=== PATIENT | female | born 1975 | race Caucasian/White ===

== ENCOUNTER → 2018-05-09 15:05 | Outpatient (CLI) | payer OTHER, SELFPAY ==
--- NOTE | 2018-05-09 15:08 | BI_ITS ---
MAMMOGRAPHY - BILATERAL SCREENING REASON FOR EXAM: Female, 42 years old. Routine annual screening examination. PERTINENT HISTORY: Non-contributory. TECHNIQUE: Digital bilateral breast landy (3D mammographic acquisition) in the CC and MLO projections. 2-D mediolateral oblique (MLO) and craniocaudad (CC) views of both breasts were obtained. CAD: Full Field Digital Mammography with Computer Added Detection was performed. COMPARISON: Comparison is made with prior study dated March 29, 2017 and December 29, 2011. FINDINGS: Breast Composition: The breasts are heterogeneously dense, which may obscure small masses. There are no dominant masses or suspicious calcifications. No other significant abnormalities are identified. There has been no significant change since the prior study. BI/SCREENING MAMM (CAD), BILAT IMPRESSION: Stable bilateral screening mammogram. Yearly follow-up mammogram recommended. (A) ASSESSMENT CATEGORY: BIRADS Category 1: Negative. A letter regarding these results will be sent to the patient by the facility within 30 days. Approximately 10% of breast cancers are not detected by mammography. A normal mammogram should not delay biopsy of a clinically suspicious abnormality. [id number] Electronically Signed: Brandon Rodriguez MD at 8:24 EDT Tel [phone], Service support ,
== END ==
PROVIDERS: Family Provider Student in an Organized Health Care Education/Training Program; PCP Student in an Organized Health Care Education/Training Program; Visit Provider Nurse Practitioner Women's Health
DX: Z12.31 Encounter for screening mammogram for malignant neoplasm of breast (principal)
CPT/HCPCS: 77063; 77067

== ENCOUNTER → 2019-05-09 08:37 | Outpatient (CLI) | payer OTHER, SELFPAY ==
[2019-05-08 16:32] VITALS: BMI 29.4
--- NOTE | 2019-05-09 08:39 | RAD_ITS ---
STUDY: X-RAY - LEFT HAND REASON FOR EXAM: Pain, mostly ulnar, no specific injury. TECHNIQUE: 3 view(s) of the hand. COMPARISON: None. FINDINGS: Normal radiocarpal articulation. Normal distal radioulnar joint. Normal visualized carpal bones. Normal carpal articulations Normal carpometacarpal articulation of the thumb. Normal second through fifth carpometacarpal joints. Normal metacarpi. Normal metacarpophalangeal joint of the thumb. Normal interphalangeal joint of the thumb. Normal proximal and distal phalanges of the thumb. Normal metacarpophalangeal joints of the second through fifth fingers. Normal proximal and distal interphalangeal joints of the second through fifth fingers. Normal phalanges of the second through fifth fingers. The soft tissue structures are unremarkable. RAD/Hand Min 3 Views IMPRESSION: Normal x-ray examination of the left hand. Electronically Signed: Bennie Fox MD at 9:24 EDT Tel , Service support ,
== END ==
PROVIDERS: Family Provider Internal Medicine; PCP Internal Medicine; Referring Provider Internal Medicine; Visit Provider Internal Medicine
DX: M25.532 Pain in left wrist (principal)
CPT/HCPCS: 73130

== ENCOUNTER → 2019-05-22 14:56 | Outpatient (CLI) | payer OTHER, SELFPAY ==
[2019-03-20 14:12] VITALS: BMI 28.0
[2019-05-08 16:32] VITALS: BMI 29.4
--- NOTE | 2019-05-22 14:58 | BI_ITS ---
MAMMOGRAPHY - BILATERAL SCREENING REASON FOR EXAM: Female, 43 years old. Routine annual screening examination. PERTINENT HISTORY: Non-contributory. TECHNIQUE: Digital bilateral breast grace (3D mammographic acquisition) in the CC and MLO projections. 2-D mediolateral oblique (MLO) and craniocaudad (CC) views of both breasts were obtained. CAD: Full Field Digital Mammography with Computer Added Detection was performed. COMPARISON: Comparison is made with prior examination of May 09, 2018 and March 29, 2017. FINDINGS: Breast Composition: The breasts are heterogeneously dense, which may obscure small masses. There are no dominant masses or suspicious calcifications. No other significant abnormalities are identified. There has been no significant change since the prior study. BI/SCREEN MAMM (CAD) W/GRACE BILAT IMPRESSION: Stable bilateral screening mammogram. Yearly follow-up mammogram recommended. (A) ASSESSMENT CATEGORY: BIRADS Category 1: Negative. A letter regarding these results will be sent to the patient by the facility within 30 days. Approximately 10% of breast cancers are not detected by mammography. A normal mammogram should not delay biopsy of a clinically suspicious abnormality. [id number] Electronically Signed: Brandon Rodriguez, at 8:17 EDT , Service support ,
== END ==
PROVIDERS: Family Provider Internal Medicine; PCP Internal Medicine; Referring Provider Nurse Practitioner Women's Health; Visit Provider Nurse Practitioner Women's Health
DX: Z12.31 Encounter for screening mammogram for malignant neoplasm of breast (principal)
CPT/HCPCS: 77063; 77067

== ENCOUNTER → 2019-06-26 14:09 | Outpatient (CLI) | payer OTHER, SELFPAY ==
[2019-05-08 16:32] VITALS: BMI 29.4
[2019-06-04 10:07] VITALS: BMI 29.4
--- NOTE | 2019-06-26 15:22 | NEURO ---
NCS and/or EMG Patient Report Ordering Doctor: Jean Keys DATE OF SERVICE: 06/26/19 Mariah Beck is a 43-year-old female presents for electrodiagnostic testing of the upper limbs. She reports numbness and tingling in both hands, worse on the right side. Electrodiagnostic findings: Right median motor nerve demonstrates prolonged distal latency with normal amplitude and conduction velocity. Normal left median motor response. Normal median F wave bilaterally. Ulnar motor responses are within normal limits, including conduction across the elbow. Ulnar F waves are normal. Right median sensory latency is prolonged at the wrist. Left median sensory latency is within normal limits. Normal ulnar and radial sensory responses. Electrodiagnostic impression: This is an abnormal study. 1. Electrodiagnostic findings demonstrate right-sided median mononeuropathy. This is consistent with a mild right carpal tunnel syndrome. There is no electrodiagnostic evidence for left-sided carpal tunnel syndrome. 2. No electrodiagnostic evidence is noted for ulnar neuropathy, including cubital tunnel syndrome. If there are any further questions, please do not hesitate to contact me.
== END ==
PROVIDERS: Family Provider Internal Medicine; PCP Internal Medicine; Referring Provider Internal Medicine; Visit Provider Internal Medicine
DX: G56.00 Carpal tunnel syndrome, unspecified upper limb (principal)
CPT/HCPCS: 95886; 95912

== ENCOUNTER → 2019-09-18 09:38 | Outpatient (CLI) | payer OTHER, SELFPAY ==
[2019-08-15 15:11] VITALS: BMI 28.8
--- NOTE | 2019-09-18 09:40 | EKG12_ITS ---
Test Reason : PALPS/BASELINE Blood Pressure : / mmHG Vent. Rate : 064 BPM Atrial Rate : 064 BPM P-R Int : 132 ms QRS Dur : 080 ms QT Int : 436 ms P-R-T Axes : 016 077 -05 degrees QTc Int : 449 ms Normal sinus rhythm Abnormal QRS-T angle, consider primary T wave abnormality Abnormal ECG Confirmed by CLYDE CRUZ ([id number]), website/blog editor TIFFANY RECINOS ([id number]) on 09/18/2019 3:07:07 PM Referred By: Jean Keys Confirmed By:CLYDE CRUZ
== END ==
PROVIDERS: PCP Internal Medicine; Referring Provider Internal Medicine; Visit Provider Internal Medicine
DX: I10 Essential (primary) hypertension (principal)
CPT/HCPCS: 93005

== ENCOUNTER → 2020-02-24 07:43 | Outpatient (CLI) | payer OTHER, SELFPAY ==
[2019-12-23 13:10] VITALS: BMI 28.8
[2020-02-24 08:33] LABS: Vitamin D,25 Hydroxy 46.1 ng/mL
[2020-02-25 06:40] LABS: SARS-COV-2 TOTAL ABS Nonreactive (Nonreactive)
== END ==
PROVIDERS: PCP Internal Medicine; Referring Provider Nurse Practitioner Family; Visit Provider Nurse Practitioner Family
DX: Z11.59 Encounter for screening for other viral diseases (principal); E55.9 Vitamin D deficiency, unspecified
CPT/HCPCS: 36415; 82306; 86769

== ENCOUNTER → 2020-05-27 14:58 | Outpatient (CLI) | payer OTHER, SELFPAY ==
[2020-03-23 10:40] VITALS: BMI 28.8
--- NOTE | 2020-05-27 14:59 | BI_ITS ---
MAMMOGRAPHY - BILATERAL SCREENING REASON FOR EXAM: Female, 44 years old. Routine annual screening examination. PERTINENT HISTORY: Non-contributory. TECHNIQUE: Digital bilateral breast grace (3D mammographic acquisition) in the CC and MLO projections. 2-D mediolateral oblique (MLO) and craniocaudad (CC) views of both breasts were obtained. CAD: Full Field Digital Mammography with Computer Added Detection was performed. COMPARISON: Comparison is made with prior study dated 05/22/2019 and 05/09/2018. FINDINGS: Breast Composition: The breasts are extremely dense, which lowers the sensitivity of mammography. There are no dominant masses or suspicious calcifications. No other significant abnormalities are identified. There has been no significant change since the prior study. BI/SCREEN MAMM (CAD) W/GRACE BILAT IMPRESSION: Stable bilateral screening mammogram. Yearly follow-up mammogram recommended. (A) ASSESSMENT CATEGORY: BIRADS Category 1: Negative. A letter regarding these results will be sent to the patient by the facility within 30 days. Approximately 10% of breast cancers are not detected by mammography. A normal mammogram should not delay biopsy of a clinically suspicious abnormality. [id number] Electronically Signed: Brandon Rodriguez, at 15:56 EST , Service support ,
== END ==
PROVIDERS: PCP Internal Medicine; Referring Provider Internal Medicine; Visit Provider Internal Medicine
DX: Z12.31 Encounter for screening mammogram for malignant neoplasm of breast (principal)
CPT/HCPCS: 77063; 77067

== ENCOUNTER → 2020-09-23 | Outpatient (CLI) | payer OTHER, SELFPAY ==
[2020-09-23 15:12] VITALS: BMI 29.2
[2020-09-30 12:57] LABS: HPV APTIMA, High Risk Negative (Negative)
== END | disposition home or self-care (01) ==
LOC: LABSPEC 16:53
PROVIDERS: PCP Internal Medicine; Referring Provider Nurse Practitioner Women's Health; Visit Provider Nurse Practitioner Women's Health
DX: Z12.4 Encounter for screening for malignant neoplasm of cervix (principal)
CPT/HCPCS: 87624; 88175; G0145

== ENCOUNTER 2021-11-03 07:23 | Outpatient (CLI) | payer OTHER, SELFPAY ==
[2021-11-03 09:23] LABS: Absolute Neutrophil Count 2.4 X10^3/uL (2.0-7.7); Basophil# 0.04 X10^3/uL; Basophil% 0.8 % (0-1); Eosinophil# 0.13 X10^3/uL; Eosinophils% 2.7 % (0-5); Hematocrit 39.4 % (37-47); Hemoglobin 13.5 g/dL (12.0-15.0); Mean Corp Hgb Conc 34.3 g/dL (32-36); Mean Corpuscular Hgb 30.5 pg (27.0-32.0); Mean Corpuscular Volume 89.1 fL (81-99); Mean Platelet Vol. 8.8 fl (6.2-12.0); Monocyte# 0.34 X10^3/uL; NRBC Flagged by Analyzer 0 % (0-5); Neutrophil # 2.36 X10^3/uL (2.7-7.7); Neutrophil % 48.3 % (47-70); Platelet Count 408 K/mm3 (150-450); RBC Distribution Width CV 12.3 % (11.6-14.6); RBC Distribution Width SD 40.3 fl (35.1-43.9); Red Blood Count 4.42 M/mm3 (4.2-5.4); White Blood Count 4.9 K/mm3 (4.4-11.0)
[2021-11-03 10:02] LABS: Vitamin B12 490 pg/mL (211-911); Vitamin D,25 Hydroxy 34.8 ng/mL
[2021-11-03 10:09] LABS: Anion Gap 6 (5-15); BUN 15 mg/dL (7-18); BUN/Creat Ratio 18.3 RATIO (10-20); Calcium,Total 8.7 mg/dL (8.5-10.1); Chloride 105 mmol/L (98-107); Creatinine, Serum 0.82 mg/dL (0.55-1.02); EST Glomerular Filtration Rate 80 mL/min (>60); Est Glom Filt Rate - Afr Amer 97 mL/min (>60); Glucose 91 mg/dL (74-106); Potassium 3.6 mmol/L (3.5-5.1); Sodium Level 137 mmol/L (136-145)
[2021-11-03 10:16] LABS: Thyroid Stim Hormone (TSH) 2.43 uIU/mL (0.358-3.74)
== END 2021-11-03 23:59 | disposition home or self-care (01) ==
LOC: LAB 07:25
PROVIDERS: PCP Internal Medicine; Referring Provider Nurse Practitioner Women's Health; Visit Provider Nurse Practitioner Women's Health
DX: I10 Essential (primary) hypertension (principal); R53.83 Other fatigue; Z13.29 Encounter for screening for other suspected endocrine disorder
CPT/HCPCS: 36415; 80048; 82306; 82607; 84443; 85025

== ENCOUNTER 2021-11-04 14:05 | Outpatient (CLI) | payer OTHER, SELFPAY ==
--- NOTE | 2021-11-04 14:07 | BI_ITS ---
MAMMOGRAPHY - BILATERAL SCREENING REASON FOR EXAM: Female, 46 years old. Routine annual screening examination. PERTINENT HISTORY: Non-contributory. TECHNIQUE: Digital bilateral breast grace (3D mammographic acquisition) in the CC and MLO projections. 2-D mediolateral oblique (MLO) and craniocaudad (CC) views of both breasts were obtained. CAD: Full Field Digital Mammography with Computer Added Detection was performed. COMPARISON: Comparison is made with prior study dated 05/27/2020 and 05/22/2019. FINDINGS: Breast Composition: The breasts are extremely dense, which lowers the sensitivity of mammography. There are no dominant masses or suspicious calcifications. No other significant abnormalities are identified. There has been no significant change since the prior study. BI/SCRN MAMM (CAD)W/GRACE BILAT IMPRESSION: Stable bilateral screening mammogram. Yearly follow-up mammogram recommended. (A) ASSESSMENT CATEGORY: BIRADS Category 1: Negative. A letter regarding these results will be sent to the patient by the facility within 30 days. Approximately 10% of breast cancers are not detected by mammography. A normal mammogram should not delay biopsy of a clinically suspicious abnormality. [id number] Electronically Signed: Brandon Rodriguez MD at 14:43 EDT ,
== END 2021-11-04 23:59 | disposition home or self-care (01) ==
LOC: OPBI 14:05
PROVIDERS: PCP Internal Medicine; Visit Provider Nurse Practitioner Women's Health
DX: Z12.31 Encounter for screening mammogram for malignant neoplasm of breast (principal)
CPT/HCPCS: 77063; 77067

== ENCOUNTER 2022-10-10 07:05 | Day surgery (SDC) | payer OTHER, SELFPAY ==
[2022-10-10 07:25] VITALS: BP 145/97; PULSE 92; RESP 16; TEMP 37; O2SAT 100; BMI 30.2
--- NOTE | 2022-10-10 07:30 | HP.PCM_ITS ---
HPI - General General Date of Admission: 10/10/22 HPI Narrative MILVIA JUAREZ, is a 47 F who presents for: B. Patient never had previous colonoscopy. Patient has bowel movements daily denies any blood. Patient's dad did have multiple polyps in his 60s patient's not stated they are larger in size. Denies any family history of colon cancer. Patient has reflux only when eating certain foods otherwise not on any medication for this and does not have this regularly. Patient denies any chronic abdominal pain/nausea/vomiting. [facility] Medical History Alcohol use Carpal tunnel syndrome Colon cancer screening Fatigue Gestational hypertension Health care maintenance Hearing problem Heartburn History of gestational diabetes Hypertension Left shoulder pain Non-smoker Seasonal allergies Wears hearing aid Home Medications hydrochlorothiazide 25 mg tablet 25 mg PO QAM #90 tabs 08/22/22 [Rx Last Taken Unknown] Allergy/AdvReac Type Severity Reaction Status Date / Time labetalol Allergy Severe Rash Verified 10/10/22 07:17 Sulfa (Sulfonamide Allergy Severe Rash Verified 10/10/22 07:17 Antibiotics) adhesive AdvReac Rash Verified 10/10/22 07:17 Family History (Updated 08/15/22 @ 08:21 by Jany Banks) Mother Alcoholism Bladder cancer Depression Colon polyps Father Diabetes Myocardial infarction Hypertension Colon polyps Grandfather Diabetes High cholesterol Grandfather Diabetes High cholesterol Grandmother Myocardial infarction High cholesterol Other Heart disease Surgical History delivery delivered Hx of wisdom tooth extraction uterine ablation Social History Smoking Status: Never smoker alcohol intake: current alcohol intake frequency: a few times a month substance use type: does not use caffeine: Yes frequency: 3-4 times per week seatbelt use: always do you feel safe at home: Yes additional social history: Bill- Self Employed Patient is the employee health nurse at [employer] Past Medical/Surgical History Planned Operation Planned Operative Procedure/s: CSCOPE OA Previous Hospitalizations/Surgeries HX Hospitalizations: No Any Problems With Anesthesia: No You/Your Family Experience Fever (Hyperthermia) With Anes: No Cholinesterase deficiency: No Cardiovascular Hx of Irregular Heartbeat and/or Afib: No Hx Heart Attack: No Hx Congestive Heart Failure: No Hx Hypertension: Yes (CONTROLLED WITH MED) Hx Internal Defibrillator: No Hx Pacemaker: No Respiratory Hx Chronic Obstructive Pulmonary Disease (COPD): No Hx Asthma: No Hx Emphysema: No Hx Sleep Apnea: No Hx Respiratory Tract Infection/Cold (presently): No Do You Snore Loudly (louder than talking or can be heard): Yes Do You Often Feel Tired/ Fatigued/ Sleepy Dring Daytime?: Yes Has Anyone Observed You Stop Breathing During Sleep?: No Result (for STOP score): Positive Smoking Status: Never smoker Gastrointestinal Hx Gastroesophageal Reflux: No Hx Ulcer: No Special diet followed at home: No Neurological Hx Seizures: No Hx Multiple Sclerosis: No Hx Parkinson's Disease: No Hx Head/Neck Injury: No Hx Headaches: No Hx Back Injury/Pain: No Does patient have nerve stimulator: No Reproduction : No Endocrine Hx Diabetes: No (Hx GDM 1 st preg) Psycho/Social Hx Anxiety: No Hx Depression: No Miscellaneous Recent Exposure to Contagious Disease: No Allergies labetalol Allergy (Severe, Verified 10/10/22 07:17) Rash Sulfa (Sulfonamide Antibiotics) Allergy (Severe, Verified 10/10/22 07:17) Rash adhesive Adverse Reaction (Verified 10/10/22 07:17) Rash Discharge Is Pt Admitted From a Senior Living, or a Custodial: No After D/C, Where Do you Plan to Go: Return Home Vital Signs Vital Signs Vital Signs: 10/10/22 07:25 10/10/22 07:25 Temperature 98.6 F Temperature Source Temporal Pulse Rate 92 Respiratory Rate 16 Respiratory Pattern Normal Blood Pressure 145/97 H Blood Pressure Mean 113 Blood Pressure Source Monitor Blood Pressure Position Semi-Fowlers Blood Pressure Location Right Arm Pulse Ox 100 Oxygen Delivery Method Room Air Weight Weight: 181 lb 10.574 oz Body Mass Index (BMI) 30.2 Physical Exam Const alert, oriented x3 and no apparent distress HEENT normocephalic and head/scalp atraumatic Resp normal respiratory effort Cardio regular rate GI soft to palpation and non-tender; Negative for non-distended Palpation: Negative for guarding Extremity no clubbing, cyanosis or edema Neuro CN's II-XII intact bilaterally Psych mental status grossly normal Assessment & Plan Assessment/Plan (1) Colon cancer screening: Surgery Risks - Colonoscopy Risks Include but are not Limited To: Risks include but are not limited to: Bleeding, perforation requiring further surgery, inability to complete colonoscopy requiring barium enema.
[2022-10-10] MEDS: Lactated Ringers 1,000 ML 15 ML IV (07:33)
--- NOTE | 2022-10-10 08:30 | COLBX_PTH ---
PATIENT: MILVIA JUAREZ LOC: [facility] U#:[id number] AGE/SX: 47/F ROOM: RE10/10/[address]: Dr. Breanna Danielle MD : 1975 BED: DIS: 10/10/2022 SPEC #: [id number] RECD: 10/10/22 11:04 STATUS: NEAL SHAE #: [id number] CHET: 10/10/22 08:[address]: Breanna Danielle DEPT: SURGICAL PATHOLOGY RECD BY: Criss Peacock ENTERED: 10/10/22 12:41 SP TYPE: COLON BX OTHR DR: Dr. Jean Keys MD Tissues: A - Sigmoid colon biopsy B - Rectum, NOS Procedures: Surgery Specimen Level IV HEADER OPERATION: Colonoscopy ? open access (MAC), biopsy PRE-OP DIAGNOSIS: Colon cancer screening TISSUE SUBMITTED: A ? Sigmoid polyp biopsy, B ? Rectum polyp biopsy MICROSCOPIC DIAGNOSIS A. Sigmoid polyp, biopsy: Hyperplastic polyp. B. Rectum polyp, biopsy: Tubular adenoma. REKHA:keily 10/11/2022 MICROSCOPIC DESCRIPTION Slides are reviewed. GROSS DESCRIPTION A - Received in fixative is one container labeled with the patient's name and designated sigmoid polyp biopsy. The specimen consists of one irregular fragment of light rausch soft tissue that measures 0.3 x 0.2 x 0.1 cm. The specimen is totally submitted in one cassette. B - Received in fixative is one container labeled with the patient's name and designated rectum polyp biopsy. The specimen consists of multiple irregular fragments of light rausch soft tissue that in aggregate measure 1.0 x 0.2 x 0.1 cm. The specimen is totally submitted in one cassette. / REKHA:keily 10/10/2022 TC:1 CPT: 06600 x2
[2022-10-10 08:41] VITALS: BP 117/80; BP 145/97; PULSE 94; RESP 18; TEMP 36.5; O2SAT 99
[2022-10-10 08:45] VITALS: BP 119/92; BP 145/97; PULSE 86; RESP 12; O2SAT 97
--- NOTE | 2022-10-10 08:49 | OP.COLON_ITS ---
Patient Name: Mariah Beck Procedure Date: 10/10/2022 8:07 AM Date of : 1975 Age: 47 Procedure: Colonoscopy Indications: Screening for colorectal malignant neoplasm Providers: Breanna Danielle MD Medicines: Monitored Anesthesia Care Patient Profile: This is a 47 year old female. Last Colonoscopy: none. The patient's first colonoscopy is today. Complications: No immediate complications. Procedure: Pre-Anesthesia Assessment: - Prior to the procedure, a History and Physical was performed, and patient medications and allergies were reviewed. The patient's tolerance of previous anesthesia was also reviewed. The risks and benefits of the procedure and the sedation options and risks were discussed with the patient. All questions were answered, and informed consent was obtained. Prior Anticoagulants: The patient has taken no previous anticoagulant or antiplatelet agents. ASA Grade Assessment: Per anesthesia. After reviewing the risks and benefits, the patient was deemed in satisfactory condition to undergo the procedure. After I obtained informed consent, the scope was passed under direct vision. Throughout the procedure, the patient's blood pressure, pulse, and oxygen saturations were monitored continuously. The pediatric colonoscope was introduced through the anus and advanced to the cecum, identified by the appendiceal orifice, ileocecal valve and palpation. The colonoscopy was performed without difficulty. The patient tolerated the procedure well. The quality of the bowel preparation was good. Scope In: 8:17:53 AM Scope Withdrawal Time 0 hours 10 minutes 11 seconds Scope Out: 8:35:43 AM Total Procedure Duration Time 0 hours 17 minutes 50 seconds Findings: The perianal and digital rectal examinations were normal. Two sessile polyps were found in the rectum and sigmoid colon. The polyps were less than 5 mm in size. These polyps were removed with a cold biopsy forceps. Resection and retrieval were complete. The exam was otherwise without abnormality on direct and retroflexion views. Impression: - Two less than 5 mm polyps in the rectum and in the sigmoid colon, removed with a cold biopsy forceps. Resected and retrieved. - The examination was otherwise normal on direct and retroflexion views. Recommendation: - Discharge patient to home. - Resume previous diet. - Continue present medications. - Await pathology results. - Repeat colonoscopy in 5-10 years for surveillance based on pathology results. Procedure Code(s): --- Professional --- 31876, PT, Colonoscopy, flexible; with biopsy, single or multiple Diagnosis Code(s): --- Professional --- Z12.11, Encounter for screening for malignant neoplasm of colon K62.1, Rectal polyp D12.5, Benign neoplasm of sigmoid colon CPT copyright 2017 [employer]. All rights reserved. The codes documented in this report are preliminary and upon digital field service technician review may be revised to meet current compliance requirements. MD Breanna Gallego MD 10/10/2022 8:49:20 AM This report has been signed electronically. Number of Addenda: 0 Note Initiated On: 10/10/2022 8:07 AM
[2022-10-10 08:50] VITALS: BP 131/93; BP 145/97; PULSE 91; RESP 18; O2SAT 98
--- NOTE | 2022-10-10 08:50 | OP.CCLET_ITS ---
10/10/2022 Jean Keys MD [address] [place] [address] Re : Colonoscopy procedure for Mariah Beck Dear Dr. Keys This procedure was performed on Monday, October 10, 2022. My impressions and recommendations are as follows: Impressions : - Two less than 5 mm polyps in the rectum and in the sigmoid colon, removed with a cold biopsy forceps. Resected and retrieved. - The examination was otherwise normal on direct and retroflexion views. Recommendations : - Discharge patient to home. - Resume previous diet. - Continue present medications. - Await pathology results. - Repeat colonoscopy in 5-10 years for surveillance based on pathology results. My findings are described in the full procedure note, which is enclosed. If I can be of further assistance, please feel free to contact me at Doctor phone number(s): , Work: . Sincerely, MD Breanna Gallego MD 10/10/2022 8:49:20 AM This report has been signed electronically.
[2022-10-10 08:53] VITALS: BP 130/88; BP 145/97; PULSE 82; RESP 18; TEMP 36.7; O2SAT 100
[2022-10-10 09:10] VITALS: BP 145/97
== END 2022-10-10 09:32 | disposition home or self-care (01) ==
LOC: EN 07:07 → AC 07:09
PROVIDERS: PCP Internal Medicine; Referring Provider Internal Medicine; Visit Provider Surgery
PROC: 0DJD8ZZ Inspection of Lower Intestinal Tract, Via Natural or Artificial Opening Endoscopic (ICD-10-PCS; CPT 45378; principal; 2022-10-10 08:25)
DX: Z12.11 Encounter for screening for malignant neoplasm of colon (principal); D12.8 Benign neoplasm of rectum; I10 Essential (primary) hypertension; Z79.899 Other long term (current) drug therapy
CPT/HCPCS: 45380; 88305; J7120; J2405

== ENCOUNTER → 2022-11-07 | Outpatient (CLI) | payer OTHER, SELFPAY ==
--- NOTE | 2022-11-07 14:38 | BI_ITS ---
MAMMOGRAPHY - BILATERAL SCREENING REASON FOR EXAM: Female, 47 years old. Routine annual screening examination. PERTINENT HISTORY: Non-contributory. TECHNIQUE: Digital bilateral breast grace (3D mammographic acquisition) in the CC and MLO projections. 2-D mediolateral oblique (MLO) and craniocaudad (CC) views of both breasts were obtained. CAD: Full Field Digital Mammography with Computer Added Detection was performed. COMPARISON: Comparison is made with prior study dated November 04, 2021 and May 27, 2020. FINDINGS: Breast Composition: The breasts are extremely dense, which lowers the sensitivity of mammography. There are no dominant masses or suspicious calcifications. Stable small benign-appearing bilateral axillary lymph nodes. No other significant abnormalities are identified. There has been no significant change since the prior study. BI/SCRN MAMM (CAD)W/GRACE BILAT IMPRESSION: Stable bilateral screening mammogram. Yearly follow-up mammogram recommended. (A) ASSESSMENT CATEGORY: BIRADS Category 2: Benign. A letter regarding these results will be sent to the patient by the facility within 30 days. Approximately 10% of breast cancers are not detected by mammography. A normal mammogram should not delay biopsy of a clinically suspicious abnormality. [id number] Electronically Signed: Brandon Rodriguez MD at 15:24 EDT ,
== END | disposition home or self-care (01) ==
LOC: OPBI 14:37
PROVIDERS: PCP Internal Medicine; Referring Provider Nurse Practitioner Women's Health; Visit Provider Nurse Practitioner Women's Health
DX: Z12.31 Encounter for screening mammogram for malignant neoplasm of breast (principal)
CPT/HCPCS: 77063; 77067

== ENCOUNTER → 2023-05-01 | Outpatient (CLI) | payer OTHER, SELFPAY ==
[2023-05-01 16:35] LABS: Bacteria 0 SEEN /hpf (None Seen); Mucous, Urine 0 SEEN /hpf (<or=2+); Red Blood Cells-Urine 0 SEEN /hpf (0-5); Squamous Epithelial Cells - UA 0 SEEN /hpf (5-10); White Blood Cells 0 SEEN /hpf (0-5)
[2023-05-01 18:13] LABS: Color, Urine Yellow (Yellow); Glucose, Dipstick Normal (Normal); Ketone-Dipstick Negative (Negative); Leukocyte Esterase-Dipstick Negative /ul (Negative); Nitrite-Dipstick Negative (Negative); Occult Blood-Urine 25 /ul (Negative); Protein-Dipstick Negative (Negative); Urine Bilirubin Dipstick Negative (Negative); Urine Clarity Clear (Clear); Urine Urobilinogen Normal (Normal)
== END | disposition home or self-care (01) ==
PROVIDERS: PCP Internal Medicine; Visit Provider Internal Medicine
DX: R10.9 Unspecified abdominal pain (principal)
CPT/HCPCS: 81001; 87086

== ENCOUNTER → 2023-11-09 | Outpatient (CLI) | payer OTHER, SELFPAY ==
[2023-11-09 10:29] LABS: Vitamin B12 432 pg/mL (211-911); Vitamin D,25 Hydroxy 35.2 ng/mL
[2023-11-09 17:48] LABS: Magnesium 2.1 mg/dL (1.6-2.6); T4 Free Direct 1.01 ng/dL (0.76-1.46); Thyroid Stim Hormone (TSH) 2.97 uIU/mL (0.358-3.74)
[2023-11-10 04:07] LABS: Thyroid Peroxidase AB < 9 IU/mL (0-34)
== END | disposition home or self-care (01) ==
PROVIDERS: PCP Internal Medicine; Visit Provider Nurse Practitioner Women's Health
DX: G47.9 Sleep disorder, unspecified (principal); Z13.29 Encounter for screening for other suspected endocrine disorder; Z13.21 Encounter for screening for nutritional disorder
CPT/HCPCS: 36415; 82306; 82607; 83735; 84439; 84443; 86376

== ENCOUNTER → 2023-11-22 | Outpatient (CLI) | payer OTHER, SELFPAY ==
--- NOTE | 2023-11-22 15:13 | BI_ITS ---
MAMMOGRAPHY - BILATERAL SCREENING REASON FOR EXAM: Female, 48 years old. Routine annual screening examination. PERTINENT HISTORY: Non-contributory. TECHNIQUE: Digital bilateral breast grace (3D mammographic acquisition) in the CC and MLO projections. 2-D mediolateral oblique (MLO) and craniocaudad (CC) views of both breasts were obtained. CAD: Full Field Digital Mammography with Computer Added Detection was performed. COMPARISON: Comparison is made with prior study dated November 07, 2022 and November 04, 2021. FINDINGS: Breast Composition: The breasts are extremely dense, which lowers the sensitivity of mammography. There are no dominant masses or suspicious calcifications. No other significant abnormalities are identified. There has been no significant change since the prior study. BI/SCRN MAMM (CAD)W/GRACE BILAT IMPRESSION: Stable bilateral screening mammogram. Yearly follow-up mammogram recommended. (A) ASSESSMENT CATEGORY: BIRADS Category 1: Negative. A letter regarding these results will be sent to the patient by the facility within 30 days. Approximately 10% of breast cancers are not detected by mammography. A normal mammogram should not delay biopsy of a clinically suspicious abnormality. [id number] Electronically Signed: Brandon Rodriguez MD at 15:54 EDT ,
== END | disposition home or self-care (01) ==
LOC: OPBI 15:13
PROVIDERS: PCP Internal Medicine; Referring Provider Nurse Practitioner Women's Health; Visit Provider Nurse Practitioner Women's Health
DX: Z12.31 Encounter for screening mammogram for malignant neoplasm of breast (principal)
CPT/HCPCS: 77063; 77067

== ENCOUNTER → 2024-09-23 | Outpatient (CLI) | payer OTHER, SELFPAY ==
[2024-09-23 10:56] LABS: Cholesterol 183 mg/dL (<=200); Follicle Stimulating Hormone 18.6 mIU/mL; Glucose 96 mg/dL (70-99); High Density Lipoprotein 43 mg/dL; Low Density Lipoprotein Calc. 118 mg/dL; Triglycerides 107 mg/dL; Very Low Density Lipoprotein 21 mg/dL (5-40); Vitamin D,25 Hydroxy 27.8 ng/mL (30-100); cholesterol:hdl ratio screen 4.22
== END | disposition home or self-care (01) ==
PROVIDERS: PCP Internal Medicine; Referring Provider Obstetrics & Gynecology; Visit Provider Obstetrics & Gynecology
DX: N95.1 Menopausal and female climacteric states (principal); Z13.29 Encounter for screening for other suspected endocrine disorder; Z13.220 Encounter for screening for lipoid disorders; Z13.1 Encounter for screening for diabetes mellitus; Z13.21 Encounter for screening for nutritional disorder
CPT/HCPCS: 80061; 82306; 82670; 82947; 83001; 84443

== ENCOUNTER → 2025-01-06 | Outpatient (CLI) | payer OTHER, SELFPAY ==
--- NOTE | 2025-01-06 14:30 | BI_ITS ---
EXAM: SCRN MAMM (CAD)W/GRACE BILAT DATE: 01/06/2025 CLINICAL HISTORY: F, Age 49 y/o , SCREENING FOR BREAST CANCER No family history. BREAST CANCER RISK ASSESSMENT: Not assessed. TECHNIQUE: Bilateral screening digital breast tomosynthesis with 2D and 3D images. Computer aided detection. COMPARISON: Prior exam(s) dated November 22, 2023.. FINDINGS: TISSUE DENSITY: The breast tissue is extremely dense which lowers the sensitivity of mammography. Bilateral Breast Mammographic Findings: No significant masses, calcifications or other abnormalities are identified. No suspicious masses, areas of developing architectural distortion, or suspicious calcifications. There has been no significant interval change. BI/SCRN MAMM (CAD)W/GRACE BILAT IMPRESSION: Stable examination. OVERALL FINAL ASSESSMENT BI-RADS 1: NEGATIVE. RECOMMEND ANNUAL MAMMOGRAPHIC SCREENING. RECOMMENDATION: Routine annual follow-up in 1 Year A letter with findings and recommendations will be mailed to the patient. Reading Location: [place] [address]
== END | disposition home or self-care (01) ==
LOC: OPBI 14:23
PROVIDERS: PCP Internal Medicine; Referring Provider Nurse Practitioner Women's Health; Visit Provider Nurse Practitioner Women's Health
DX: Z12.31 Encounter for screening mammogram for malignant neoplasm of breast (principal)
CPT/HCPCS: 77063; 77067

== ENCOUNTER → 2025-02-06 | Outpatient (CLI) | payer OTHER, SELFPAY ==
--- NOTE | 2025-02-06 13:28 | US_ITS ---
PROCEDURE: BREAST LIMITED UNILATERAL 02/06/2025 REASON FOR EXAM: F, Age 49 y/o , RT BREAST LUMP Painful right breast lump. The overlying skin is red and swollen. COMPARISON: Prior mammogram dated January 06, 2025.. TECHNIQUE: BREAST LIMITED UNILATERAL FINDINGS: The palpable area corresponds to a 0.8 cm x 2 cm x 0.4 cm heterogeneous complex cystic area with surrounding edema. This is at the 5 o'clock position of the breast at 10 cm from the nipple. This is just deep to the skin surface and there is a track exiting to the skin surface. This most likely represents either a focal abscess or possible infected sebaceous cyst. US/Breast Limited Unilateral IMPRESSION: The painful lump corresponds to a complex cystic area with surrounding edema an d tract heading towards the skin surface suggestive of either infected sebaceous cyst or possible abscess. BI-RADS 2: BENIGN RECOMMENDATION: Tissue diagnosis recommended. Reading Location: [place] [address]
--- OUTSIDE RECORDS SUMMARY | 2025-02-06 19:54 | XMS RPT_ITS | CCD ---
Author Organization [facility] Care Team Providers Care Entry Level Accountant Name Role Phone Tres ZEPEDA, Chetna Iglesias Unavailable [phone] Trevor RECORD LABEL INTERN, Eden S Unavailable [phone] MAT Prescott RN, Annamarie Damian Unavailable Unavailabl e Lizz Hawkins DC Unavailable Trevor RECORD LABEL INTERN, Eden S Unavailable [phone] Dr. Jean Keys Primary Care Provider [phone] Dr. Jean Keys Referring Provider [phone] Dr. Lizz Hawkins Attending Provider [phone] Trevor RECORD LABEL INTERN, RECORD LABEL INTERN-C Eden Attending Provider [phone] Dr. Jean Keys Attending Provider [phone] Dr. Jean Keys Primary Care Provider [phone]) Jany Banks Attending Provider Unavailable Dr. Jean Keys Referring Provider [phone] Dr. Breanna Danielle Attending Provider Dr. Breanna Danielle Other Provider Dr. Jean Keys Primary Care Provider [phone]) Dr. Jean Keys Referring Provider [phone] Dr. Lizz Hawkins Attending Provider [phone] Trevor RECORD LABEL INTERN, RECORD LABEL INTERN-C Eden Attending Provider [phone] [phone] Dr. Jean Keys Primary Care Provider 1(33 [phone]) Dr. Jean Keys Referring Provider [phone] Dr. Jean Keys Attending Provider [phone] Jonathan Sandoval Attending Provider Ludmila ZEPEDA, Dr. Pena Primary Care Provider Dr. Leyla Corona DO Attending Provider Little Allen DO, Dr. Mayer Referring Provider Assessment, Health Risk Attending Provider Unava ilable Assessment, Health Risk Referring Provider Unava ilable Ludmila ZEPEDA, Dr. Pena Referring Provider [phone] Jonathan Sandoval Attending Provider Dr. Lizz Hawkins DC Attending Provider [phone] Trevor RECORD LABEL INTERN-C, Eden Attending Provider Erik Quinn Attending Provider [phone] Trevor RECORD LABEL INTERN-C, Eden Referring Provider [phone] Assessment, Health Risk Attending Unavaila ble Assessment, Health Risk Referring Unavaila ble Oleghe, Efewongbe Primary Care Unavailable [place] RECORD LABEL INTERN, Eden Attending Unavailable Oleghe, Efewongbe Referring Unavailable Oleghe, Efewongbe Primary Care Unavailable Erik Quinn Attending Unavailable Oleghe, Efewongbe Referring Unavailable Oleghe, Efewongbe Primary Care Unavailable Lizz Hawkins Attending Unavailable Jonathan Sandoval Attending Unavailable Trevor RECORD LABEL INTERN, Eden Attending Unavailable Oleghe, Efewongbe Referring Unavailable Oleghe, Efewongbe Primary Care Unavailable Oleghe, Efewongbe Referring Unavailable Oleghe, Efewongbe Primary Care Unavailable Lizz Hawkins Attending Unavailable Oleghe, Efewongbe Referring Unavailable Oleghe, Efewongbe Primary Care Unavailable Jonathan Sandoval Attending Unavailable Trevor RECORD LABEL INTERN, Eden Attending Unavailable [place] RECORD LABEL INTERN, Eden Referring Unavailable Oleghe, Efewongbe Primary Care Unavailable Leyla Corona Referring Unavailabl e Oleghe, Efewongbe Primary Care Unavailable Leyla Corona Attending Unavailchelsie Keys MD, Dr. Pena Primary Care Provider Barbara Coffman Attending Provider Allergies Allergy Classification Reported Allergen(s) Allergy Type Date of Onset Reaction(s) Facility (8 sources) labetalol drug allergy 03-13-20 17 [facility] (8 sources) sulfamethoxazole / trimethoprim drug allergy 03-13-20 17 [facility] (10 sources) Labetalol Drug Allergy 10-26-19 22 unknown, [facility] (11 sources) Sulfonamides (Antibiotic); Translations: [Sulfa (Sulfonamide Antibiotics)] Allergy to substance 10-26-19 22 unknown, [facility] (5 sources) Adhesive agent; Translations: [adhesive] Propensity to adverse reactions 10-11-19 23 [facility] (1 source) Labetalol Drug Allergy 12-27-19 25 [facility] Repository Medications Current Medications Medication Drug Class(es) Dates Sig (Normalized) Sig (Original) cholecalciferol 0.05 mg oral capsule (20 sources) Vitamin D Start: 11-14-2024 take 1 capsule by mouth once daily Cholecalciferol (Vitamin D3) 50 mcg (2,000 unit) capsule Active 50 ug PO daily November 14, 2024 12:00am Start: 10-26-2020 End: 10-25-2021 take 1 capsule by mouth once daily Cholecalciferol (Vitamin D3) 25 mcg (1,000 unit) capsule Discontinued 2000 U PO DAILY October 26, 2020 2:56pm October 25, 2021 3:11pm Start: 03-23-2020 End: 10-26-2020 take 1 capsule by mouth once daily Cholecalciferol (Vitamin D3) 25 mcg (1,000 unit) capsule Discontinued 25 ug PO DAILY March 23, 2020 12:00am October 26, 2020 2:57pm estradiol 1 mg oral tablet (8 sources) Estrogen Start: 12-25-2024 take 1 tablet by mouth once daily Estradiol 1 mg tablet Active 1 mg PO DAILY 22 07December 25, 2024 12:00am Start: 11-14-2024 End: 12-09-2024 apply 1 dose transdermal route two times weekly, then apply 1 dose transdermal route once Estradiol 0.05 mg/24 hr patch semiweekly Discontinued 1 NMA TD TWICE A WEEK 8 November 14, 2024 12:00am December 09, 2024 10:22am apply 1 patch for 3 days alternating with 1 patch for 4 days each week meloxicam 15 mg oral tablet (20 sources) Nonsteroidal Anti-inflammatory Drug Start: 11-27-2023 take 1 tablet by mouth once daily as needed for pain Meloxicam 15 mg tablet Active 15 mg PO DAILY as needed for pain 90 November 27, 2023 2:35pm Start: 05-31-2021 End: 10-25-2021 take 1 tablet by mouth once daily Meloxicam 15 mg tablet Discontinued 15 mg PO DAILY 90 2 May 31, 2021 1:00am October 25, 2021 3:11pm Start: 05-08-2019 End: 08-15-2019 take 1 tablet by mouth once daily as needed for pain Meloxicam 15 mg tablet Discontinued 15 mg PO DAILY as needed for pain 60 July 03, 2019 2:29pm August 15, 2019 4:16pm progesterone 100 mg oral capsule (8 sources) Progesterone Start: 12-25-2024 take 1 capsule by mouth at bedtime Progesterone Micronized (Prometrium) 100 mg capsule Active 100 mg PO AT BEDTIME 30 December 25, 2024 12:00am Start: 11-14-2024 End: 12-09-2024 take 1 capsule by mouth at bedtime Progesterone Micronized (Prometrium) 100 mg capsule Discontinued 100 mg PO AT BEDTIME 30 November 14, 2024 12:00am December 09, 2024 10:22am Completed/Discontinued Medications Medication Drug Class(es) Dates Sig (Normalized) Sig (Original) amLODIPine 5 mg oral tablet (20 sources) Dihydropyridine Calcium Channel Jr Start: 10-07-2019 End: 05-31-2021 take 1 tablet by mouth once daily Amlodipine 5 mg tablet Discontinued 5 mg PO DAILY 90 0 January 21, 2021 11:10am May 31, 2021 3:52pm Start: 08-15-2019 End: 10-07-2019 take 1 tablet by mouth once daily Amlodipine 2.5 mg tablet Discontinued 2.5 mg PO DAILY 60 August 15, 2019 1:00am October 07, 2019 3:19pm amoxicillin 875 mg / clavulanate 125 mg oral tablet (11 sources) Penicillin-class Antibacterial Start: 11-11-2024 End: 12-25-2024 Amoxicillin-Pot Clavulanate 875-125 mg tablet Discontinued 1 {tbl} PO Q12H 14 0 November 11, 2024 12:00am December 25, 2024 9:17am Start: 05-01-2023 End: 11-08-2023 Amoxicillin-Pot Clavulanate 875-125 mg tablet Discontinued 1 {tbl} PO TWICE A DAY 20 May 01, 2023 12:00am November 08, 2023 1:02pm Start: 05-01-2023 End: 11-08-2023 take 1 tablet by mouth twice daily Amoxicillin-Pot Clavulanate Discontinued 1 TABLET PO TWICE A DAY May 01, 2023 12:00am November 08, 2023 1:02pm azithromycin 250 mg oral tablet (5 sources) Macrolide Antimicrobial Start: 08-14-2024 End: 11-11-2024 take 2-5 tablets by mouth once daily Azithromycin (Zithromax Z-Antelmo) 250 mg tablet Discontinued 0 PO .COMPLEX 6 0 August 14, 2024 1:00am November 11, 2024 2:29pm take 500 mg today (day 1), then 250 mg for 4 days (days 2-5) PO benzonatate 100 mg oral capsule (5 sources) Non-narcotic Antitussive Start: 08-14-2024 End: 11-14-2024 Benzonatate 100 mg capsule Discontinued 100 mg PO 2 to 3 times per day as needed for cough 15 0 August 14, 2024 1:00am November 14, 2024 8:47am Ciprofloxacin-[place] cortisone (Cipro Hc) 0.2-1 % drops,suspension (4 sources) Start: 11-11-2024 End: 11-18-2024 Ciprofloxacin-Hydr ocortisone (Cipro Hc) 0.2-1 % drops,suspension Discontinued 3 NMA OTIC TWICE A DAY 10 7 0 November 11, 2024 12:00am November 17, 2024 12:00am November 18, 2024 12:08am 3 gtt left ear BID x 7 days Start: 11-11-2024 End: 11-18-2024 Ciprofloxacin-Hydrocortisone (Cipro Hc) 0.2-1 % drops,suspension Discontinued 3 NMA OTIC TWICE A DAY 10 7 November 11, 2024 12:00am November 17, 2024 12:00am November 18, 2024 12:08am 3 gtt left ear BID x 7 days citalopram 20 mg oral tablet (9 sources) Serotonin Reuptake Inhibitor Start: 03-13-2017 End: 04-10-2017 take 1 tablet by mouth once daily CELEXA 20 MG TABS One tablet by mouth daily CITALOPRAM HYDROBROMIDE [id number] Eden Murray RECORD LABEL INTERN Estradiol-Norethin drone Acet (4 sources) Estrogen Start: 12-09-2024 End: 12-25-2024 take 1 tablet by mouth once daily Estradiol-Norethind eddie Acet (Activella) 1-0.5 mg tablet Discontinued 1 {tbl} PO daily 20 07December 09, 2024 12:00am December 25, 2024 9:24am Start: 12-09-2024 End: 12-25-2024 take 1 tablet by mouth once daily Estradiol-Norethindrone Acet (Activella) 1-0.5 mg tablet Discontinued 1 {tbl} PO daily December 09, 2024 12:00am December 25, 2024 9:24am fluconazole 150 mg oral tablet (7 sources) Azole Antifungal Start: 03-16-2017 End: 04-10-2017 FLUCONAZOLE 150 MG TABS 1 po today and repeat 3 days FLUCONAZOLE [id number] Eden Murray RECORD LABEL INTERN fluocinolone acetonide 0.1 mg/ml / hydroquinone 40 mg/ml / tretinoin 0.5 mg/ml topical cream (10 sources) Corticosteroid, Retinoid, Melanin Synthesis Inhibitor Start: 03-23-2020 End: 06-25-2020 Fluocinolone-Hydroq.-T retinoin (Tri-More) 0.01-4-0.05 % cream Discontinued 1 NMA TOPICAL AT BEDTIME 22 08March 23, 2020 12:00am June 25, 2020 3:42pm Start: 03-23-2020 End: 06-25-2020 Fluocinolone-Hydroq.-Tretino in (Tri-More) 0.01-4-0.05 % cream Discontinued 1 APPLIC TOPICAL AT BEDTIME March 23, 2020 12:00am June 25, 2020 3:42pm fluticasone propionate 0.05 mg/actuat metered dose nasal spray (10 sources) Corticosteroid Start: 06-25-2020 End: 05-31-2021 take 50 ug nasal route once daily as needed Fluticasone Propionate (Flonase Allergy Relief) 50 mcg/actuation spray,suspension Discontinued 1 NMA INTRANASAL DAILY as needed June 25, 2020 1:00am May 31, 2021 3:34pm administer into each nostril Start: 06-25-2020 End: 05-31-2021 take 1 spray(s) nasal route once daily Fluticasone Propionate (Flonase Allergy Relief) 50 mcg/actuation spray,suspension Discontinued 1 SPRAY INTRANASAL DAILY June 25, 2020 1:00am May 31, 2021 3:34pm administer into each nostril hydroCHLOROthiazide 25 mg oral tablet (20 sources) Thiazide Diuretic Start: 10-07-2021 End: 12-26-2024 take 1 tablet by mouth once daily in the morning Hydrochlorothiazide 25 mg tablet Discontinued 0 .ROUTE .COMPLEX 30 0 December 10, 2024 2:55pm December 26, 2024 4:21pm TAKE 1 TABLET BY MOUTH EVERY MORNING Start: 05-31-2021 End: 10-07-2021 take 1 tablet by mouth once daily in the morning Hydrochlorothiazide 12.5 mg tablet Discontinued 12.5 mg PO EVERY MORNING 60 2 May 31, 2021 1:00am October 07, 2021 2:04pm loratadine 10 mg oral tablet (20 sources) Start: 06-25-2020 End: 05-31-2021 take 1 tablet by mouth once daily as needed Loratadine (Claritin) 10 mg tablet Discontinued 10 mg PO DAILY as needed June 25, 2020 1:00am May 31, 2021 3:34pm Start: 05-08-2019 End: 08-15-2019 take 1 tablet by mouth once daily Loratadine (Claritin) 10 mg tablet Discontinued 10 mg PO DAILY May 08, 2019 12:00am August 15, 2019 4:16pm Methylprednisolone (10 sources) Corticosteroid Start: 11-23-2017 End: 03-14-2018 Methylprednisolone Discontin ued 0 PO per package directions November 23, 2017 4:36pm March 14, 2018 3:41pm PO PER PKG DIR Start: 11-23-2017 End: 03-14-2018 Methylprednisolone 4 mg tabl ets,dose pack Discontinued 0 PO per package directions November 23, 2017 12:00am March 14, 2018 3:41pm PO PER PKG DIR Start: 11-23-2017 End: 03-14-2018 Methylprednisolone Discontin ued 0 PO per package directions November 23, 2017 12:00am March 14, 2018 3:41pm PO PER PKG DIR [place]-3 Fatty Acids (Fish Oi l Concentrate) 1,000 mg capsule (20 sources) Start: 10-26-2020 End: 05-31-2021 Vinton-3 Fatty Acids (Fish Oi l Concentrate) 1,000 mg capsule Discontinued 2000 mg PO DAILY October 26, 2020 2:57pm May 31, 2021 3:34pm Start: 10-26-2020 End: 05-31-2021 Vinton-3 Fatty Acids (Fish Oi l Concentrate) 1,000 mg capsule Discontinued 2000 MG PO DAILY October 26, 2020 2:57pm May 31, 2021 3:34pm Start: 09-23-2020 End: 10-26-2020 take 1 capsule by mouth once daily Vinton-3 Fatty Acids (Fish Oil Concentrate) 1,000 mg capsule Discontinued 1000 MG PO DAILY September 23, 2020 4:16pm October 26, 2020 2:57pm Start: 09-23-2020 End: 10-26-2020 take 1 capsule by mouth once daily Vinton-3 Fatty Acids (Fish Oil Concentrate) 1,000 mg capsule Discontinued 1000 mg PO DAILY September 23, 2020 1:00am October 26, 2020 2:57pm Start: 09-23-2020 End: 10-26-2020 take 1 capsule by mouth once daily [place]-3 Fatty Acids (Fish Oil Concentrate) 1,000 mg capsule Discontinued 1000 MG PO DAILY September 23, 2020 1:00am October 26, 2020 2:57pm PREDNISONE (5 sources) Corticosteroid Start: 03-17-2017 PREDNISONE 5 M G (21) TBPK take as directed PREDNISONE [id number] Chetna Joshua MD Start: 03-17-2017 PREDNISONE 5 M G (21) TBPK take as directed PREDNISONE [id number] Chetna Joshua MD sertraline 25 mg oral tablet (1 source) Serotonin Reuptake Inhibitor Start: 04-10-2017 ZOLOFT 25 MG TABS half tab daily X 6 days the 1 tab daily SERTRALINE HCL [id number] Eden Murray NP triamcinolone acetonide 40 mg/ml injectable suspension (2 sources) Corticosteroid Start: 07-02-2019 End: 07-02-2019 Kenalog (triamcinolone acetonide) 40 mg/mL suspension for injection Discontinued 30 MG INTRAARTIC ONCE 0.75 July 02, 2019 9:07am July 02, 2019 9:46am Vitamin B Complex (B Complex-Vitamin B12) tablet (10 sources) Start: 03-23-2020 End: 05-31-2021 take 1 tablet by mouth once daily Vitamin B Complex (B Complex-Vitamin B12) tablet Discontinued 1 TABLET PO DAILY March 23, 2020 10:36am May 31, 2021 3:34pm Start: 03-23-2020 End: 05-31-2021 Vitamin B Complex (B Complex -Vitamin B12) tablet Discontinued 1 {tbl} PO DAILY March 23, 2020 12:00am May 31, 2021 3:34pm Start: 03-23-2020 End: 05-31-2021 take 1 tablet by mouth once daily Vitamin B Complex (B Complex-Vitamin B12) tablet Discontinued 1 TABLET PO DAILY March 23, 2020 12:00am May 31, 2021 3:34pm Problems Active Problems Problem Classification Problem Date Documented Da te Episodic/Chronic Abdominal pain (7 sources) Flank pain; Translations: [Unspecified abdominal pain] 05-01-2023 Episodic Acute bronchitis (6 sources) Acute bronchitis; Translations: [Acute bronchitis, unspecified] 08-14-2024 Episodic Allergic reactions (11 sources) Contact dermatitis; Translations: [Contact dermatitis due to plants] Onset: 03-17-2017 03-17-2017 Episodic Anxiety disorders (8 sources) Anxiety; Translations: [Anxiety disorder, unspecified] Onset: 03-13-2017 03-13-2017 Chronic Diabetes or abnormal glucose tolerance complicating ; childbirth; or the puerperium (10 sources) History of gestational diabetes mellitus; Translations: [Personal history of gestational diabetes] 05-08-2019 Episodic Essential hypertension (14 sources) Hypertensive disorder; Translations: [Essential (primary) hypertension] Chronic Hypertension complicating ; childbirth and the puerperium (10 sources) -induced hypertension; Translations: [Gestational [-induced] hypertension without significant proteinuria, unspecified trimester] 05-08-2019 Episodic Immunizations and screening for infectious disease (3 sources) Contact with or exposure to other viral diseases 05-01-2023 Episodic Malaise and fatigue (12 sources) Fatigue; Translations: [Other fatigue] Episodic Menopausal disorders (13 sources) Menopausal syndrome; Translations: [Menopausal and female climacteric states] Onset: 12-26-2024 09-19-2024 Chronic Menopausal disorders (7 sources) Postmenopausal state; Translations: [Hormone replacement therapy] Onset: 12-26-2024 12-25-2024 Episodic Nutritional deficiencies (1 source) Vitamin D deficiency, unspecified; Translations: [Vitamin D deficiency, unspecified] Onset: 11-14-2024 Chronic Other bone disease and musculoskeletal deformities (20 sources) Segmental and somatic dysfunction; Translations: [Segmental and somatic dysfunction of cervical region] Onset: 03-08-2016 11-17-2016 Episodic Other bone disease and musculoskeletal deformities (6 sources) Segmental and somatic dysfunction of cervical region; Translations: [Nonallopathic lesions, cervical region] Onset: 11-11-2024 Episodic Other bone disease and musculoskeletal deformities (6 sources) Segmental and somatic dysfunction of lumbar region; Translations: [Nonallopathic lesions, lumbar region] Onset: 11-11-2024 Episodic Other bone disease and musculoskeletal deformities (6 sources) Segmental and somatic dysfunction of pelvic region; Translations: [Nonallopathic lesions, pelvic region] Onset: 11-11-2024 Episodic Other bone disease and musculoskeletal deformities (6 sources) Segmental and somatic dysfunction of thoracic region; Translations: [Nonallopathic lesions, thoracic region] Onset: 11-11-2024 Episodic Other connective tissue disease (5 sources) Biceps tendinitis; Translations: [Bicipital tendinitis, right shoulder] 11-11-2019 Episodic Other connective tissue disease (5 sources) Bicipital tendinitis, right shoulder; Translations: [Biceps tendinitis of right upper extremity] 11-11-2019 Episodic Other ear and sense organ disorders (10 sources) Hearing disorder; Translations: [Unspecified hearing loss, unspecified ear] 05-08-2019 Chronic Other ear and sense organ disorders (8 sources) Otitis externa; Translations: [Unspecified otitis externa, left ear] 11-14-2024 Chronic Other ear and sense organ disorders (1 source) Unspecified otitis externa, left ear; Translations: [Unspecified otitis externa, left ear] Onset: 11-11-2024 Chronic Other ear and sense organ disorders (8 sources) Impacted cerumen; Translations: [Impacted cerumen, left ear] 11-14-2024 Episodic Other ear and sense organ disorders (1 source) Impacted cerumen, left ear; Translations: [Impacted cerumen, left ear] Onset: 11-11-2024 Episodic Other lower respiratory disease (5 sources) Cough; Translations: [Cough] 08-14-2024 Episodic Other nervous system disorders (16 sources) Carpal tunnel syndrome; Translations: [Carpal tunnel syndrome, unspecified upper limb] 05-31-2021 Chronic Other non-traumatic joint disorders (3 sources) Shoulder pain; Translations: [Pain in left shoulder] 05-31-2021 Episodic Other non-traumatic joint disorders (7 sources) Pain in left shoulder; Translations: [Left shoulder pain] 05-31-2021 Episodic Other non-traumatic joint disorders (7 sources) Pain in right shoulder; Translations: [Right shoulder pain] 11-27-2023 Episodic Other screening for suspected conditions (not mental disorders or infectious disease) (13 sources) Patient encounter status; Translations: [Encounter for screening for malignant neoplasm of colon] Onset: 10-02-2024 11-11-2021 Episodic Other skin disorders (10 sources) Chloasma; Translations: [Chloasma] 03-23-2020 Episodic Otitis media and related conditions (9 sources) Acute left otitis media; Translations: [Otitis media, unspecified, left ear] Onset: 11-11-2024 11-14-2024 Episodic Residual codes; unclassified (2 sources) Sleep disorder, unspecified; Translations: [Sleep disturbance, unspecified] 11-08-2023 Episodic Spondylosis; intervertebral disc disorders; other back problems (9 sources) Neck pain; Translations: [Cervicalgia] 11-17-2022 Episodic Unclassified (7 sources) Screening mammography ; Translations: [Encounter for screening mammogram for malignant neoplasm of breast] Onset: 03-13-2017 03-13-2017 Unclassified (7 sources) Gynecologic examination ; Translations: [Encounter for gynecological examination (general) (routine) without abnormal findings] Onset: 03-13-2017 03-13-2017 Unclassified (1 source) Cough, unspecified; Translations: [Cough, unspecified] Onset: 08-14-2024 Unclassified (1 source) Mass of right breast Unclassified (2 sources) N63.10 - Unspecified lump in the right breast, unspecified quadrant Urinary tract infections (7 sources) Urinary tract infectious disease; Translations: [Urinary tract infection, site not specified] 05-01-2023 Episodic Past or Other Problems Problem Classification Problem Date Documented Date Episodic/Chronic Genitourinary symptoms and ill-defined conditions (8 sources) Blood in urine; Translations: [Hematuria, unspecified] Onset: 03-13-2017 03-13-2017 Episodic Other female genital disorders (5 sources) Vaginal discharge; Translations: [Other specified noninflammatory disorders of vagina] Onset: 03-17-2017 03-17-2017 Episodic Unclassified (8 sources) uterine ablation 10-06-2022 Comment on above: 2012 Results Test Name Value Interpretation Reference Range Facility Breast imaging reportOrdered By: Brandon Rodriguez on 01-06-2025 Study report [facility] Imaging Services [address] [place], [place] [id number] SCRN MAMM (CAD)W/GRACE BILAT MR#: [id number] Acct: [id number] Name: MARIAH BECK Rep #: [id number] : 1975 F 49 From: Nehemiah Rodriguez MD PCP: Dr. Jean Keys MD Status: R EG CLI Study:SCRN MAMM (CAD)W/GRACE BILAT Date of Exa m: 01/06/25 Exam# [id number] Ordering Dr: Eden Murray RECORD LABEL INTERN RECORD LABEL INTERN-C EXAM: SCRN MAMM (CAD)W/GRACE BILAT DATE: 01/06/2025 CLINICAL HISTORY: F, Age 49 y/o , SCREENING FOR BREAST CANCER No family history. BREAST CANCER RISK ASSESSMENT: Not assessed. TECHNIQUE: Bilateral screening digital breast tomosynthesis with 2D and 3D images. Computeraided detection. COMPARISON: Prior exam(s) dated November 22, 2023.. FINDINGS: TISSUE DENSITY: The breast tissue is extremely dense which lowers the sensitivity of mammography. Bilateral Breast Mammographic Findings: No significant masses, calcifications or other abnormalities are identified. No suspicious masses, areas of developing architectural distortion, or suspicious calcifications. There has been no significant interval change. BI/SCRN MAMM (CAD)W/GRACE BILAT IMPRESSION: Stable examination. OVERALL FINAL ASSESSMENT BI-RADS 1: NEGATIVE. RECOMMEND ANNUAL MAMMOGRAPHIC SCREENING. RECOMMENDATION: Routine annual follow-up in 1 Year A letter with findings and recommendations will be mailed to the patient. Reading Location: [place] [address] CC: BREE Murray; Dr. Jean Keys MD ~ Director Learning And Development: Signed [facility] SCRN MAMM (CAD)W/GRACE BILATo n 01-06-2025 SCRN MAMM (CAD)W/GRACE BILAT [facility] Imaging Services [address] [place] [address] [id number] SCRN MAMM (CAD)W/GRACE BILAT MR#: [id number] Acct: [id number] Name: MARIAH BECK Rep #: [id number] : 1975 F 49 From: Brandon goldman MD PCP: Dr. Jean Keys MD Status: [facility] Study: SCRN MAMM (CAD)W/GRACE BILAT Date of Exam: 12/22 01/15 Exam# [id number] Ordering Dr: Eden Murray NP RECORD LABEL INTERN -C EXAM: SCRN MAMM (CAD)W/GRACE BILAT DATE: 01/06/2025 CLINICAL HISTORY: F, Age 49 y/o , SCREENING FOR BREAST CANCER No family history. BREAST CANCER RISK ASSESSMENT: Not assessed. TECHNIQUE: Bilateral screening digital breast tomosynthesis with 2D and 3D images. Computer aided detection. COMPARISON: Prior exam(s) dated November 22, 2023.. FINDINGS: TISSUE DENSITY: The breast tissue is extremely dense which lowers the sensitivity of mammography. Bilateral Breast Mammographic Findings: No significant masses, calcifications or other abnormalities are identified. No suspicious masses, areas of developing architectural distortion, or suspicious calcifications. There has been no significant interval change. BI/SCRN MAMM (CAD)W/GRACE BILAT IMPRESSION: Stable examination. OVERALL FINAL ASSESSMENT BI-RADS 1: NEGATIVE. RECOMMEND ANNUAL MAMMOGRAPHIC SCREENING. RECOMMENDATION: Routine annual follow-up in 1 Year A letter with findings and recommendations will be mailed to the patient. Reading Location: [place] [address] CC: BREE Murray; Dr. Jean Keys MD Director Learning And Development: Signed Normal [facility] Internal Medicine Office Vis iton 12-26-2024 Internal Medicine Office Visit [facility] [address] [place], [place] [address] OFFICE VISIT Date of Service: 12/26/24 MR#: [id number] Acct: [id number] Name: MARIAH BECK Rep #: [id number] : 1975 Provider: DAWOOD Pena Age/Sex: 49/F Location: [facility] Status: Signed Intake Vital Signs 11/14/24 08:48 12/25/24 09:18 12/26/24 15:53 Height 5 ft 5 in 5 ft 5 in 5 ft 5 in Weight: 183 lb BMI 30.4 BP 132/78 H Blood Pressure Location Lt brachial Position Sitting Respiration 16 Pulse 76 Pulse Source Monitor Temp 98.1 F Temp Source Temporal Pulse Oximetry (%) 98 Oxygen Delivery Method room air Intake Visit Reasons: ACUTE MED REFILL Chief Complaint: Annual Die Storage Worker Required: No Is patient in pain?: No Allergies labetalol Allergy (Severe, Verified 12/26/24 15:46) Rash Sulfa (Sulfonamide Antibiotics) Allergy (Severe, Verified 12/26/24 15:46) Rash Medications ???Medication ???Instructions ???Recorded ???Confirmed ???Type meloxicam 15 mg tablet 15 mg PO DAILY PRN pain #90 tabs 0 11/27/23 12/26/24 Rx cholecalciferol (vitamin D3) 50 50 mcg PO QDAY 11/14/24 12/26/24 H istory mcg (2,000 unit) capsule estradiol 1 mg tablet 1 mg PO DAILY #30 tabs 12/25/24 Rx progesterone micronized 100 mg 100 mg PO QHS #30 caps 12/25/24 Rx capsule (Prometrium) hydrochlorothiazid e 25 mg tablet See Rx Instructions .Route 5 12/26/24 Rx .COMPLEX #90 tabs Nurse's Note: Pt will need a new script for hctz w/ refills got a 30 day w/ no refills recently. [facility] Medical History Right shoulder pain Urinary tract infection with hematuria Flank pain Wears hearing aid Alcohol use Heartburn Non-smoker Hypertension Left shoulder pain Fatigue Hearing problem Seasonal allergies Gestational hypertension History of gestational diabetes Surgical History Hx of wisdom tooth extraction delivery delivered uterine ablation Family History Mother Alcoholism Bladder cancer Depression Colon polyps Father Diabetes Myocardial infarction Hypertension Colon polyps Grandfather Diabetes High cholesterol Grandfather Diabetes High cholesterol Grandmother Myocardial infarction High cholesterol Other Heart disease Social History adopted: No household members: family number of children: 3 current occupational status: employed current occupation: employeehealth nurse [employer] pets and animals: Yes pets and animals: cat(s) Smoking Status: Never smoker alcohol intake: current alcohol intake frequency: a few times a month substance use type: does not use caffeine: Yes (2-3) Type: coffee what type of physical activity do you participate in: aerobics and weight training frequency: 5-6 times per week seatbelt use: always do you feel safe at home: Yes additional social history: Bill- Self Employed Patient is the employee health nurse at [employer] HPI Chief Complaint: Annual Details: MARIAH BECK, is a 49 F who presents to the office today for medication refills as it had been a year since she had been seen She has been on blood pressure medications for probably 4 or 5 years now. She had been on some other meds prior but the HCTZ has been what has kept her stable. She has been checking her BP at home especially since starting the hormone replacement. She stats that she is typically in the 120s and 70/80s diastolically She does not use nicotine She does get about 2 cups of coffee per day ETOH us is rare / occasional She states that her diet tis fair to good She does get regular exercise lifting weight 2-3 times a week and does do some walking quite a bit for cardio She does see both eye doctor and dentist regularly She has a mammogram scheduled for January she had a colonoscopy a few years ago UTD with adult immunizations that she is aware of ROS Const Constitutional: No body ache, chills, excessive sweating, fatigue, fever(s), frequent falls, headache(s), snoring, weakness, sleep problems or change in appetite Eyes Eyes: No blurry vision, change in vision, eye pain or Light sensitivity ENT ENT: No abnormal hearing, ear or mastoid pain, tinnitus, nasal congestion, headache(s), neck pain or sore throat Resp Respiratory: No cough, shortness of breath, snoring or wheezing Cardio Cardiology: No chest pain at rest, chest pain with exertion, excessive sweating, shortness of breath, dyspnea on exertion, lightheadedness, orthopnea or palpitations Gastro GI: No abdominal pain, change in bowel habits, constipati (more content not included)... Normal [facility] [employer] Office Visit Reporton 12-25-2024 [employer] Office Visit Report [facility] [address], [address] [place] [address] OFFICE VISIT Date of Service: 12/25/24 MR#: [id number] Acct: [id number] Name: MARIAH BECK Rep #: [id number] : 1975 Provider: BREE ponce Age/Sex: 49/F Location: [facility] Status: Signed Intake Vital Signs 11/14/24 08:48 12/25/24 09:13 12/25/24 09:18 Height 5 ft 5 in 5 ft 5 in 5 ft 5 in Weight: 182 lb 4 oz BMI 30.3 BP 124/78 H Intake Visit Reasons: Annual ([employer]) Chief Complaint: Annual Die Storage Worker Required: No Is patient in pain?: No Allergies labetalol Allergy (Severe, Verified 12/25/24 09:12) Rash Sulfa (Sulfonamide Antibiotics) Allergy (Severe, Verified 12/25/24 09:12) Rash Medications ???Medication ???Instructions ???Recorded ???Confirmed ???Type meloxicam 15 mg tablet 15 mg PO DAILY PRN pain #90 tabs 0 11/27/23 12/25/24 Rx cholecalciferol (vitamin D3) 50 50 mcg PO QDAY 11/14/24 12/25/24 H istory mcg (2,000 unit) capsule hydrochlorothiazid e 25 mg tablet See Rx Instructions .Route 5 12/25/24 Rx .COMPLEX #30 tabs estradiol 1 mg tablet 1 mg PO DAILY #30 tabs 12/25/24 Rx progesterone micronized 100 mg 100 mg PO QHS #30 caps 12/25/24 Rx capsule (Prometrium) Is last menstrual period known: No Post menopausal: No Patient : No : No Nurse's Note: Had an ablation several years ago, no menses since then. [facility] Medical History Right shoulder pain Urinary tract infection with hematuria Flank pain Wears hearing aid Alcohol use Heartburn Non-smoker Hypertension Left shoulder pain Fatigue Hearing problem Seasonal allergies Gestational hypertension History of gestational diabetes Surgical History Hx of wisdom tooth extraction delivery delivered uterine ablation Family History Mother Alcoholism Bladder cancer Depression Colon polyps Father Diabetes Myocardial infarction Hypertension Colon polyps Grandfather Diabetes High cholesterol Grandfather Diabetes High cholesterol Grandmother Myocardial infarction High cholesterol Other Heart disease Social History adopted: No household members: family number of children: 3 current occupational status: employed current occupation: employeehealth nurse [employer] pets and animals: Yes pets and animals: cat(s) Smoking Status: Never smoker alcohol intake: current alcohol intake frequency: a few times a month substance use type: does not use caffeine: Yes (2-3) Type: coffee what type of physical activity do you participate in: aerobics and weight training frequency: 5-6 times per week seatbelt use: always do you feel safe at home: Yes additional social history: Bill- Self Employed Patient is the employee health nurse at [employer] History 4 Elective abortions Hx Para 3 Spontaneous abortions Hx # Term Pregnancies Ectopic pregnancies Hx # Pregnancies Multiple births # of living children Past Pregnancies Del. Date Name GA/Weeks Outcome Route Bth Weight Gen Labor Lgth Anesthesia Del Locatn Provider FOB Unknown 2003 Yusef Unknown 2005 Deandre Unknown 2008 Genaro HPI Encounter for routine gynecological examination Details: MARIAH BECK is a 49 year old who presents for annual exam. Had started estrogen patch and oral prometrium in October. States no hotflashes and was feeling/sleeping better but had skin irritation from patch. Was changed to activella about 2 weeks ago and not working as well with disruptive sleep, irritability and brain fog. Her BP has been normal. No bleeding but has had ablation Last PAP: 2020 History of abnormal PAP: no Last mammogram: 11/2023 History of abnormal mammogram: no Colon cancer screenin Other preventative health care screenings: Ludmila Female Reproductive History Questions: metorrhagia: No, sexually active: Yes, dyspareunia: No and PCB: No Menopausal Treatment: Yes HRT ROS Const Constitutional: Denies fatigue, weight gain or weight loss Cardio Card: Denies chest pain Resp Resp: Denies cough or dyspnea on exertion GI GI: Denies abdominal pain, bloating, change in stool character, constipation or vomiting : Reports as per HPI; Denies difficulty voiding, pelvic pain, urinary frequency, urinary incontinence, urinary urgency, vaginal discharge or vaginal pruritus Exam Const General: cooperative, healthy appearing, no acute distress and well developed Orientation: alert, oriented to person and oriented to place [facility] Head: no (more content not included)... Normal [facility] [employer] Office Visit Reporton 11-14-2024 [employer] Office Visit Report [facility] [address], [address] [place] [address] OFFICE VISIT Date of Service: 11/14/24 MR#: [id number] Acct: [id number] Name: MARIAH BECK Rep #: [id number] : 1975 Provider: BREE ponce Age/Sex: 49/F Location: [facility] Status: Signed Intake Vital Signs 08/14/24 12:11 11/11/24 16:03 11/14/24 08:43 11/14/24 08:48 Height 5 ft 5 in 5 ft 5 in 5 ft 5 in 5 ft 5 in Weight: 181 lb 8 oz BMI 30.2 BP 122/83 H Intake Visit Reasons: Hormone Replacement Therapy *co-pay $20 Chief Complaint: HRT Die Storage Worker Required: No Is patient in pain?: No Allergies labetalol Allergy (Severe, Verified 11/14/24 08:41) Rash Sulfa (Sulfonamide Antibiotics) Allergy (Severe, Verified 11/14/24 08:41) Rash Medications ???Medication ???Instructions ???Recorded ???Confirmed ???Type hydrochlorothiazid e 25 mg tablet See Rx Instructions .Route 4 11/14/24 Rx .COMPLEX #90 tabs meloxicam 15 mg tablet 15 mg PO DAILY PRN pain #90 tabs 0 11/27/23 11/14/24 Rx amoxicillin 875 mg-potassium 1 tab PO Q12H #14 tabs 11/11/24 Rx clavulanate 125 mg tablet ciprofloxacin 0.2 %-hydrocortisone 3 drp otic (ear) BID 7 days #10 mL 11/11/24 11/14/24 Rx 1 % ear drops,suspension (Cipro HC) cholecalciferol (vitamin D3) 50 50 mcg PO QDAY 11/14/24 11/14/24 H istory mcg (2,000 unit) capsule estradiol 0.05 mg/24 hr semiweekly 1 patch transdermal 2XW #8 ea 11/14/24 Rx transdermal patch progesterone micronized 100 mg 100 mg PO QHS #30 caps 11/14/24 Rx capsule (Prometrium) Is last menstrual period known: No Post menopausal: No Patient : No : No Nurse's Note: No menses d/t ablation. PFSH Medical History Right shoulder pain Urinary tract infection with hematuria Flank pain Wears hearing aid Alcohol use Heartburn Non-smoker Hypertension Left shoulder pain Fatigue Hearing problem Seasonal allergies Gestational hypertension History of gestational diabetes Surgical History Hx of wisdom tooth extraction delivery delivered uterine ablation Family History Mother Alcoholism Bladder cancer Depression Colon polyps Father Diabetes Myocardial infarction Hypertension Colon polyps Grandfather Diabetes High cholesterol Grandfather Diabetes High cholesterol Grandmother Myocardial infarction High cholesterol Other Heart disease Social History adopted: No household members: family number of children: 3 current occupational status: employed current occupation: employeehealth nurse [employer] pets and animals: Yes pets and animals: cat(s) Smoking Status: Never smoker alcohol intake: current alcohol intake frequency: a few times a month substance use type: does not use caffeine: Yes (2-3) Type: coffee what type of physical activity do you participate in: aerobics and weight training frequency: 5-6 times per week seatbelt use: always do you feel safe at home: Yes additional social history: Bill- Self Employed Patient is the employee health nurse at [employer] HPI Hormone Replacement Therapy *co-pay $20 Details: MARIAH BECK is a 49 year old who presents for discussion of hormone replacement. Sleep disturbance due to night sweats with some palpitations. No bleeding but had ablation. Noting now brain fog, irritability. Anxious to start hormone replacement. History 4 Elective abortions Hx Para 3 Spontaneous abortions Hx # Term Pregnancies Ectopic pregnancies Hx # Pregnancies Multiple births # of living children Past Pregnancies Del. Date Name GA/Weeks Outcome Route Bth Weight Infant Gen Labor Lgth Anesthesia Del Locatn Provider FOB Unknown 2003 Yusef Unknown 2005 Deandre Unknown 2008 Genaro ROS Const Constitutional: Reports as per HPI : Reports as per HPI Psych Psych: Reports as per HPI Exam Const General: cooperative and no acute distress Orientation: oriented x3 HENMT Head: normal to inspection and normocephalic Eyes General: appearance normal, both eyes and all related structures Neck Neck: normal visual inspection Resp Effort Inspection: normal respiratory effort Neuro Cognition: normal cognition Speech: speech normal Psych Appearance: grossly normal Mood: congruent mood Affect: normal affect Speech and Movement: speech and movement normal Attitude: cooperative Judgment: judgment good Coding Level of Care Code Off vis,est,level 3 Diagnoses Climacteric N95.1 Assessment (more content not included)... Normal [facility] Chiropractic Reporton 2024 Chiropractic Report [facility] [address] [place] [address] OFFICE VISIT Date of Service: 11/11/24 MR#: [id number] Acct: [id number] Name: MARIAH BECK Rep #: [id number] : 1975 Provider: LILIA Michael Age/Sex: 49/F Location: [facility] Status: Signed Intake Vital Signs 08/14/24 12:11 11/11/24 14:27 11/11/24 16:03 Height 5 ft 5 in 5 ft 5 in 5 ft 5 in Weight: 185 lb BMI 30.7 BP 126/82 H Intake Visit Reasons: REEVAL Chief Complaint: neck and low back discomfort Allergies labetalol Allergy (Severe, Verified 11/11/24 16:04) Rash Sulfa (Sulfonamide Antibiotics) Allergy (Severe, Verified 11/11/24 16:04) Rash adhesive Adverse Reaction (Verified 11/11/24 16:04) Rash Medications ???Medication ???Instructions ???Recorded ???Confirmed ???Type hydrochlorothiazid e 25 mg tablet See Rx Instructions .Route 4 11/11/24 Rx .COMPLEX #90 tabs meloxicam 15 mg tablet 15 mg PO DAILY PRN pain #90 tabs 0 11/27/23 11/11/24 Rx benzonatate 100 mg capsule 100 mg PO BID-TID PRN cough #15 11/11/24 Rx caps amoxicillin 875 mg-potassium 1 tab PO Q12H #14 tabs 11/11/24 Rx clavulanate 125 mg tablet ciprofloxacin 0.2 %-hydrocortisone 3 drp otic (ear) BID 7 days #10 mL 11/11/24 11/11/24 Rx 1 % ear drops,suspension (Cipro HC) PFSH Medical History Right shoulder pain Contact with or exposure to other viral diseases Urinary tract infection with hematuria Flank pain Wears hearing aid Alcohol use Heartburn Non-smoker Hypertension Health care maintenance Colon cancer screening Left shoulder pain Fatigue Hearing problem Carpal tunnel syndrome Seasonal allergies Gestational hypertension History of gestational diabetes Surgical History Hx of wisdom tooth extraction delivery delivered uterine ablation Family History Mother Alcoholism Bladder cancer Depression Colon polyps Father Diabetes Myocardial infarction Hypertension Colon polyps Grandfather Diabetes High cholesterol Grandfather Diabetes High cholesterol Grandmother Myocardial infarction High cholesterol Other Heart disease Social History adopted: No household members: family number of children: 3 current occupational status: employed current occupation: employeehealth nurse [employer] pets and animals: Yes pets and animals: cat(s) Smoking Status: Never smoker alcohol intake: current alcohol intake frequency: a few times a month substance use type: does not use caffeine: Yes (2-3) Type: coffee what type of physical activity do you participate in: aerobics and weight training frequency: 5-6 times per week seatbelt use: always do you feel safe at home: Yes additional social history: Bill- Self Employed Patient is the employee health nurse at [employer] HPI REEVAL Chief Complaint: neck discomfort Visit Number: 1 Details: Mariah is a 49 y/o female here for a re-evaluation of neck/back discomfort. Pt. advises she has been experiencing some neck and upper back tension. She denies recent MOON's. She would like her low back checked for alignment. She denies new injury, numbness tingling or radiculopathy. She stretches and exercises at home to stay flexible and relieve tension. She states chiropractic adjustments have been helpful in the past. Location: neck/back Duration: intermittent Aggravating or associated factors: computer work, stress Relieving factors: chiro Pain Quality: aching and dull Exam Musc General: Yes normal posture, normal gait, joint tenderness and decreased range of motion Cervical Spine: Yes normal cervical lordosis, Yes cervical muscular tenderness bilateral diffuse , Yes cervical spasm bilateral lower trapezius and paracervical muscles, bilateral upper intrinsics and Yes misalignment misalignment: C1, C4, C5 and C6 Thoracic/Lumber: Yes thoracic and lumbar spine normal to inspection, Yes paraspinal tenderness bilaterally in the upper thoracic, in the mid thoracic and in the lower lumbar, Yes thoraco-lumbar spasm on the right greater than left (Trap, Levator, glute) and Yes misalignment T2, T3, T6, T7, L3, L4, L5 and RIL Sacroiliac joints: bilaterally tender to palpation Office Procedures Procedures - Chiropractic Procedures Manipulation: Cervical C1 and C5, Lumbar L3, Thoracic T3 and Pelvis RIL Manipulation: 3-4 regions Traction, Mechanical: Yes Patient Response: positive Assessment and Plan Assessment and Plan (1) Segmental and somatic dysfunction of lumbar region: Status: Acute (2) Segmental and somatic dysfunction of thoracic (more content not included)... Normal [facility] Office Visit Reporton 2024 Office Visit Report [facility] [address] [place] [address] OFFICE VISIT Date of Service: 11/11/24 MR#: [id number] Acct: [id number] Patient: MARIAH BECK Rep #: [id number] : 1975 Provider: DAWODO Rajan Age/Sex: 49/F Location: [facility] Status: Signed Intake Vital Signs 08/14/24 12:11 11/11/24 14:27 Height 1.65 m 1.65 m Weight: 82.1 kg 83.915 kg BMI 30.1 30.7 BP 126/92 H 153/83 H Blood Pressure Location Rt brachial Lt brachial Position Sitting Sitting Pulse 112 H 81 Pulse Source Monitor Monitor Temp 98.7 F 98.5 F Temp Source Temporal Temporal Pulse Oximetry (%) 99 97 Intake Visit Reasons: EARACHE Chief Complaint: left ear pain Allergies labetalol Allergy (Severe, Verified 11/11/24 14:29) Rash Sulfa (Sulfonamide Antibiotics) Allergy (Severe, Verified 11/11/24 14:29) Rash adhesive Adverse Reaction (Verified 11/11/24 14:29) Rash Medications ???Medication ???Instructions ???Recorded ???Confirmed ???Type hydrochlorothiazid e 25 mg tablet See Rx Instructions .Route 4 11/11/24 Rx .COMPLEX #90 tabs meloxicam 15 mg tablet 15 mg PO DAILY PRN pain #90 tabs 0 11/27/23 11/11/24 Rx benzonatate 100 mg capsule 100 mg PO BID-TID PRN cough #15 11/11/24 Rx caps amoxicillin 875 mg-potassium 1 tab PO Q12H #14 tabs 11/11/24 Rx clavulanate 125 mg tablet ciprofloxacin 0.2 %-hydrocortisone 3 drp otic (ear) BID 7 days #10 mL 11/11/24 11/11/24 Rx 1 % ear drops,suspension (Cipro HC) [facility] Medical History Right shoulder pain Contact with or exposure to other viral diseases Urinary tract infection with hematuria Flank pain Wears hearing aid Alcohol use Heartburn Non-smoker Hypertension Health care maintenance Colon cancer screening Left shoulder pain Fatigue Hearing problem Carpal tunnel syndrome Seasonal allergies Gestational hypertension History of gestational diabetes Surgical History Hx of wisdom tooth extraction delivery delivered uterine ablation Family History Mother Alcoholism Bladder cancer Depression Colon polyps Father Diabetes Myocardial infarction Hypertension Colon polyps Grandfather Diabetes High cholesterol Grandfather Diabetes High cholesterol Grandmother Myocardial infarction High cholesterol Other Heart disease Social History adopted: No household members: family number of children: 3 current occupational status: employed current occupation: employeehealth nurse [employer] pets and animals: Yes pets and animals: cat(s) Smoking Status: Never smoker alcohol intake: current alcohol intake frequency: a few times a month substance use type: does not use caffeine: Yes (2-3) Type: coffee what type of physical activity do you participate in: aerobics and weight training frequency: 5-6 times per week seatbelt use: always do you feel safe at home: Yes additional social history: Bill- Self Employed Patient is the employee health nurse at [employer] HPI Chief Complaint: left ear pain Details: MARIAH BECK, is a 49 F who presents to the office today for left ear pain. Pt has had this about 4 days. It got worse over the weekend. Right side is unaffected. No dizziness or ringing. She does wear hearing aids. ROS Const Constitutional: No chills, fatigue or fever(s) ENT ENT: Positive for ear or mastoid pain; No tinnitus, dizziness/vertigo, nasal congestion, nasal discharge or sore throat Resp Respiratory: No cough Gastro GI: No diarrhea, nausea/dyspepsia or vomiting Endo Endocrine: No fatigue Exam Const General: cooperative, healthy appearing, comfortable, no acute distress, well developed and well groomed Nutritional Appearance: average body habitus and well nourished Orientation: alert, awake and oriented x3 HENMT Head: normocephalic and atraumatic Ears: TM abnormal (L only) bulging, wth effusion, erythematous, obstructed by cerumen (light yellow (cleared)) and other (mild inflammation of canal) Resp Effort Inspection: normal respiratory effort, able to speak in complete sentences, symmetric chest movement and no cough Coding Level of Care Code Off vis,est,level 3 Diagnoses Left acute otitis media H66.92 Left ear impacted cerumen H61.22 Left otitis externa H60.92 Assessment and Plan Assessment and Plan (1) Left acute otitis media: Status: Acute Plan: L AOM - amox/clav x 7 days L AOE - ciprohc (pharmacy called - not available, changed to cipro dex) Impacted cerumen - successfully cleared with irrigation. (2) Left ear impacted cerumen: Status: Acute (3) Left otitis externa (more content not included)... Normal [facility] Testosterone, Total / Freeon 09-30-2024 TESTOSTER,FREE TNP Normal . [facility] Comment on above: Order Comment: N Result Comment: Unab le to calculate result since non-numeric result obtained for component test. Performed By: #### L 3100.5310 ####[facility] [id number] [place], [place], [id number] TESTOSTER,TOTAL 22 ng/dL Normal 4-50 [facility] Comment on above: Order Comment: N Performed By: #### L 3100.5310 ####[facility] [address] [place], [place], [id number] TESTOSTERONE,%F TNP Normal . [facility] Comment on above: Order Comment: N Result Comment: Test not performed. Insufficient specimen to perform or complete analysis. CONTACTED DOMINIQUE Ayoub AT YOUR FACILITY ON 09-30-2024 Performed By: #### L 3100.5310 ####[facility] [address] [place], [place], [id number] Absolute lymphocyte countOrd ered By: HEALTH ASSESSMENT on 09-23-2024 Lymphocytes Auto (Unsp spec) [#/Vol] 2.53 10*3/uL 0.83-4.51 [facility] Absolute neutrophil countOrd ered By: HEALTH ASSESSMENT on 09-23-2024 Neutrophils (Bld) [#/Vol] 2.8 10*3/uL 2.0-7.7 [facility] Absolute nucleated red blood cell countOrdered By: HEALTH ASSESSMENT on 09-23-2024 Nucleated RBC (Bld) [#/Vol] 0.00 10*3/uL 0-5 [facility] BUN/creatinine ratioOrdered By: HEALTH ASSESSMENT on 09-23-2024 Urea nitrogen/Creatinine [Mass ratio] 20.3 mg/mg High 10-20 [facility] Band form neutrophils/100 WB C (Bld)Ordered By: HEALTH ASSESSMENT on 09-23-2024 Neutrophils/100 WBC (Bld) 46.9 % Low 47-70 [facility] Bilirubin directOrdered By: HEALTH ASSESSMENT on 09-23-2024 Bilirubin.direct [Mass/Vol] 0.14 mg/dL 0.00-0.30 [facility] Bilirubin, totalOrdered By: HEALTH ASSESSMENT on 09-23-2024 Bilirubin [Mass/Vol] 0.39 mg/dL 0.00-1.30 [facility] Blood band neutrophil count as percentage of total leukocytesOrdered By: HEALTH ASSESSMENT on 09-23-2024 Band form neutrophils/100 WBC (Bld) 46.9 % Low 47-70 [facility] CBC, Employeeon 09-23-2024 Absolute Lymph 2.53 X10 3/uL Normal 0.83-4.51 [facility] Comment on above: Order Comment: UA Performed By: #### L 400.0100, L100.0200, L500.2900 ####[facility] [address] [place], [place], [id number] Absolute Neut 2.8 X10 3/uL Normal 2.0-7.7 [facility] Comment on above: Order Comment: UA Performed By: #### L 400.0100, L100.0200, L500.2900 ####[facility] [address] [place], [address] Basophils/100 WBC (Bld) 0.7 % Normal 0-1 [facility] Comment on above: Order Comment: UA Performed By: #### L 400.0100, L100.0200, L500.2900 ####[facility] [address] [place], [address] Eosinophils/100 WBC (Bld) 2.2 % Normal 0-5 [facility] Comment on above: Order Comment: UA Performed By: #### L 400.0100, L100.0200, L500.2900 ####[facility] [address] [place], [address] Erythrocyte distribution width (RBC) [Ratio] 12.5 % Normal 11.6-14.6 [facility] Comment on above: Order Comment: UA Performed By: #### L 400.0100, L100.0200, L500.2900 ####[facility] [address] [place], [address] Hematocrit (Bld) [Volume fraction] 40.7 % Normal 37-47 [facility] Comment on above: Order Comment: UA Performed By: #### L 400.0100, L100.0200, L500.2900 ####[facility] [address] [place], [address] Hemoglobin (Bld) [Mass/Vol] 14.2 g/dL Normal 12.0-15.0 [facility] Comment on above: Order Comment: UA Performed By: #### L 400.0100, L100.0200, L500.2900 ####[facility] [address] [place], [address] Lymphocytes/100 WBC (Bld) 43.2 % High 19-41 [facility] Comment on above: Order Comment: UA Performed By: #### L 400.0100, L100.0200, L500.2900 ####[facility] [address] [place], [address] MCH (RBC) [Entitic mass] 30.9 pg Normal 27.0-32.0 [facility] Comment on above: Order Comment: UA Performed By: #### L 400.0100, L100.0200, L500.2900 ####[facility] [address] [place], [address] MCHC (RBC) [Mass/Vol] 34.9 g/dL Normal 32-36 [facility] Comment on above: Order Comment: UA Performed By: #### L 400.0100, L100.0200, L500.2900 ####[facility] [address] [place], [address] MCV (RBC) [Entitic vol] 88.5 fL Normal 81-99 [facility] Comment on above: Order Comment: UA Performed By: #### L 400.0100, L100.0200, L500.2900 ####[facility] [address] [place], [address] Monocytes/100 WBC (Bld) 6.8 % Normal 0-10 [facility] Comment on above: Order Comment: UA Performed By: #### L 400.0100, L100.0200, L500.2900 ####[facility] [address] [place], [address] Neutrophils/100 WBC (Bld) 46.9 % Low 47-70 [facility] Comment on above: Order Comment: UA Performed By: #### L 400.0100, L100.0200, L500.2900 ####[facility] [address] [place], [address] NRBC # 0.00 10 3/uL Normal 0-5 [facility] Comment on above: Order Comment: UA Performed By: #### L 400.0100, L100.0200, L500.2900 ####[facility] [address] [place], [address] Nucleated RBC (Bld) [#/Vol] 0 10*3/uL Normal 0-5 [facility] Comment on above: Order Comment: UA Performed By: #### L 400.0100, L100.0200, L500.2900 ####[facility] [address] [place], [address] Platelet mean volume (Bld) [Entitic vol] 8.7 fL Normal 6.2-12.0 [facility] Comment on above: Order Comment: UA Performed By: #### L 400.0100, L100.0200, L500.2900 ####[facility] [address] [place], [address] Platelets (Bld) [#/Vol] 391 10*3/uL Normal 150-450 [facility] Comment on above: Order Comment: UA Performed By: #### L 400.0100, L100.0200, L500.2900 ####[facility] [address] [place], [address] RBC (Bld) [#/Vol] 4.60 10*6/uL Normal 4.2-5.4 [facility] Comment on above: Order Comment: UA Performed By: #### L 400.0100, L100.0200, L500.2900 ####[facility] [address] [place], [address] RDW SD 40.6 fl Normal 35.1-43.9 [facility] Comment on above: Order Comment: UA Performed By: #### L 400.0100, L100.0200, L500.2900 ####[facility] [address] [place], [address] WBC (Bld) [#/Vol] 5.9 10*3/uL Normal 4.4-11.0 [facility] Comment on above: Order Comment: UA Performed By: #### L 400.0100, L100.0200, L500.2900 ####[facility] [address] [place], [address] Calculated very low density lipoprotein (VLDL) cholesterol measurementOrdered By: Leyla Allen on 09-23-2024 Calculated very low density lipoprotein (VLDL) cholesterol measurement 21 mg/dL 5-40 [facility] VLDL Cholesterol 21 mg/dL -40 [facility] Calculated very low density lipoprotein (VLDL) cholesterol measurementOrdered By: HEALTH ASSESSMENT on 09-23-2024 Calculated very low density lipoprotein (VLDL) cholesterol measurement 21 mg/dL -40 [facility] VLDL Cholesterol 21 mg/dL -40 [facility] Carbon dioxide measurementOr dered By: HEALTH ASSESSMENT on 09-23-2024 CO2 [Moles/Vol] 22.0 mmol/L 22.0-29.0 [facility] Chloride measurementOrdered By: HEALTH ASSESSMENT on 09-23-2024 Chloride [Moles/Vol] 102 mmol/L 96-108 [facility] E2 post dose follitropin [Ma ss/Vol]Ordered By: Leyla Allen on 09-23-2024 Estradiol (E2) Level 81.0 pg/mL [facility] Comment on above: FEMALES ADULT FEMALE : Premenopausal: 15-350 pg/mL(E2 levels vary widely through the menstrual cycle) Postmenopausal: <10 pg/mL GUILLE STAGES MEAN AGE REFERENCE RANGES Stage I(>14 days and prepubertal) 7.1 years Undetectable-20 pg/mLL Stage II 10.5 years Undetectable-24 pg/mL Stage III 11.6 years Undetectable-60 pg/mL Stage IV 12.3 years 15-85 pg/mL Stage V 14.5 years 15-350 pg/mL Puberty onset (transition from Guille stage I to Guille stage II) occurs for girls at a median age of 10.5 (/- 2) years. There is evidence that it may occur up to 1 year earlier in obese girls and in girls.Progression through Guille stages is variable. Guille stage V (adult) should be reached by age 18. Employee Profileon Calcium [Mass/Vol] 9.2 mg/dL Normal 7.6-11.0 [facility] Comment on above: Order Comment: UA Performed By: #### L 400.0100, L100.0200, L500.2900 ####[facility] [address] [place], [address] Cholesterol in LDL [Mass/Vol] 120 mg/dL Normal 0-130 [facility] Comment on above: Order Comment: UA Performed By: #### L 400.0100, L100.0200, L500.2900 ####[facility] [address] [place], [address] Erythrocyte distribution wid th ratioOrdered By: HEALTH ASSESSMENT on 09-23-2024 Erythrocyte distribution width (RBC) [Ratio] 12.5 % 11.6-14.6 [facility] Erythrocyte distribution wid th standard deviationOrdered By: HEALTH ASSESSMENT on 09-23-2024 Erythrocyte distribution width (RBC) [Entitic vol] 40.6 fL 35.1-43.9 [facility] Erythrocyte distribution width (RBC) [Ratio] 40.6 fl 35.1-43.9 [facility] Estradiolon 09-23-2024 ESTRADIOL 81.0 pg/mL Normal [facility] Comment on above: Result Comment: FEMA LES ADULT FEMALE: Premenopausal: 15-350 pg/mL(E2 levels vary widely through the menstrual cycle) Postmenopausal: <10 pg/mL GUILLE STAGES MEAN AGE REFERENCE RANGES Stage I(>14 days and prepubertal) 7.1 years Undetectable-20 pg/mLL Stage II 10.5 years Undetectable-24 pg/mL Stage III 11.6 years Undetectable-60 pg/mL Stage IV 12.3 years 15-85 pg/mL Stage V 14.5 years 15-350 pg/mL Puberty onset (transition from Guille stage I to Guille stage II) occurs for girls at a median age of 10.5 (/- 2) years. There is evidence that it may occur up to 1 year earlier in obese girls and in girls. Progression through Guille stages is variable. Guille stage V (adult) should be reached by age 18. Performed By: #### L 501.0100, L500.4100, L506.1001, L501.9520, L3100.5125, L3300.1750 #### [facility] [address] [place], [address] Follicle Stimulating Hormone on 09-23-2024 FSH 18.6 mIU/mL Normal [facility] Comment on above: Result Comment: FEMA LE: Follicular: 1.4 - 18.1 mIU/mL Midcycle: 3.4 - 33.4 mIU/mL Luteal: 1.5 - 9.1 mIU/mL Post Menopause: 23.0 - 116.3 mIU/mL MALE: 1.4 - 18.1 mIU/mL NORMAL REFERENCE RANGES FEMALE FOLLICULAR 2.3 - 12.6 mIU/mL MID-CYCLE PEAK 5.2 - 17.5 mIU/mL LUTEAL 1.7 - 12.9 mIU/mL POST-MENOPAUSAL ON MHT 5.9 - 72.8 mIU/mL NOT ON MHT 12.7 - 132.2 mlU/mL MALE 0.7 - 10.8 mIU/mL Performed By: #### L 501.0100, L500.4100, L506.1001, L501.9520, L3100.5125, L3300.1750 #### [facility] [address] [place], [address] Follicle stimulating hormone (FSH) levelOrdered By: Leyla Allen on 09-23-2024 Follicle Stimulating Hormone 18.6 mIU/mL [facility] Comment on above: FEMALE:Follicular: 1 .4 - 18.1 mIU/mLMidcycle: 3.4 - 33.4 mIU/mLLuteal: 1.5 - 9.1 mIU/mLPost Menopause: 23.0 - 116.3 mIU/mLMALE: 1.4 - 18.1 mIU/mL NORMAL REFERENCE RANGES FEMALE FOLLICULAR 2.3 - 12.6 mIU/mL MID-CYCLE PEAK 5.2 - 17.5 mIU/mL LUTEAL 1.7 - 12.9 mIU/mL POST-MENOPAUSAL ON MHT 5.9 - 72.8 mIU/mL NOT ON MHT 12.7 - 132.2 mlU/mL MALE 0.7 - 10.8 mIU/mL Free testosterone percentage Ordered By: Leyla Allen on 09-23-2024 Testosterone Free/Testosterone.total [Mass fraction] TNP [facility] Comment on above: Test not performedTe st not performed. Insufficient specimen to perform orcomplete analysis.CONTACTED DOMINIQUE Ayoub AT YOUR FACILITY ON 09-30-2024 GFR/1.73 sq M.predicted andres g non-blacks MDRD (S/P/Bld) [Vol rate/Area]Ordered By: HEALTH ASSESSMENT on 09-23-2024 Estimated GFR (MDRD) Non-Af Amer 87 >60 [facility] Comment on above: mL/min/1.73m2 CKD-EP I Creatinine Equation (2020) Glomerular filtration rate ( GFR) estimation/1.73 sq m using serum, plasma, or whole bOrdered By: HEALTH ASSESSMENT on 09-23-2024 GFR/1.73 sq M.predicted among non-blacks MDRD (S/P/Bld) [Vol rate/Area] 87 mL/min/{1.73_m2} >60 [facility] Comment on above: mL/min/1.73m2 CKD-EP I Creatinine Equation (2020) Glucoseon 09-23-2024 Glucose [Mass/Vol] 96 mg/dL Normal 70-99 [facility] Comment on above: Performed By: #### L 501.0100, L500.4100, L506.1001, L501.9520, L3100.5125, L3300.1750 #### [facility] [address] [facility] [place], [address] Hematocrit Auto (Bld) [Volum e fraction]Ordered By: HEALTH ASSESSMENT on 09-23-2024 Hematocrit (Bld) [Volume fraction] 40.7 % 37-47 [facility] Hemoglobin measurementOrdere d By: HEALTH ASSESSMENT on 09-23-2024 Hemoglobin (Bld) [Mass/Vol] 14.2 g/dL 12.0-15.0 [facility] L506.1001on 09-23-2024 Vitamin D 25-OH 27.8 ng/mL Low 30-100 [facility] Comment on above: Result Comment: Sammie min D Status Deficiency: <20 ng/mL (50nmol/L) Insufficiency: 20-30 ng/mL (50-75 nmol/L) Sufficiency: 30-100 ng/mL (75-250 nmol/L) Toxicity: >100 ng/mL (>250 nmol/L) Performed By: #### L 501.0100, L500.4100, L506.1001, L501.9520, L3100.5125, L3300.1750 #### [facility] [address] [place], [place], [id number] LDL calc ser/plasOrdered By: Leyla Allen on 09-23-2024 Cholesterol in LDL [Mass/Vol] 118 mg/dL [facility] Comment on above: Fyvasmhhpn=788-719 m g/dL & Higher Hfmf=998 mg/dL or greater LDL Cholesterol, Calculated 118 mg/dL [facility] Comment on above: Yarzjylort=562-339 m g/dL & Higher Pbkq=916 mg/dL or greater Laboratory - Chemistry and C hemistry - challengeOrdered By: HEALTH ASSESSMENT on 09-23-2024 AST [Catalytic activity/Vol] 27 U/L <32 [facility] Lactate dehydrogenase (LDH) measurementOrdered By: HEALTH ASSESSMENT on 09-23-2024 LDH [Catalytic activity/Vol] 239 U/L 84-246 [facility] Lipid Profileon 09-23-2024 CHOL:HDL 4.22 Normal [facility] Comment on above: Performed By: #### L 501.0100, L500.4100, L506.1001, L501.9520, L3100.5125, L3300.1750 #### [facility] [address] [place], [place], [id number] Cholesterol [Mass/Vol] 183 mg/dL Normal <=200 [facility] Comment on above: Result Comment: Chol esterol level, Desirable <200 mg/dL Borderline high cholesterol 200-239 mg/dL High cholesterol >=240 mg/dL Recommendations of the NCEP Adult Treatment Panel for the following risk-cutoff thresholds for the [place] population. Performed By: #### L 501.0100, L500.4100, L506.1001, L501.9520, L3100.5125, L3300.1750 #### [facility] [address] [place], [address] Cholesterol in HDL [Mass/Vol] 43 mg/dL Normal [facility] Comment on above: Result Comment: Helen onal Cholesterol Education Program (NCEP) guidelines: <40 mg/dL: Low HDL-cholesterol (major risk factor for CHD) >= 60 mg/dL: High HDL-cholesterol (negative risk factor for CHD) HDL-cholesterol is affected by a number of factors, e.g. smoking, exercise, hormones, sex and age. Performed By: #### L 501.0100, L500.4100, L506.1001, L501.9520, L3100.5125, L3300.1750 #### [facility] [address] [place], [address] Cholesterol in LDL [Mass/Vol] 118 mg/dL Normal [facility] Comment on above: Result Comment: Bord tvnigo=888-626 mg/dL Higher Qoab=166 mg/dL or greater Performed By: #### L 501.0100, L500.4100, L506.1001, L501.9520, L3100.5125, L3300.1750 #### [facility] [address] [place], [address] Cholesterol in VLDL [Mass/Vol] 21 mg/dL Normal 5-40 [facility] Comment on above: Performed By: #### L 501.0100, L500.4100, L506.1001, L501.9520, L3100.5125, L3300.1750 #### [facility] [address] [place], [address] Triglyceride [Mass/Vol] 107 mg/dL Normal [facility] Comment on above: Result Comment: The drugs N-Acetylcysteine and Metamizole may falsely depress this assay. Normal range: <150 mg/dL Borderline High: 150-199 mg/dL High: 200-499 mg/dL Very High: >500 mg/dL Performed By: #### L 501.0100, L500.4100, L506.1001, L501.9520, L3100.5125, L3300.1750 #### [facility] [address] [place], [address] Low density lipoprotein (LDL ) cholesterol measurementOrdered By: HEALTH ASSESSMENT on 09-23-2024 Cholesterol in LDL [Mass/Vol] 120 mg/dL 0-130 [facility] Lymphocytes Auto (Unsp spec) [#/Vol]Ordered By: HEALTH ASSESSMENT on 09-23-2024 Lymphocytes (Bld) [#/Vol] 2.53 10*3/uL 0.83-4.51 [facility] MCV (mean corpuscular volume ) determinationOrdered By: HEALTH ASSESSMENT on 09-23-2024 MCV (RBC) [Entitic vol] 88.5 fL 81-99 [facility] Mean corpuscular hemoglobin (MCH) determinationOrdered By: HEALTH ASSESSMENT on 09-23-2024 MCH (RBC) [Entitic mass] 30.9 pg 27.0-32.0 [facility] Mean corpuscular hemoglobin concentration (MCHC) determinationOrdered By: HEALTH ASSESSMENT on 09-23-2024 MCHC (RBC) [Mass/Vol] 34.9 g/dL 32-36 [facility] Mean platelet volume determi nationOrdered By: HEALTH ASSESSMENT on 09-23-2024 Platelet mean volume (Bld) [Entitic vol] 8.7 fL 6.2-12.0 [facility] Nucleated red blood cell per centageOrdered By: HEALTH ASSESSMENT on 09-23-2024 Nucleated RBC/100 WBC (Bld) [Ratio] 0 % 0-5 [facility] Platelet countOrdered By: HE ALTH ASSESSMENT on 09-23-2024 Platelets (Bld) [#/Vol] 391 10*3/uL 150-450 [facility] RBC Auto (Bld) [#/Vol]Ordere d By: HEALTH ASSESSMENT on 09-23-2024 RBC (Bld) [#/Vol] 4.60 10*6/uL 4.2-5.4 [facility] Screening total cholesterol/ high density lipoprotein (HDL) cholesterol ratioOrdered By: Leyla Allen on 09-23-2024 Cholesterol.total/Nallely sterol in HDL [Mass ratio] 4.22 {ratio} [facility] Screening total cholesterol/ high density lipoprotein (HDL) cholesterol ratioOrdered By: HEALTH ASSESSMENT on 09-23-2024 Cholesterol.total/Nallely sterol in HDL [Mass ratio] 4.27 {ratio} [facility] Serum creatinine measurement (mass/volume)Ordered By: HEALTH ASSESSMENT on 09-23-2024 Creatinine [Mass/Vol] 0.83 mg/dL 0.70-1.20 [facility] Serum globulin measurementOr dered By: HEALTH ASSESSMENT on 09-23-2024 Globulin (S) [Mass/Vol] 2.6 g/dL 2.2-4.2 [facility] Serum glucose measurement (m ass/volume)Ordered By: Leyla Allen on 09-23-2024 Glucose [Mass/Vol] 96 mg/dL 70-99 [facility] Serum glucose measurement (m ass/volume)Ordered By: HEALTH ASSESSMENT on 09-23-2024 Glucose [Mass/Vol] 99 mg/dL 70-99 [facility] Serum or plasma alanine cordoba otransferase (ALT) measurementOrdered By: HEALTH ASSESSMENT on 09-23-2024 ALT [Catalytic activity/Vol] 17 U/L <35 [facility] Serum or plasma albumin krysta urement (mass/volume)Ordered By: HEALTH ASSESSMENT on 09-23-2024 Albumin [Mass/Vol] 4.3 g/dL 3.5-5.0 [facility] Serum or plasma albumin/glob ulin mass ratioOrdered By: HEALTH ASSESSMENT on 09-23-2024 Albumin/Globulin [Mass ratio] 1.7 {ratio} 0.9-2.4 [facility] Serum or plasma alkaline paige sphatase measurementOrdered By: HEALTH ASSESSMENT on 09-23-2024 ALP [Catalytic activity/Vol] 53 U/L 35-104 [facility] Serum or plasma anion gap de termination (moles/volume)Ordered By: HEALTH ASSESSMENT on 09-23-2024 Anion gap [Moles/Vol] 12 mmol/L 5-15 [facility] Serum or plasma calcium krysta urement (mass/volume)Ordered By: HEALTH ASSESSMENT on 09-23-2024 Calcium [Mass/Vol] 9.2 mg/dL 7.6-11.0 [facility] Serum or plasma cholesterol in HDL measurement (mass/volume)Ordered By: Leyla Allen on 09-23-2024 Cholesterol in HDL [Mass/Vol] 43 mg/dL >40 [facility] Comment on above: National Cholesterol Education Program (NCEP) guidelines:<40 mg/dL: Low HDL-cholesterol (major risk factor for CHD)>= 60 mg/dL: High HDL-cholesterol (negative risk factor for CHD)HDL-cholesterol is affected by a number of factors, e.g. smoking, exercise, hormones, sex and age. Serum or plasma cholesterol in HDL measurement (mass/volume)Ordered By: HEALTH ASSESSMENT on 09-23-2024 Cholesterol in HDL [Mass/Vol] 43 mg/dL >40 [facility] Comment on above: National Cholesterol Education Program (NCEP) guidelines:<40 mg/dL: Low HDL-cholesterol (major risk factor for CHD)>= 60 mg/dL: High HDL-cholesterol (negative risk factor for CHD)HDL-cholesterol is affected by a number of factors, e.g. smoking, exercise, hormones, sex and age. Serum or plasma cholesterol measurement (mass/volume)Ordered By: Leyla Allen on 09-23-2024 Cholesterol [Mass/Vol] 183 mg/dL <201 [facility] Comment on above: Cholesterol level, D esirable <200 mg/dLBorderline high cholesterol 200-239 mg/dLHigh cholesterol >=240 mg/dLRecommendations of the NCEP Adult Treatment Panel for the following risk-cutoff thresholds for the [place] population. Serum or plasma cholesterol measurement (mass/volume)Ordered By: HEALTH ASSESSMENT on 09-23-2024 Cholesterol [Mass/Vol] 184 mg/dL <201 [facility] Comment on above: Cholesterol level, D esirable <200 mg/dLBorderline high cholesterol 200-239 mg/dLHigh cholesterol >=240 mg/dLRecommendations of the NCEP Adult Treatment Panel for the following risk-cutoff thresholds for the [place] population. Serum or plasma estradiol me asurement after follitropin dose (mass/volume)Ordered By: Leyla Allen on 09-23-2024 E2 post dose follitropin [Mass/Vol] 81.0 pg/mL [facility] Comment on above: FEMALES ADULT FEMALE : Premenopausal: 15-350 pg/mL(E2 levels vary widely through the menstrual cycle) Postmenopausal: <10 pg/mL GUILLE STAGES MEAN AGE REFERENCE RANGES Stage I(>14 days and prepubertal) 7.1 years Undetectable-20 pg/mLL Stage II 10.5 years Undetectable-24 pg/mL Stage III 11.6 years Undetectable-60 pg/mL Stage IV 12.3 years 15-85 pg/mL Stage V 14.5 years 15-350 pg/mL Puberty onset (transition from Guille stage I to Guille stage II) occurs for girls at a median age of 10.5 (/- 2) years. There is evidence that it may occur up to 1 year earlier in obese girls and in girls.Progression through Guille stages is variable. Guille stage V (adult) should be reached by age 18. Serum or plasma free testost erone measurement (mass/volume)Ordered By: Leyla Allen on 09-23-2024 Testosterone Free [Mass/Vol] [facility] Comment on above: Test not performedUn able to calculate result since non-numeric resultobtained for component test. Serum or plasma potassium me asurementOrdered By: HEALTH ASSESSMENT on 09-23-2024 Potassium [Moles/Vol] 3.9 mmol/L 3.3-5.1 [facility] Serum or plasma sodium measu rement (moles/volume)Ordered By: HEALTH ASSESSMENT on 09-23-2024 Sodium [Moles/Vol] 136 mmol/L 133-145 [facility] Serum or plasma urea nitroge n measurement (mass/volume)Ordered By: HEALTH ASSESSMENT on 09-23-2024 Urea nitrogen [Mass/Vol] 17 mg/dL 4-19 [facility] Serum or plasma uric acid me asurement (mass/volume)Ordered By: HEALTH ASSESSMENT on 09-23-2024 Urate [Mass/Vol] 6.1 mg/dL High 2.6-6.0 [facility] Comment on above: The drugs N-Acetylcy steine and Metamizole may falsely depress this assay. Serum phosphorus measurement Ordered By: HEALTH ASSESSMENT on 09-23-2024 Phosphorus Level 3.5 mg/dL 2.7-4.5 [facility] TSH DL <= 0.005 mIU/L QnOrde red By: Leyla Allen on 09-23-2024 Thyroid Stimulating Hormone (TSH) 2.790 uIU/mL 0.300-4.200 [facility] TSH Qn 2.790 uIU/mL 0.300-4.200 [facility] Testosterone Free [Mass/Vol] Ordered By: Leyla Allen on 09-23-2024 [facility] Comment on above: Test not performedUn able to calculate result since non-numeric resultobtained for component test. Testosterone Free/Testostero ne.total [Mass fraction]Ordered By: Leyla Allen on 09-23-2024 Percent Free [facility] Comment on above: Test not performedTe st not performed. Insufficient specimen to perform orcomplete analysis.CONTACTED DOMINIQUE Ayoub AT YOUR FACILITY ON 09-30-2024 Testosterone, totalOrdered B y: Leyla Allen on 09-23-2024 Testosterone [Mass/Vol] 22 ng/dL 4-50 [facility] Thyroid Stim Hormone (TSH)on 09-23-2024 TSH 2.790 uIU/mL Normal 0.300-4.200 [facility] Comment on above: Performed By: #### L 501.0100, L500.4100, L506.1001, L501.9520, L3100.5125, L3300.1750 #### [facility] [address] [place], [address] Total proteinOrdered By: Nati [facility] ASSESSMENT on 09-23-2024 Protein [Mass/Vol] 6.9 g/dL 5.9-8.4 [facility] Triglycerides measurementOrd ered By: Leyla Allen on 09-23-2024 Triglyceride [Mass/Vol] 107 mg/dL <199 [facility] Comment on above: The drugs N-Acetylcy steine and Metamizole may falsely depress this assay. Normal range: <150 mg/dLBorderline High: 150-199 mg/dLHigh: 200-499 mg/dLVery High: >500 mg/dL Triglycerides measurementOrd ered By: HEALTH ASSESSMENT on 09-23-2024 Triglyceride [Mass/Vol] 107 mg/dL <199 [facility] Comment on above: The drugs N-Acetylcy steine and Metamizole may falsely depress this assay. Normal range: <150 mg/dLBorderline High: 150-199 mg/dLHigh: 200-499 mg/dLVery High: >500 mg/dL Urinalysis, Employeeon 09-23 BILIRUBIN URINE Normal Negative [facility] Comment on above: Order Comment: UAUri ne, Random Result Comment: DECL INED Performed By: #### L 400.0100, L100.0200, L500.2900 ####[facility] [address] [place], [address] Clarity (U) Normal Clear [facility] Comment on above: Order Comment: UAUri ne, Random Result Comment: DECL INED Performed By: #### L 400.0100, L100.0200, L500.2900 ####[facility] [address] [place], [address] Color (U) Normal Yellow [facility] Comment on above: Order Comment: UAUri ne, Random Result Comment: DECL INED Performed By: #### L 400.0100, L100.0200, L500.2900 ####[facility] [address] [place], [address] GLUCOSE, UR Normal Normal [facility] Comment on above: Order Comment: UAUri ne, Random Result Comment: DECL INED Performed By: #### L 400.0100, L100.0200, L500.2900 ####[facility] [address] [place], [address] KETONE UR Normal Negative [facility] Comment on above: Order Comment: UAUri ne, Random Result Comment: DECL INED Performed By: #### L 400.0100, L100.0200, L500.2900 ####[facility] [address] [place], [address] LEUK ESTERASE Normal Negative [facility] Comment on above: Order Comment: UAUri ne, Random Result Comment: DECL INED Performed By: #### L 400.0100, L100.0200, L500.2900 ####[facility] [address] [place], [address] Nitrite Ql (U) Normal Negative [facility] Comment on above: Order Comment: UAUri ne, Random Result Comment: DECL INED Performed By: #### L 400.0100, L100.0200, L500.2900 ####[facility] [address] [place], [address] OCCULT BLOOD-UR Normal Negative [facility] Comment on above: Order Comment: UAUri ne, Random Result Comment: DECL INED Performed By: #### L 400.0100, L100.0200, L500.2900 ####[facility] [address] [place], [address] pH UR Normal 5.0 - 8.0 [facility] Comment on above: Order Comment: UAUri ne, Random Result Comment: DECL INED Performed By: #### L 400.0100, L100.0200, L500.2900 ####[facility] [address] [place], [address] PROT DIPSTX Normal Negative [facility] Comment on above: Order Comment: UAUri ne, Random Result Comment: DECL INED Performed By: #### L 400.0100, L100.0200, L500.2900 ####[facility] [address] [place], [address] SP.GR. DIPSTX Normal 1.002-1.030 [facility] Comment on above: Order Comment: UAUri ne, Random Result Comment: DECL INED Performed By: #### L 400.0100, L100.0200, L500.2900 ####[facility] [address] [place], [address] UR Preservative Normal [facility] Comment on above: Order Comment: UAUri ne, Random Result Comment: DECL INED Performed By: #### L 400.0100, L100.0200, L500.2900 ####[facility] [address] [place], [address] UROBILI Normal Normal [facility] Comment on above: Order Comment: UAUri ne, Random Result Comment: DECL INED Performed By: #### L 400.0100, L100.0200, L500.2900 ####[facility] [address] [place], [address] Vitamin D, 25-hydroxyOrdered By: Leyla Allen on 09-23-2024 Vitamin D 25-Hydroxy 27.8 ng/mL Low 30-100 [facility] Comment on above: Vitamin D StatusDefi ciency: <20 ng/mL (50nmol/L)Insufficiency: 20-30 ng/mL (50-75 nmol/L)Sufficiency: 30-100 ng/mL (75-250 nmol/L)Toxicity: >100 ng/mL (>250 nmol/L) White blood cell (WBC) count Ordered By: HEALTH ASSESSMENT on 09-23-2024 WBC (Bld) [#/Vol] 5.9 10*3/uL 4.4-11.0 [facility] No Panel Informationon 08-14 Influenza Types A,B Rapid (Clinic) Negative [facility] Office Visit Reporton 2024 Office Visit Report [facility] [address] [place] [address] OFFICE VISIT Date of Service: 08/14/24 MR#: [id number] Acct: [id number] Patient: MARIAH BECK Rep #: [id number] : 1975 Provider: DAWOOD Rajan Age/Sex: 49/F Location: [facility].N Status: Signed Intake Vital Signs 11/27/23 14:11 08/14/24 12:11 Height 1.65 m 1.65 m Weight: 81.647 kg 82.1 kg BMI 29.9 30.1 BP 110/70 126/92 H Blood Pressure Location Lt brachial Rt brachial Position Sitting Sitting Respiration 16 Pulse 82 112 H Pulse Source Monitor Monitor Temp 98.7 F Temp Source Temporal Pulse Oximetry (%) 98 99 Oxygen Delivery Method room air Intake Visit Reasons: CHEST CONGESTION/COUGH Chief Complaint: cough Allergies labetalol Allergy (Severe, Verified 08/14/24 12:12) Rash Sulfa (Sulfonamide Antibiotics) Allergy (Severe, Verified 08/14/24 12:12) Rash adhesive Adverse Reaction (Verified 08/14/24 12:12) Rash Medications ???Medication ???Instructions ???Recorded ???Confirmed ???Type hydrochlorothiazid e 25 mg tablet See Rx Instructions .Route 11/27/23 08/14/24 Rx .COMPLEX #90 tabs meloxicam 15 mg tablet 15 mg PO DAILY PRN pain #90 tabs 11/27/23 08/14/24 Rx benzonatate 100 mg capsule 100 mg PO BID-TID PRN cough #15 08/14/24 08/14/24 Rx caps PFSH Medical History Right shoulder pain Contact with or exposure to other viral diseases Urinary tract infection with hematuria Flank pain Wears hearing aid Alcohol use Heartburn Non-smoker Hypertension Health care maintenance Colon cancer screening Left shoulder pain Fatigue Hearing problem Carpal tunnel syndrome Seasonal allergies Gestational hypertension History of gestational diabetes Surgical History Hx of wisdom tooth extraction delivery delivered uterine ablation Family History Mother Alcoholism Bladder cancer Depression Colon polyps Father Diabetes Myocardial infarction Hypertension Colon polyps Grandfather Diabetes High cholesterol Grandfather Diabetes High cholesterol Grandmother Myocardial infarction High cholesterol Other Heart disease Social History adopted: No household members: family number of children: 3 current occupational status: employed current occupation: employeehealth nurse [employer] pets and animals: Yes pets and animals: cat(s) Smoking Status: Never smoker alcohol intake: current alcohol intake frequency: a few times a month substance use type: does not use caffeine: Yes (2-3) Type: coffee what type of physical activity do you participate in: aerobics and weight training frequency: 5-6 times per week seatbelt use: always do you feel safe at home: Yes additional social history: Bill- Self Employed Patient is the employee health nurse at [employer] HPI Chief Complaint: cough Details: MARIAH BECK, is a 49 F who presents to the office today for cough. Pt has been sick about 3 days. She works at the hospital. She has a productive cough with yellow mucus. She also has fevers, and is starting to have mild sinus congestion. She is not SOB. She took a home covid test which was negative. ROS Const Constitutional: Positive for fatigue and fever(s) ENT ENT: Positive for nasal congestion, nasal discharge and sore throat (mild irritation); No ear or mastoid pain Resp Respiratory: Positive for cough and chest congestion; No shortness of breath or wheezing Gastro GI: No diarrhea, nausea/dyspepsia or vomiting Endo Endocrine: Positive for fatigue Aller/Imm Allergy/Immunologi c: No wheezing Exam Const General: cooperative, healthy appearing, comfortable, no acute distress, well developed and well groomed Nutritional Appearance: average body habitus and well nourished Orientation: alert, awake and oriented x3 HENMT Head: normocephalic and atraumatic Ears: hearing grossly normal bilaterally, external ears normal and TM's normal bilaterally Throat: posterior oropharynx abnormal erythema and postnasal drainage Resp Effort Inspection: normal respiratory effort, able to speak in complete sentences, symmetric chest movement and no cough Auscultation: Bilateral: Clear to Auscultation Cardio Rate: regular rate Rhythm: regular rhythm Heart Sounds: no murmurs Results POC FLU A B Office Flu A B Negative FLU A B Last Edit by Alisha Westfall on 08/14/24 12:25 Coding Level of Care Code Off vis,est,level 3 Diagnoses Acute bronchitis J20.9 Assessment and Plan Assessment and Plan (1) Acute bronchitis: Status: Acute Plan: home covid test negative. rapid flu test here is negative. start azithromyci (more content not included)... Normal [facility] Chiropractic Reporton 2023 Chiropractic Report [facility] [address] [place] [id number] OFFICE VISIT Date of Service: 04/16/24 MR#: [id number] Acct: [id number] Name: MARIAH BECK Rep #: [id number] : 1975 Provider: LILIA Michael Age/Sex: 48/F Location: [facility] [place] [facility] Status: Signed Intake Vital Signs 11/27/23 14:11 Height 5 ft 5 in Weight: 180 lb BMI 29.9 BP 110/70 Blood Pressure Location Lt brachial Position Sitting Respiration 16 Pulse 82 Pulse Source Monitor Pulse Oximetry (%) 98 Oxygen Delivery Method room air Intake Visit Reasons: Back pain Chief Complaint: neck/lbp discomfort Is patient in pain?: Yes Pain scale (1-10): 2 Allergies labetalol Allergy (Severe, Verified 04/16/24 14:43) Rash Sulfa (Sulfonamide Antibiotics) Allergy (Severe, Verified 04/16/24 14:43) Rash adhesive Adverse Reaction (Verified 04/16/24 14:43) Rash [facility] History Right shoulder pain Contact with or exposure to other viral diseases Urinary tract infection with hematuria Flank pain Wears hearing aid Alcohol use Heartburn Non-smoker Hypertension Health care maintenance Colon cancer screening Left shoulder pain Fatigue Hearing problem Carpal tunnel syndrome Seasonal allergies Gestational hypertension History of gestational diabetes Surgical History Hx of wisdom tooth extraction delivery delivered uterine ablation Family History Mother Alcoholism Bladder cancer Depression Colon polyps Father Diabetes Myocardial infarction Hypertension Colon polyps Grandfather Diabetes High cholesterol Grandfather Diabetes High cholesterol Grandmother Myocardial infarction High cholesterol Other Heart disease Social History adopted: No household members: family number of children: 3 current occupational status: employed current occupation: employeehealth nurse [employer] pets and animals: Yes pets and animals: cat(s) Smoking Status: Never smoker alcohol intake: current alcohol intake frequency: a few times a month substance use type: does not use caffeine: Yes (2-3) Type: coffee what type of physical activity do you participate in: aerobics and weight training frequency: 5-6 times per week seatbelt use: always do you feel safe at home: Yes additional social history: Bill- Self Employed Patient is the employee health nurse at [employer] HPI Back pain Chief Complaint: Neck and low back pain Visit Number: 3 Details: Mariah Beck a 48 year old female is here today to follow up on neck and low back pain. Pt. advises she has been experiencing some neck tightness today that is mild but persistent particularly in the mornings. States that her low back has been feeling pretty good. She denies known cause or MOON's. Rates her neck pain at a 2/10 today. Mariah just feels that it is time for an adjustment. She does stretching and exercise at home. She denies numbness, tingling or radicular symptoms. Mariah reports chiropractic adjustments are helpful in relieving her discomfort. Onset: 08/24/22 Location: Neck, LBP Duration: intermittent Aggravating or associated factors: sitting,yard work, sleeping Relieving factors: exercise,chiro Pain Quality: aching and dull Exam Musc General: Yes normal posture, normal gait, joint tenderness and decreased range of motion Cervical Spine: Yes normal cervical lordosis, Yes cervical muscular tenderness bilateral diffuse , Yes cervical spasm bilateral lower trapezius and paracervical muscles, bilateral upper intrinsics and Yes misalignment misalignment: C1, C4, C5 and C6 Thoracic/Lumber: Yes thoracic and lumbar spine normal to inspection, Yes paraspinal tenderness bilaterally in the upper thoracic, in the mid thoracic and in the lower lumbar, Yes thoraco-lumbar spasm on the right greater than left (Trap, Levator, glute) and Yes misalignment T2, T3, T6, T7, L3, L4, L5 and RIL Sacroiliac joints: bilaterally tender to palpation Office Procedures Procedures - Chiropractic Procedures Manipulation: Cervical C1 and C6, Lumbar L4, Thoracic T2 and Pelvis RIL Manipulation: 3-4 regions Electronic Stimulation: Yes Electrical Stimulation: Cervical 15 mins mA Therapy Performed by:: Zena Dillard Patient Response: positive Assessment and Plan Assessment and Plan (1) Segmental and somatic dysfunction of lumbar region: Status: Acute (2) Segmental and somatic dysfunction of thoracic region: Status: Acute (3) Segmental and somatic dysfunction of cervical region: Status: Acute (4) Segmental and somatic dysfunction of pelvic region: Status: Acute Orders: (more content not included)... Normal [facility] Absolute lymphocyte countOrd ered By: HEALTH ASSESSMENT on 11-09-2023 Lymphocytes Auto (Unsp spec) [#/Vol] 2.18 10*3/uL 0.83-4.51 [facility] Basophil percentageOrdered B y: HEALTH ASSESSMENT on 11-09-2023 Basophil percentage 4.0 mg/dL 2.5-4.9 [facility] Bilirubin [Mass/Vol] 0.40 mg/dL 0.20-1.00 [facility] Comment on above: For patients on eltr ombopag therapy, use of Dimension Dickey TBIL is not recommended. Chloride [Moles/Vol] 104 mmol/L 98-107 [facility] Cholesterol [Mass/Vol] 195 mg/dL <200 [facility] Comment on above: <200 mg/dL Desirable 200-240 mg/dL Borderline >240 mg/dL High Risk Glucose [Mass/Vol] 90 mg/dL 74-106 [facility] Hemoglobin (Bld) [Mass/Vol] 13.9 g/dL 12.0-15.0 [facility] LDH [Catalytic activity/Vol] 206 U/L 84-246 [facility] Neutrophils (Bld) [#/Vol] 2.0 10*3/uL 2.0-7.7 [facility] Potassium [Moles/Vol] 3.7 mmol/L 3.5-5.1 [facility] Protein [Mass/Vol] 7.1 g/dL 6.4-8.2 [facility] Sodium [Moles/Vol] 136 mmol/L 136-145 [facility] Triglyceride [Mass/Vol] 94 mg/dL <199 [facility] Comment on above: The drugs N-Acetylcy steine and Metamizole may falsely depress this assay.Serum Triglycerides Reference Interval Normal <150 mg/dL Borderline high 150 - 199 mg/dL High 200 - 499 mg/dL Very High > or = 500 mg/dL WBC (Bld) [#/Vol] 4.8 10*3/uL 4.4-11.0 [facility] Bilirubin Test strip Ql (U)O rdered By: HEALTH ASSESSMENT on 11-09-2023 Bilirubin Ql (U) Negative Negative [facility] Blood band neutrophil count as percentage of total leukocytesOrdered By: HEALTH ASSESSMENT on 11-09-2023 Band form neutrophils/100 WBC (Bld) 41.7 % 47-70 [facility] Determination of erythrocyte mean corpuscular volume (MCV)Ordered By: HEALTH ASSESSMENT on 11-09-2023 MCV (RBC) [Entitic vol] 89.7 fL 81-99 [facility] Direct bilirubinOrdered By: HEALTH ASSESSMENT on 11-09-2023 Bilirubin.direct [Mass/Vol] 0.10 mg/dL 0.00-0.30 [facility] Erythrocyte distribution wid th ratioOrdered By: HEALTH ASSESSMENT on 11-09-2023 Erythrocyte distribution width (RBC) [Ratio] 12.1 % 11.6-14.6 [facility] Erythrocyte distribution wid th standard deviationOrdered By: HEALTH ASSESSMENT on 11-09-2023 Erythrocyte distribution width (RBC) [Entitic vol] 39.2 fL 35.1-43.9 [facility] Hematocrit Auto (Bld) [Volum e fraction]Ordered By: HEALTH ASSESSMENT on 11-09-2023 Hematocrit (Bld) [Volume fraction] 41.0 % 37-47 [facility] Ketones Test strip Ql (U)Ord ered By: HEALTH ASSESSMENT on 11-09-2023 Ketones Ql (U) Negative Negative [facility] Laboratory - Chemistry and C hemistry - challengeOrdered By: HEALTH ASSESSMENT on 11-09-2023 Albumin/Globulin [Mass ratio] 1.2 {ratio} 0.9-2.4 [facility] ALP [Catalytic activity/Vol] 52 U/L 45-117 [facility] ALT [Catalytic activity/Vol] 28 U/L 13-56 [facility] Cholesterol in HDL [Mass/Vol] 47 mg/dL >40 [facility] Comment on above: The drugs N-Acetylcy steine and Metamizole may falsely depress this assay. Reference Range HDL <40 mg/dL Low HDL Cholesterol HDL >or= 60 mg/dL High HDL Cholesterol Cholesterol in LDL [Mass/Vol] 129 mg/dL 0-130 [facility] Cholesterol.total/Nallely sterol in HDL [Mass ratio] 4.10 {ratio} [facility] CO2 [Moles/Vol] 27.0 mmol/L 21.0-32.0 [facility] Globulin (S) [Mass/Vol] 3.3 g/dL 2.2-4.2 [facility] Urea nitrogen/Creatinine [Mass ratio] 14.9 mg/mg 10-20 [facility] - Chemistry and C hemistry - challengeOrdered By: Eden Murray on 11-09-2023 Cobalamin (Vitamin B12) [Mass/Vol] 432 pg/mL 211-911 [facility] Magnesium [Mass/Vol] 2.1 mg/dL 1.6-2.6 [facility] Laboratory - Hematology and Cell countsOrdered By: HEALTH ASSESSMENT on 11-09-2023 MCH (RBC) [Entitic mass] 30.4 pg 27.0-32.0 [facility] MCHC (RBC) [Mass/Vol] 33.9 g/dL 32-36 [facility] Nucleated RBC (Bld) [#/Vol] 0.00 10*3/uL 0-5 [facility] Nucleated RBC/100 WBC (Bld) [Ratio] 0 % 0-5 [facility] Platelet mean volume (Bld) [Entitic vol] 8.7 fL 6.2-12.0 [facility] Platelets (Bld) [#/Vol] 387 10*3/uL 150-450 [facility] Nitrite Test strip Ql (U)Ord ered By: HEALTH ASSESSMENT on 11-09-2023 Nitrite Ql (U) Negative Negative [facility] No Panel InformationOrdered By: HEALTH ASSESSMENT on 11-09-2023 Estimated GFR (MDRD) Amer 98 mL/min >60 [facility] Comment on above: GFR Calc Estimated GFR (MDRD) Non-Af Amer 81 mL/min >60 [facility] Comment on above: Non- GFR Calc VLDL Cholesterol 19 mg/dL 5-40 [facility] No Panel InformationOrdered By: Eden Murray on 11-09-2023 Vitamin D 25-Hydroxy 35.2 ng/mL [facility] Comment on above: Vitamin D 25(OH) Sta tus Range Deficiency <20 ng/mL (50nmol/L) Insufficiency 20 - 30 ng/mL (50 - 75 nmol/L) Sufficiency 30 - 100 ng/mL (75 - 250 nmol/L) Toxicity >100 ng/mL (>250 nmol/L) Protein Test strip Ql (U)Ord ered By: HEALTH ASSESSMENT on 11-09-2023 Protein Ql (U) Negative Negative [facility] RBC Auto (Bld) [#/Vol]Ordere d By: HEALTH ASSESSMENT on 11-09-2023 RBC (Bld) [#/Vol] 4.57 10*6/uL 4.2-5.4 [facility] Serum or plasma calcium krysta urement (mass/volume)Ordered By: HEALTH ASSESSMENT on 11-09-2023 Calcium [Mass/Vol] 9.1 mg/dL 8.5-10.1 [facility] Serum or plasma creatinine m easurement (mass/volume)Ordered By: HEALTH ASSESSMENT on 11-09-2023 Creatinine [Mass/Vol] 0.80 mg/dL 0.55-1.02 [facility] Comment on above: The validity of the calculated GFR & GFRAA in patients over 70 years has not been determined. Clinical correlation is essential. Serum or plasma thyroid stim ulating hormone (TSH) measurement (units/volume)Ordered By: Edenronan Murray on 11-09-2023 TSH Qn 2.97 uIU/mL 0.358-3.74 [facility] Serum or plasma thyroperoxid ase antibody assay (units/volume)Ordered By: Eden Murray on 11-09-2023 TPO Ab Qn [IU]/mL 0-34 [facility] Comment on above: Performed at: [place] [id number] Director: Titi Dominguez PhD, Phone: [phone] Serum or plasma urea nitroge n measurement (mass/volume)Ordered By: HEALTH ASSESSMENT on 11-09-2023 Urea nitrogen [Mass/Vol] 12 mg/dL 7- [facility] Serum or plasma uric acid me asurement (mass/volume)Ordered By: HEALTH ASSESSMENT on 11-09-2023 Urate [Mass/Vol] 5.6 mg/dL 2.6-6.0 [facility] Comment on above: The drugs N-Acetylcy steine and Metamizole may falsely depress this assay. Thin prep Papanicolaou smear with manual screeningOrdered By: HEALTH ASSESSMENT on 11-09-2023 Thin prep Papanicolaou smear with manual screening 3.8 g/dL 3.2-5.0 [facility] Thin prep Papanicolaou smear with manual screening 34 U/L 15-37 [facility] Thin prep Papanicolaou smear with manual screening 5 5-15 [facility] Thin prep Papanicolaou smear with manual screeningOrdered By: Eden Murray on 11-09-2023 Thin prep Papanicolaou smear with manual screening 1.01 ng/dL 0.76-1.46 [facility] Urine blood detectionOrdered By: HEALTH ASSESSMENT on 11-09-2023 RBC Ql (U) 25 /ul Negative [facility] Urine clarityOrdered By: A LT ASSESSMENT on 11-09-2023 Clarity (U) Clear Clear [facility] Urine color determinationOrd ered By: HEALTH ASSESSMENT on 11-09-2023 Color (U) Yellow Yellow [facility] Urine glucose detectionOrder ed By: HEALTH ASSESSMENT on 11-09-2023 Glucose Ql (U) Normal mg/dl Normal [facility] Urine leukocyte esterase det ection by dipstickOrdered By: HEALTH ASSESSMENT on 11-09-2023 Leukocyte esterase Test strip Ql (U) Negative Negative [facility] Urine pHOrdered By: HEALTH A SSESSMENT on 11-09-2023 pH (U) 6.0 [pH] 5.0 - 8.0 [facility] Urine specific gravity measu rementOrdered By: HEALTH ASSESSMENT on 11-09-2023 Specific gravity (U) [Rel density] 1.020 1.002-1.030 [facility] Urine urobilinogen measureme ntOrdered By: HEALTH ASSESSMENT on 11-09-2023 Urobilinogen Ql (U) Normal mg/dl Normal [facility] Absolute lymphocyte counton 11-03-2021 Lymphocytes Auto (Unsp spec) [#/Vol] 2.00 10*3/uL 0.83-4.51 [facility] Work Phone: Lymphocytes Auto (Unsp spec) [#/Vol] 2.00 10*3/uL 0.83-4.51 [facility] Work Phone: Absolute reticulocyte counto n 11-03-2021 Reticulocytes (Bld) [#/Vol] 0.00 10*3/uL 0-5 [facility] Work Phone: Basophil percentageon 2021 Basophil percentage 3.8 mg/dL 2.5-4.9 [facility] Work Phone: Bilirubin [Mass/Vol] 0.40 mg/dL 0.20-1.00 [facility] Work Phone: Comment on above: For patients on eltr ombopag therapy, use of Dimension Dickey TBIL is not recommended. Chloride [Moles/Vol] 105 mmol/L 98-107 [facility] Work Phone: Cholesterol [Mass/Vol] 197 mg/dL <200 [facility] Work Phone: Comment on above: <200 mg/dL Desirable 200-240 mg/dL Borderline >240 mg/dL High Risk Glucose [Mass/Vol] 91 mg/dL 74-106 [facility] Work Phone: Neutrophils (Bld) [#/Vol] 2.4 10*3/uL 2.0-7.7 [facility] Work Phone: Neutrophils/100 WBC (Bld) 48.3 % 47-70 [facility] Work Phone: Potassium [Moles/Vol] 3.6 mmol/L 3.5-5.1 [facility] Work Phone: Protein [Mass/Vol] 6.9 g/dL 6.4-8.2 [facility] Work Phone: Sodium [Moles/Vol] 137 mmol/L 136-145 [facility] Work Phone: Triglyceride [Mass/Vol] 120 mg/dL [facility] Work Phone: Comment on above: The drugs N-Acetylcy steine and Metamizole may falsely depress this assay.Serum Triglycerides Reference Interval Normal <150 mg/dL Borderline high 150 - 199 mg/dL High 200 - 499 mg/dL Very High > or = 500 mg/dL WBC (Bld) [#/Vol] 4.9 10*3/uL 4.4-11.0 [facility] Work Phone: Basophils/100 WBC (Bld) 0.8 % 0-1 [facility] Work Phone: Chloride [Moles/Vol] 105 mmol/L 98-107 [facility]: Eosinophils/100 WBC (Bld) 2.7 % 0-5 [facility] Work Phone: Glucose [Mass/Vol] 91 mg/dL 74-106 [facility] Work Phone: Neutrophils (Bld) [#/Vol] 2.4 10*3/uL 2.0-7.7 [facility] Work Phone: Neutrophils/100 WBC (Bld) 48.3 % 47-70 [facility] Work Phone: Potassium [Moles/Vol] 3.6 mmol/L 3.5-5.1 [facility] Work Phone: Sodium [Moles/Vol] 137 mmol/L 136-145 [facility] Work Phone: WBC (Bld) [#/Vol] 4.9 10*3/uL 4.4-11.0 [facility] Work Phone: Bilirubin Test strip Ql (U)o n 11-03-2021 Bilirubin Ql (U) Negative Negative [facility] Work Phone: Blood erythrocytes count (nu mber/volume)on 11-03-2021 RBC (Bld) [#/Vol] 4.42 10*6/uL 4.2-5.4 [facility] Work Phone: RBC (Bld) [#/Vol] 4.42 10*6/uL 4.2-5.4 [facility] Work Phone: Blood hemoglobin measurement (mass/volume)on 11-03-2021 Hemoglobin (Bld) [Mass/Vol] 13.5 g/dL 12.0-15.0 [facility] Work Phone: Hemoglobin (Bld) [Mass/Vol] 13.5 g/dL 12.0-15.0 [facility] Work Phone: Blood lymphocytes/100 leukoc yteson 11-03-2021 Lymphocytes/100 WBC (Bld) 41.0 % 19-41 [facility] Work Phone: Blood monocytes/100 leukocyt eson 11-03-2021 Monocytes/100 WBC (Bld) 7.0 % 0-10 [facility] Work Phone: Blood platelet mean volumeon 11-03-2021 Platelet mean volume (Bld) [Entitic vol] 8.8 fL 6.2-12.0 [facility] Work Phone: Determination of erythrocyte mean corpuscular volume (MCV)on 11-03-2021 MCV (RBC) [Entitic vol] 89.1 fL 81-99 [facility] Work Phone: MCV (RBC) [Entitic vol] 89.1 fL 81-99 [facility] Work Phone: Direct bilirubinon Bilirubin.direct [Mass/Vol] 0.09 mg/dL 0.00-0.30 [facility] Work Phone: Hematocrit Auto (Bld) [Volum e fraction]on 11-03-2021 Hematocrit (Bld) [Volume fraction] 39.4 % 37-47 [facility] Work Phone: Hematocrit (Bld) [Volume fraction] 39.4 % 37-47 [facility] Work Phone: Ketones Test strip Ql (U)on 11-03-2021 Ketones Ql (U) Negative Negative [facility] Work Phone: Laboratory - Chemistry and C hemistry - challengeon 11-03-2021 ALP [Catalytic activity/Vol] 53 U/L 45-117 [facility] Work Phone: ALT [Catalytic activity/Vol] 21 U/L 13-56 [facility] Work Phone: Cholesterol.total/Nallely sterol in HDL [Mass ratio] 4.90 {ratio} [facility] Work Phone: CO2 [Moles/Vol] 26.0 mmol/L 21.0-32.0 [facility] Work Phone: Globulin (S) [Mass/Vol] 3.3 g/dL 2.2-4.2 [facility] Work Phone: Urea nitrogen/Creatinine [Mass ratio] 18.3 mg/mg 10-20 [facility] Work Phone: CO2 [Moles/Vol] 26.0 mmol/L 21.0-32.0 [facility] Work Phone: Cobalamin (Vitamin B12) [Mass/Vol] 490 pg/mL 211-911 [facility] Work Phone: Urea nitrogen/Creatinine [Mass ratio] 18.3 mg/mg 10-20 [facility] Work Phone: Laboratory - Hematology and Cell countson 11-03-2021 Erythrocyte distribution width (RBC) [Entitic vol] 40.3 fL 35.1-43.9 [facility] Work Phone: Erythrocyte distribution width (RBC) [Ratio] 12.3 % 11.6-14.6 [facility] Work Phone: Immature granulocytes/100 WBC (Bld) 0.200 % 0.0-0.9 [facility] Work Phone: Comment on above: IG% - Immature Granu locytes (promyelocytes, myelocytes and metamyelocytes) > 1% indicates that a LEFT SHIFT is Present. MCH (RBC) [Entitic mass] 30.5 pg 27.0-32.0 [facility] Work Phone: Erythrocyte distribution width (RBC) [Entitic vol] 40.3 fL 35.1-43.9 [facility] Work Phone: Erythrocyte distribution width (RBC) [Ratio] 12.3 % 11.6-14.6 [facility] Work Phone: Immature granulocytes/100 WBC (Bld) 0.200 % 0.0-0.9 [facility] Work Phone: Comment on above: IG% - Immature Granu locytes (promyelocytes, myelocytes and metamyelocytes) > 1% indicates that a LEFT SHIFT is Present. MCH (RBC) [Entitic mass] 30.5 pg 27.0-32.0 [facility] Work Phone: Nucleated RBC/100 WBC (Bld) [Ratio] 0 % 0-5 [facility] Work Phone: MCHC Auto (RBC) [Mass/Vol]on 11-03-2021 MCHC (RBC) [Mass/Vol] 34.3 g/dL 32-36 [facility] Work Phone: MCHC (RBC) [Mass/Vol] 34.3 g/dL 32-36 [facility] Work Phone: Nitrite Test strip Ql (U)on 11-03-2021 Nitrite Ql (U) Negative Negative [facility] Work Phone: No Panel Informationon 11-03 Estimated GFR (MDRD) Amer 97 mL/min >60 [facility] Work Phone: Comment on above: GFR Calc Estimated GFR (MDRD) Non-Af Amer 80 mL/min >60 [facility] Work Phone: Comment on above: Non- GFR Calc Estimated GFR (MDRD) Amer 97 mL/min >60 [facility] Work Phone: Estimated GFR (MDRD) Non-Af Amer 80 mL/min >60 [facility] Work Phone: Thyroid Stimulating Hormone (TSH) 2.43 uIU/mL 0.358-3.74 [facility] Work Phone: Vitamin D 25-Hydroxy 34.8 ng/mL [facility] Work Phone: Comment on above: Vitamin D 25(OH) Sta tus Range Deficiency <20 ng/mL (50nmol/L) Insufficiency 20 - 30 ng/mL (50 - 75 nmol/L) Sufficiency 30 - 100 ng/mL (75 - 250 nmol/L) Toxicity >100 ng/mL (>250 nmol/L) Platelets bldon 11-03-2021 Platelets (Bld) [#/Vol] 408 10*3/uL 150-450 [facility] Work Phone: Platelets (Bld) [#/Vol] 408 10*3/uL 150-450 [facility] Work Phone: Protein Test strip Ql (U)on 11-03-2021 Protein Ql (U) Negative Negative [facility] Work Phone: Serum or plasma albumin krysta urement (mass/volume)on 11-03-2021 Albumin [Mass/Vol] 3.6 g/dL 3.2-5.0 [facility] Work Phone: Serum or plasma albumin/glob ulin mass ratioon 11-03-2021 Albumin/Globulin [Mass ratio] 1.1 {ratio} 0.9-2.4 [facility] Work Phone: Serum or plasma calcium krysta urement (mass/volume)on 11-03-2021 Calcium [Mass/Vol] 8.7 mg/dL 8.5-10.1 [facility] Work Phone: Calcium [Mass/Vol] 8.7 mg/dL 8.5-10.1 [facility] Work Phone: Serum or plasma cholesterol in HDL measurement (mass/volume)on 11-03-2021 Cholesterol in HDL [Mass/Vol] 40 mg/dL [facility] Work Phone: Comment on above: The drugs N-Acetylcy steine and Metamizole may falsely depress this assay. Reference Range HDL <40 mg/dL Low HDL Cholesterol HDL >or= 60 mg/dL High HDL Cholesterol Serum or plasma cholesterol in VLDL measurement (mass/volume)on 11-03-2021 Cholesterol in VLDL [Mass/Vol] 24 mg/dL 5-40 [facility] Work Phone: Serum or plasma creatinine m easurement (mass/volume)on 11-03-2021 Creatinine [Mass/Vol] 0.82 mg/dL 0.55-1.02 [facility] Work Phone: Comment on above: The validity of the calculated GFR & GFRAA in patients over 70 years has not been determined. Clinical correlation is essential. Creatinine [Mass/Vol] 0.82 mg/dL 0.55-1.02 [facility] Work Phone: Comment on above: The validity of the calculated GFR & GFRAA in patients over 70 years has not been determined. Clinical correlation is essential. Serum or plasma low density lipoprotein (LDL) cholesterol measurement (mass/volume)on 11-03-2021 Cholesterol in LDL [Mass/Vol] 133 mg/dL 0-130 [facility] Work Phone: Serum or plasma urea nitroge n measurement (mass/volume)on 11-03-2021 Urea nitrogen [Mass/Vol] 15 mg/dL 7-18 [facility] Work Phone: Urea nitrogen [Mass/Vol] 15 mg/dL 7-18 [facility] Work Phone: Serum or plasma uric acid me asurement (mass/volume)on 11-03-2021 Urate [Mass/Vol] 5.9 mg/dL 2.6-6.0 [facility] Work Phone: Comment on above: The drugs N-Acetylcy steine and Metamizole may falsely depress this assay. Thin prep Papanicolaou smear with manual screeningon 11-03-2021 Thin prep Papanicolaou smear with manual screening 18 U/L 15-37 [facility] Work Phone: Thin prep Papanicolaou smear with manual screening 6 5-15 [facility] Work Phone: Thin prep Papanicolaou smear with manual screening 166 U/L 84-246 [facility] Work Phone: Thin prep Papanicolaou smear with manual screening 6 5-15 [facility] Work Phone: Urine blood detectionon 10-22 RBC Ql (U) 25 /ul Negative [facility] Work Phone: Urine clarityon 11-03-2021 Clarity (U) Clear Clear [facility] Work Phone: Urine color determinationon 11-03-2021 Color (U) Yellow Yellow [facility] Work Phone: Urine glucose detectionon Glucose Ql (U) Normal mg/dl Normal [facility] Work Phone: Urine leukocyte esterase det ection by dipstickon 11-03-2021 Leukocyte esterase Test strip Ql (U) Negative Negative [facility] Work Phone: Urine pHon 11-03-2021 pH (U) 6.0 [pH] [facility] Work Phone: Urine specific gravity measu rementon 11-03-2021 Specific gravity (U) [Rel density] 1.020 [facility] Work Phone: Urobilinogen Auto test strip Ql (U)on 11-03-2021 Urobilinogen Ql (U) Normal mg/dl Normal [facility] Work Phone: CNPTOUTREACHon 08-14-2019 CNPTOUTREACH Patient Outreach (FAMPWS) -------- MARIAH BECK ([id number]) 1975 F Date Time Provider Department 08/14/19 NARA GALLEGOS) KAT During your visit today, we recorded the following information about you: Nara Gallegos MA 08/14/2019 3:18 PM Signed [facility]S ASSISTANT QUICKNOTE Provider Action/FYI: Patients charted reviewed in teamlet with Last patient activity 03-07-16 Last PCP Based on this information Dr. Garciahaines been removed as PCP. Patient identified by name and . Nara Gallegos MA Allergies As of Date: 08/14/2019 Noted Allergy Reaction LABATOLOL [Other] 09/06/2005 2 - Rash BACTRIM (SULFAMETHOXAZOLE- TRIMETH*11/26/2010 4 - Hives Date Reviewed: 02/10/2016 Reviewed by: Elena Valverde LPN - Fully Assessed Reason for Visit: PHMA/Care Gap Outreach [[id number]] Prescriptions as of 08/14/2019 Sig: SCOPOLAMINE 1 MG OVER 3 DAYS * Apply 1 Patch as directed doreen* CIPROFLOXACIN 0.3 %-DEXAMETHA* Use 4 Drops in the right ear * OMEGA-3 FATTY ACIDS-FISH OIL * Take by mouth. SPIRONOLACTONE 25 MG TABLET Take 1 tablet by mouth once d* * VITAMIN A DAY ORAL Take by mouth once daily. 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] 05/03/2006 12/17/2008 Sleep disturbance, unspecified [G47.9] 08/15/2007 PREV DELIVERY NOS-ANTEPART [O34.219] 09/01/2008 12/17/2008 Rosacea [L71.9] 05/31/2011 Telangiectasia [I78.1] 05/31/2011 Flush [R23.2] 05/31/2011 Johnson angioma [I78.1] 05/31/2011 Solar lentigo [L81.4] 05/31/2011 Other acne [L70.8] 05/31/2011 Actinic skin damage [L57.8] 05/31/2011 Menorrhagia [N92.0] 02/06/2012 PMS (premenstrual syndrome) [N94.3] 02/06/2012 Congenital sensorineural hearing loss [H90.5] 12/23/2013 Menstrual edema [N94.89] 12/23/2013 Fluid retention [R60.9] 12/23/2013 Skin lesion of right leg [L98.9] 12/23/2013 Microscopic hematuria [R31.29] 12/23/2013 Encounter Status:Closed by NARA GALLEGOS on 08/14/19 [facility] PROGRESSon 08-14-2019 PROGRESS HNO ID: [id number] Author: Nara Crane ([place]) Rosy Service: ? Author Type: Dot Compliance Manager Type: Progress Notes Filed: 08/14/2019 3:18 PM Note Text: [facility]ICK[facility]'S ASSISTANT QUICKNOTE Provider Action/FYI: Patients charted reviewed in teamlet with Last patient activity 03-07-16 Last PCP Based on this information Dr. Garciahas been removed as PCP. Patient identified by name and . Nara Gallegos MA [facility] Microbiology: Culture, Genit al Comprehensiveon 03-20-2017 CUV Neisseria or beta-hemolytic Streptococcus isolated. [facility] GE use only - for [employer] import when terms are not otherwise specified Neisseria or beta-hemolytic Streptococcus isolated. Invalid Interpretation Code [facility] Microbiology: (P) Culture, G enital Comprehensiveon 03-18-2017 GE use only - for [employer] import when terms are not otherwise specified . Invalid Interpretation Code [facility] Office Visit: yeaston 2016 Documentation of current medications (procedure) Done Invalid Interpretation Code [facility] Work Phone: Fall risk assessment No [facility] Work Phone: Protein mass conc Done [facility] Tobacco smoking status NHIS Never [facility] Work Phone: Tobacco smoking status [facility] Never smoker [facility] Tobacco use [facility] Never smoker Invalid Interpretation Code [facility] Work Phone: Microbiology: Culture, Urine on 03-16-2017 GE use only - for [employer] import when terms are not otherwise specified Urine CultureCulture exhibits no growth. Invalid Interpretation Code [facility] Office Visit: est annualon 0 03-13-2017 Documentation of current medications (procedure) Done Invalid Interpretation Code [facility] Fall risk assessment No Invalid Interpretation Code [facility] Tobacco smoking status NHIS Never Invalid Interpretation Code [facility] Tobacco use [facility] Never smoker Invalid Interpretation Code [facility] Office Visit: Spine Visit- B quita pruett 11-17-2016 Documentation of current medications (procedure) Done Invalid Interpretation Code [facility] Work Phone: Documentation of current medications (procedure) T Invalid Interpretation Code [facility] Work Phone: Office Visit: est annualon 0 07-30-2014 General categories [Interpretation] of Cervical or vaginal smear or scraping by Cyto stain Normal [facility] Office Visit: est annualon 0 07-24-2012 Breast Mammogram screening Normal [facility] Vital Signs Date Time Vital Sign Value Performing Clinician Facility 02-05-2025 11:30-0400 Body height 165.[address] Jean Keys MD Work Phone: [facility] 02-05-2025 11:26-0400 Body mass index (BMI) [Ratio] 30.4 kg/m2 Dr. Jean Keys MD Work Phone: [facility] 02-05-2025 11:26-0400 Body weight 83.[address] Jean Keys MD Work Phone: [facility] 02-05-2025 11:26-0400 Diastolic blood pressure 88 mm[Hg] Dr. Jean Keys MD Work Phone: [facility] 02-05-2025 11:26-0400 Systolic blood pressure 133 mm[Hg] Dr. Jean Keys MD Work Phone: [facility] 12-26-2024 15:53-0400 Body height 165.[address] Jean Keys MD Work Phone: [facility] 12-26-2024 15:53-0400 Body mass index (BMI) [Ratio] 30.4 kg/m2 Dr. Jean Keys MD Work Phone: [facility] 12-26-2024 15:53-0400 Body temperature 98.1 [degF] Dr. Jean Keys MD Work Phone: [facility] 12-26-2024 15:53-0400 Body weight [address] Jean Keys MD Work Phone: [facility] 12-26-2024 15:53-0400 Diastolic blood pressure 78 mm[Hg] Dr. Jean Keys MD Work Phone: [facility] 12-26-2024 15:53-0400 Heart rate 76 /min Dr. Jean Keys MD Work Phone: [facility] 12-26-2024 15:53-0400 Respiratory rate 16 /min Dr. Jean Keys MD Work Phone: [facility] 12-26-2024 15:53-0400 SaO2% (BldA) [Mass fraction] 98 % Dr. Jean Keys MD Work Phone: [facility] 12-26-2024 15:53-0400 Systolic blood pressure 132 mm[Hg] Dr. Jean Keys MD Work Phone: [facility] 12-25-2024 09:18-0400 Body height 165.[address] Jean Keys MD Work Phone: [facility] 12-25-2024 09:13-0400 Body mass index (BMI) [Ratio] 30.3 kg/m2 Dr. Jean Keys MD Work Phone: [facility] 12-25-2024 09:13-0400 Body weight 82.[address] Jean Keys MD Work Phone: [facility] 12-25-2024 09:13-0400 Diastolic blood pressure 78 mm[Hg] Dr. Jean Keys MD Work Phone: [facility] 12-25-2024 09:13-0400 Systolic blood pressure 124 mm[Hg] Dr. Jean Keys MD Work Phone: [facility] 11-14-2024 08:43-0400 Body mass index (BMI) [Ratio] 30.2 kg/m2 Dr. Jean Keys MD Work Phone: [facility] 11-14-2024 08:43-0400 Body weight 82.[address] Jean Keys MD Work Phone: [facility] 11-14-2024 08:43-0400 Diastolic blood pressure 83 mm[Hg] Dr. Jean Keys MD Work Phone: [facility] 11-14-2024 08:43-0400 Systolic blood pressure 122 mm[Hg] Dr. Jean Keys MD Work Phone: [facility] 11-11-2024 16:03-0400 Body mass index (BMI) [Ratio] 30.7 kg/m2 Dr. Jean Keys MD Work Phone: [facility] 11-11-2024 16:03-0400 Body weight 83.[address] Jean Keys MD Work Phone: [facility] 11-11-2024 16:03-0400 Diastolic blood pressure 82 mm[Hg] Dr. Jean Keys MD Work Phone: [facility] 11-11-2024 16:03-0400 Systolic blood pressure 126 mm[Hg] Dr. Jean Keys MD Work Phone: [facility] 11-11-2024 14:27-0400 Body mass index (BMI) [Ratio] 30.7 kg/m2 Dr. Jean Keys MD Work Phone: [facility] 11-11-2024 14:27-0400 Body temperature 98.5 [degF] Dr. Jean Keys MD Work Phone: [facility] 11-11-2024 14:27-0400 Body weight 83.[address] Jean Keys MD Work Phone: [facility] 11-11-2024 14:27-0400 Diastolic blood pressure 83 mm[Hg] Dr. Jean Keys MD Work Phone: [facility] 11-11-2024 14:27-0400 Heart rate 81 /min Dr. Jean Keys MD Work Phone: [facility] 11-11-2024 14:27-0400 SaO2% (BldA) [Mass fraction] 97 % Dr. Jean Keys MD Work Phone: [facility] 11-11-2024 14:27-0400 Systolic blood pressure 153 mm[Hg] Dr. Jean Keys MD Work Phone: [facility] 08-14-2024 12:11-0500 Body height 165.[address] Jean Keys MD Work Phone: [facility] 08-14-2024 12:11-0500 Body mass index (BMI) [Ratio] 30.1 kg/m2 Dr. Jean Keys MD Work Phone: [facility] 08-14-2024 12:11-0500 Body temperature 98.7 [degF] Dr. Jean Keys MD Work Phone: [facility] 08-14-2024 12:11-0500 Body weight 82.[address] Jean Keys MD Work Phone: [facility] 08-14-2024 12:11-0500 Diastolic blood pressure 92 mm[Hg] Dr. Jean Keys MD Work Phone: [facility] 08-14-2024 12:11-0500 Heart rate 112 /min Dr. Jean Keys MD Work Phone: [facility] 08-14-2024 12:11-0500 SaO2% (BldA) [Mass fraction] 99 % Dr. Jean Keys MD Work Phone: [facility] 08-14-2024 12:11-0500 Systolic blood pressure 126 mm[Hg] Dr. Jean Keys MD Work Phone: [facility] 11-27-2023 14:11-0400 Body height 165.[address] Jean Keys Work Phone: [facility] 11-27-2023 14:11-0400 Body mass index (BMI) [Ratio] 29.9 kg/m2 Dr. Jean Keys Work Phone: [facility] 11-27-2023 14:11-0400 Body weight 81.[address] Jean Keys Work Phone: [facility] 11-27-2023 14:11-0400 Diastolic blood pressure 70 mm[Hg] Dr. Jean Keys Work Phone: [facility] 11-27-2023 14:11-0400 Heart rate 82 /min Dr. Jean Keys Work Phone: [facility] 11-27-2023 14:11-0400 Respiratory rate 16 /min Dr. Jean Keys Work Phone: [facility] 11-27-2023 14:11-0400 SaO2% (BldA) [Mass fraction] 98 % Dr. Jean Keys Work Phone: [facility] 11-27-2023 14:11-0400 Systolic blood pressure 110 mm[Hg] Dr. Jean Keys Work Phone: [facility] 11-08-2023 13:03-0400 Body height 165.[address] Jean Keys Work Phone: [facility] 11-08-2023 12:58-0400 Body mass index (BMI) [Ratio] 30.3 kg/m2 Dr. Jean Keys Work Phone: [facility] 11-08-2023 12:58-0400 Body weight 82.[address] Jean Keys Work Phone: [facility] 11-08-2023 12:58-0400 Diastolic blood pressure 74 mm[Hg] Dr. Jean Keys Work Phone: [facility] 11-08-2023 12:58-0400 Systolic blood pressure 116 mm[Hg] Dr. Jean Keys Work Phone: [facility] 10-10-2022 08:53-0400 Body temperature 98.1 [degF] Dr. Jean Keys Work Phone: [facility] 10-10-2022 08:53-0400 Diastolic blood pressure 88 mm[Hg] Dr. Jean Keys Work Phone: [facility] 10-10-2022 08:53-0400 Heart rate 82 /min Dr. Jean Keys Work Phone: [facility] 10-10-2022 08:53-0400 Respiratory rate 18 /min Dr. Jean Keys Work Phone: [facility] 10-10-2022 08:53-0400 SaO2% (BldA) [Mass fraction] 100 % Dr. Jean Keys Work Phone: [facility] 10-10-2022 08:53-0400 Systolic blood pressure 130 mm[Hg] Dr. Jean Keys Work Phone: [facility] 10-10-2022 07:25-0400 Body height 165.[address] Jean Keys Work Phone: [facility] 10-10-2022 07:25-0400 Body mass index (BMI) [Ratio] 30.2 kg/m2 Dr. Jean Keys Work Phone: [facility] 10-10-2022 07:25-0400 Body weight 82.[address] Jean Keys Work Phone: [facility] 08-15-2022 08:33-0500 Body mass index (BMI) [Ratio] 28.3 kg/m2 Dr. Jean Keys Work Phone: [facility] 08-15-2022 08:33-0500 Body weight 77.[address] Jean Keys Work Phone: [facility] 11-11-2021 14:49-0400 Body height 165.[address] Jean Keys Work Phone: [facility] Work Phone: 11-11-2021 14:49-0400 Body mass index (BMI) [Ratio] 29.7 kg/m2 Dr. Jean Keys Work Phone: [facility] Work Phone: 11-11-2021 14:49-0400 Body temperature 98.4 [degF] Dr. Jean Keys Work Phone: [facility] Work Phone: 11-11-2021 14:49-0400 Body weight 80.[address] Jean Keys Work Phone: [facility] Work Phone: 11-11-2021 14:49-0400 Diastolic blood pressure 82 mm[Hg] Dr. Jean Keys Work Phone: [facility] Work Phone: 11-11-2021 14:49-0400 Heart rate 87 /min Dr. Jean Keys Work Phone: [facility] Work Phone: 11-11-2021 14:49-0400 Respiratory rate 16 /min Dr. Jean Keys Work Phone: [facility] Work Phone: 11-11-2021 14:49-0400 SaO2% (BldA) [Mass fraction] 99 % Dr. Jean Keys Work Phone: [facility] Work Phone: 11-11-2021 14:49-0400 Systolic blood pressure 124 mm[Hg] Dr. Jean Keys Work Phone: [facility] Work Phone: 10-25-2021 15:37-0400 Diastolic blood pressure 74 mm[Hg] Dr. Jean Keys Work Phone: [facility] Work Phone: 10-25-2021 15:37-0400 Systolic blood pressure 118 mm[Hg] Dr. Jean Keys Work Phone: [facility] Work Phone: 10-25-2021 15:12-0400 Body height 165.[address] Jean Keys Work Phone: [facility] Work Phone: 10-25-2021 15:12-0400 Body mass index (BMI) [Ratio] 29.7 kg/m2 Dr. Jean Keys Work Phone: [facility] Work Phone: 10-25-2021 15:12-0400 Body weight 81.[address] Jean Keys Work Phone: [facility] Work Phone: 03-17-2017 11:57-0400 BMI (Body Mass Index) 28.25 kg/m2 Annamarie Prescott RN RN [facility] Work Phone: 03-17-2017 11:57-0400 Body Temperature 99.2 [degF] Annamarie Prescott RN RN [facility] Work Phone: 03-17-2017 11:57-0400 Body Temperature 99.19 [degF] Annamarie Prescott RN RN [facility] Work Phone: 03-17-2017 11:57-0400 BP Diastolic 89 mm[Hg] Annamarie Prescott RN RN [facility] Work Phone: 03-17-2017 11:57-0400 BP Systolic 146 mm[Hg] Annamarie Prescott RN RN [facility] Work Phone: 03-17-2017 11:57-0400 Height 165.1 cm Annamarie Prescott RN RN [facility] Work Phone: 03-17-2017 11:57-0400 Pulse (Heart Rate) 83 /min Annamarie Prescott RN RN [facility] Work Phone: 03-17-2017 11:57-0400 Respiratory Rate 16 /min Annamarie Prescott RN RN [facility] Work Phone: 03-17-2017 11:57-0400 Weight 77.02 kg Annamarie Prescott RN RN [facility] Work Phone: 03-13-2017 15:31-0400 BMI (Body Mass Index) 28.52 kg/m2 Eden Murray NP [facility] 03-13-2017 15:31-0400 Body Temperature 99.7 [degF] Eden Murray RECORD LABEL INTERN [facility] 03-13-2017 15:31-0400 BP Diastolic 82 mm[Hg] Eden Murray RECORD LABEL INTERN [facility] 03-13-2017 15:31-0400 BP Systolic 132 mm[Hg] Eden Murray RECORD LABEL INTERN [facility] 03-13-2017 15:31-0400 Height 165.1 cm Eden Murray RECORD LABEL INTERN [facility] 03-13-2017 15:31-0400 Pulse (Heart Rate) 79 /min Eden Murray NP [facility] 03-13-2017 15:31-0400 Respiratory Rate 16 /min Eden Murray RECORD LABEL INTERN [facility] 03-13-2017 15:31-0400 Weight 77.75 kg Eden Murray RECORD LABEL INTERN [facility] Encounters Encounter Date Encounter Type Care Provider Facility Start: 02-05-2025 End: 02-05-[address] Jean Keys MD Work Phone: -[facility] Start: 02-05-2025 End: 02-05-2025 Patient encounter procedure Barbara Lucho RECORD LABEL INTERN-C -[facility] Work Phone: Start: 01-06-2025 End: 01-06-[address] Jean Keys MD Work Phone: [facility] Work Phone: Start: 01-06-2025 End: 01-06-2025 Patient encounter procedure Eden Murray RECORD LABEL INTERN-C -[facility] Work Phone: Start: 01-06-2025 End: 01-06-2025 ambulatory Eden Murray RECORD LABEL INTERN Facility:[facility] Start: 12-26-[address] Kelsie Keys MD Work Phone: [facility] Start: 12-26-2024 Encounter for gynecological examination (general) (routine) with abnormal findings Eden Murray NP [facility] Start: 12-26-2024 End: 12-26-2024 Patient encounter procedure Erik SEAY -[facility] Work Phone: Start: 12-26-2024 End: 12-26-2024 Patient encounter status Erik SEAY [facility] Start: 12-26-2024 End: 12-26-[address] Jean Keys MD Work Phone: [facility] Work Phone: Start: 12-25-2024 End: 12-25-2024 Patient encounter procedure Edenronan GIRON -[facility] Work Phone: Start: 12-25-2024 End: 12-25-2024 Patient encounter status Eden Murray RECORD LABEL INTERN-C [facility] Start: 12-25-2024 End: 12-25-[address] Jean Keys MD Work Phone: [facility] Work Phone: Start: 11-14-2024 End: 11-14-2024 Patient encounter procedure Eden Murray RECORD LABEL [place] -[facility] Work Phone: Start: 11-14-2024 End: 11-14-2024 ambulatory Edenronan Murray KAUR Facility:[facility] Start: 11-11-2024 End: 11-11-[address] Lizz Hawkins PA -[facility] Work Phone: Start: 11-11-2024 End: 11-11-2024 ambulatory Jean Keys Facility:[facility] Start: 11-11-2024 End: 11-11-2024 [facility] Start: 11-11-2024 End: 11-11-2024 ambulatory Jean Keys Facility:[facility] Start: 09-23-2024 Registered Referred [facility] -Employee [facility] Start: 09-23-2024 End: 09-23-[address] Jean Keys MD Work Phone: [facility] Work Phone: Start: 09-23-2024 End: 09-23-[address] Leyla Corona DO -Laboratory Work Phone: Start: 09-23-2024 End: 09-23-2024 ambulatory Leyla Corona Facility:[facility] Start: 08-14-2024 End: 08-14-2024 Patient encounter procedure Jonathan Ibarra [facility] Work Phone: Start: 08-14-2024 End: 08-14-2024 ambulatory Jonathan SEAY Facility:[facility] Start: 04-16-2024 End: 04-16-2024 ambulatory Lizz Hawkins Facility:[facility] Start: 11-27-2023 End: 11-27-2023 Encounter for general adult medical examination without abnormal findings Dr. Jean Keys Work Phone: [facility] Start: 11-27-2023 End: 11-27-[address] Jean Keys Work Phone: [facility] Work Phone: Start: 11-22-2023 End: 11-22-[address] Jean Keys Work Phone: [facility] Work Phone: Start: 11-22-2023 End: 11-22-[address] Jean Keys Work Phone: [facility]-Outpatient Breast Imaging Work Phone: Start: 11-09-2023 End: 11-09-[address] Jean Keys Work Phone: [facility] Work Phone: Start: 11-09-2023 End: 11-09-[address] Jean Keys Work Phone: [facility]-Laboratory Work Phone: Start: 11-09-[address] Karen Keys Work Phone: [facility] Start: 11-08-2023 End: 11-08-[address] Jean Keys Work Phone: [facility] Work Phone: Start: 07-27-2023 End: 07-27-[address] Jean Keys Work Phone: [facility] Work Phone: Start: 10-10-2022 Non-patient / Non-visit Dr. Kylah Keys Work Phone: [facility] Start: 10-10-2022 End: 10-10-2022 Admission to same day surgery center Dr. Jean Keys Work Phone: [facility]-Endoscopy Start: 10-10-2022 End: 10-10-[address] Jean Keys Work Phone: [facility] Work Phone: Start: 08-15-2022 Non-patient / Non-visit Dr. Kylah Keys Work Phone: [facility] Start: 11-11-[address] Kelsie Keys Work Phone: [facility] Start: 11-11-2021 End: 11-11-2021 Encounter for general adult medical examination without abnormal findings Dr. Jean Keys Work Phone: [facility] Start: 11-11-2021 End: 11-11-[address] Jean Keys Work Phone: [facility] Start: 11-04-2021 End: 11-04-[address] Jean Keys Work Phone: [facility]-Outpatient Breast Imaging Start: 11-03-[address] Karen Keys Work Phone: [facility] Start: 11-03-2021 End: 11-03-[address] Jean Keys Work Phone: [facility]-Laboratory Start: 10-25-2021 End: 10-25-[address] Jean Keys Work Phone: [facility] Start: 09-16-2021 End: 09-16-[address] Jean Keys Work Phone: [facility] Start: 07-27-2021 End: 07-27-[address] Jean Keys Work Phone: [facility] Procedures Date Procedure Procedure Detail Performing Clinician Start: 01-06-2025 Screening mammography César Keys MD Work Phone: Start: 09-23-[address] Fol[address] hormone measurement Dr[address] Jean Keys MD Work Phone: Comment on above: FEMALE:Follicular: 1 .4 - 18.1 mIU/mLMidcycle: 3.4 - 33.4 mIU/mLLuteal: 1.5 - 9.1 mIU/mLPost Menopause: 23.0 - 116.3 mIU/mLMALE: 1.4 - 18.1 mIU/mL NORMAL REFERENCE RANGES FEMALE FOLLICULAR 2.3 - 12.6 mIU/mL MID-CYCLE PEAK 5.2 - 17.5 mIU/mL LUTEAL 1.7 - 12.9 mIU/mL POST-MENOPAUSAL ON MHT 5.9 - 72.8 mIU/mL NOT ON MHT 12.7 - 132.2 mlU/mL MALE 0.7 - 10.8 mIU/mL Start: 09-23-2024 Vitamin D, 25-hydrox y measurement Dr. Jean Keys MD Work Phone: Comment on above: Vitamin D StatusDefi ciency: <20 ng/mL (50nmol/L)Insufficiency: 20-30 ng/mL (50-75 nmol/L)Sufficiency: 30-100 ng/mL (75-250 nmol/L)Toxicity: >100 ng/mL (>250 nmol/L) Start: 09-23-2024 Serum inorganic phosphate measurement Dr[address] Jean Keys MD Work Phone: Start: 11-22-2023 Screening mammography César Keys Work Phone: Start: 10-10-[address] Karen Keys Work Phone: Start: 11-04-2021 Screening mammography D ambar. Jean Keys Work Phone: Start: 03-13-2017 Gynecologic examination Routin e gynecological examination Eden Folsom RECORD LABEL INTERN Start: 03-13-2017 Screening mammography Mammogra m yearly screening Eden Trevor RECORD LABEL INTERN Start: 11-17-2016 End: 11-17-2016 Chiropractic manipulation Lizz B Dossi DC Work Phone: Start: 11-17-2016 End: 11-17-2016 Electric stimulation therapy Lizz Veronica Dossi DC Work Phone: Start: 11-17-2016 End: 11-17-2016 Mechanical traction therapy Lizz Veronica Dossi DC Work Phone: Start: 03-08-2016 End: 03-08-2016 Chiropract manj 1-2 regions Lizz Martin Dossi DC Work Phone: Start: 03-08-2016 End: 03-08-2016 Massage therapy Lizz Veronica Dossi DC Work Phone: Plan of Treatment Date Care Activity Detail Author Start: 01-06-2025 MG Breast - bilateral Screening [facility] Start: 11-27-2023 Patient referral [facility] Work Phone: Start: 10-10-2022 Urine test [facility] Start: 10-10-2022 Patient discharge [facility] Start: 11-11-2021 Patient referral [facility] Work Phone: Start: 03-17-2017 End: 03-17-2017 Appointment Appointment [facility] Work Phone: Start: 03-17-2017 End: 03-17-2017 Bacteria genital culture *CUV - Culture, VAG/CX Comprehensive [facility] Work Phone: Start: 03-13-2017 End: 03-13-2017 Appointment Appointment [facility] Start: 03-13-2017 End: 03-13-2017 *CUUID - Urine KAYLEEN Culture - Identificatn *CUUID - Urine KAYLEEN Culture - Identificatn [facility] Start: 03-13-2017 End: 03-13-2017 Mammogram, screening Mammogram, Screening, both breasts [facility] Start: 03-13-2017 End: 03-13-2017 Urology Referral Urology Referral [facility] Start: 03-08-2016 End: 03-08-2016 Follow up Appt 1x/Month Follow up Appt 1x/Month [facility] Work Phone: Colonoscopy [facility] MG Breast - bilatera l Screening [facility] Patient Education ACUTE%20LOW%20 BACK%20PAI N [facility] Work Phone: Patient referral [facility] Work Phone: Breast limited [facility] Vitamin D, 25-hydrox y measurement [facility] Immunizations Immunization Date Immunization Notes Care Provider Linda hall 05-30-2024 influenza, seasonal, injectable, preservative free Dr. Jean Keys MD Work Phone: [facility] 04-20-2023 influenza, injectabl e, quadrivalent, preservative free Dr. Jean Keys Work Phone: [facility] 04-25-2022 influenza, injectabl e, quadrivalent, preservative free Dr. Jean Keys Work Phone: [facility] 04-25-2022 influenza, seasonal, injectable Dr. Jean Keys Work Phone: [facility] 07-07-2021 Covid (Moderna) Dr. Jose Elias Keys Work Phone: [facility] 05-06-2021 influenza, injectabl e, quadrivalent, preservative free Dr. Jean Keys Work Phone: [facility] 05-06-2021 influenza, seasonal, injectable Dr. Jean Keys Work Phone: [facility] 08-26-2020 Maynor (Modern) Dr. Jose Elias Keys Work Phone: [facility] 07-29-2020 Maynor (Modern) Dr. Jose Elias Keys Work Phone: [facility] 04-29-2020 influenza, injectabl e, quadrivalent, preservative free Dr. Jean Keys Work Phone: [facility] 04-29-2020 influenza, seasonal, injectable Dr. Jean Keys Work Phone: [facility] 05-29-2019 influenza, injectabl e, quadrivalent, preservative free Dr. Jean Keys Work Phone: [facility] 05-29-2019 influenza, seasonal, injectable Dr. Jean Keys Work Phone: [facility] 04-20-2018 influenza, injectabl e, quadrivalent, preservative free Dr. Jean Keys Work Phone: [facility] 04-20-2018 influenza, seasonal, injectable Dr. Jean Keys Work Phone: [facility] 04-19-2017 influenza, injectabl e, quadrivalent, preservative free Dr. Jean Keys Work Phone: [facility] 04-19-2017 influenza, seasonal, injectable Dr. Jean Keys Work Phone: [facility] 04-21-2016 influenza, injectabl e, quadrivalent, preservative free Dr. Jean Keys Work Phone: [facility] 04-21-2016 influenza, seasonal, injectable Dr. Jean Keys Work Phone: [facility] 06-08-2015 influenza, injectabl e, quadrivalent, preservative free Dr. Jean Keys Work Phone: [facility] 06-08-2015 influenza, seasonal, injectable Dr. Jean Keys Work Phone: [facility] 04-23-2014 influenza, injectabl e, quadrivalent, preservative free Dr. Jean Keys Work Phone: [facility] 04-23-2014 influenza, seasonal, injectable Dr. Jean Keys Work Phone: [facility] 08-01-[address] Jean Keys Work Phone: [facility] Payers Date Payer Category Payer Self-pay [id number] 2024 Unknown [id number] 2016 Unknown [id number] Unknown [id number] [id number] Unknown [id number] 2.16.8 [id number] Unknown [id number] 2.16.8 [id number] Unknown [id number] 2.16.8 [id number] Unknown [id number] 2.16.8 [id number] Unknown [id number] 2.16.8 [id number] Unknown [id number] 2.16.8 [id number] Unknown [id number] 2.16.8 [id number] Unknown [id number] 2.16.8 [id number] Unknown [id number] 2.16.8 [id number] Social History Date Type Detail Facility Start: 10-25-2021 End: 11-27-2023 Tobacco smoking status NHIS Unknown if ever smoked [facility] Start: 1975 Sex Assigned At Female [facility] Start: 11-27-2023 Tobacco smoking status NHIS Never smoked tobacco (finding) [facility] Start: 10-02-2024 Sex Female (finding) [facility] NEGATED: Highlighted row [facility] Goals Date Patient Goal Desired Activity /State Mental Status Date Assessment Result Facility 10-10-2022 Cognitive function Level Of Consciousness Drowsy [facility] Work Phone: 10-10-2022 Cognitive function Voice/Name [facility] Work Phone: Clinical Notes 10-10-2022 to 11-11-2024 Note Date & Type Note Facility 11-11-2024 Evaluation note Diagnosis Onset Date Resolution Left acute otitis media resolved A 2024 2:22pm Left ear impacted cerumen resolved November 11, 2024 2:22pm Left otitis externa resolved November 11, 2024 2:22pm Segmental and somatic dysfunction of cervical region acute November 11, 2024 3:53pm Segmental and somatic dysfunction of lumbar region acute November 11, 2024 3:53pm Segmental and somatic dysfunction of pelvic region acute November 11, 2024 3:53pm Segmental and somatic dysfunction of thoracic region acute November 11, 2024 3:53pm Climacteric acute November 14, 2 025 8:39am Climacteric acute December 25 9:11am Postmenopausal HRT (hormone replacement therapy) acute December 25, 2024 9:11am Encounter for routine gynecological examination noneactive December 25, 2024 9:11am [facility] Work Phone: 1(146) 271-110504-21-2025 Evaluation note* Diagnosis Onset Date Resolution Status Admit Date Left acute otitis media resolved A 2024 2:22pm Left ear impacted cerumen resolved November 11, 2024 2:22pm Left otitis externa resolved November 11, 2024 2:22pm Segmental and somatic dysfunction of cervical region acute A pri2024 3:53pm Segmental and somatic dysfunction of lumbar region acute Apr il 2024 3:53pm Segmental and somatic dysfunction of pelvic region acute Apr 2024 3:53pm Segmental and somatic dysfunction of thoracic region acute A pri2024 3:53pm Climacteric acute November 14, 2 025 8:39am Encounter for routine gynecological examination noneactive December 252024 9:11am [facility] Work Phone: 1(639) 527-662604-21-2025 Evaluation note* Diagnosis Onset Date Resolution Status Admit Date Left acute otitis media resolved A 2024 2:22pm Left ear impacted cerumen resolved November 11, 2024 2:22pm Left otitis externa resolved November 11, 2024 2:22pm Segmental and somatic dysfunction of cervical region acute A 2024 3:53pm Segmental and somatic dysfunction of lumbar region acute Apr 2024 3:53pm Segmental and somatic dysfunction of pelvic region acute Apr 2024 3:53pm Segmental and somatic dysfunction of thoracic region acute A 2024 3:53pm Climacteric acute November 14, 2 025 8:39am Climacteric acute December 25 9:11am Postmenopausal HRT (hormone replacement therapy) acute December 25 025 9:11am Encounter for routine gynecological examination noneactive December 252024 9:11am Routine adult health maintenance acute December 26, 2024 3 :39pm Hypertension chronic December 26 3:39pm [facility] Work Phone: 1(264) 957-285401-22-2025 Evaluation note* Diagnosis Onset Date Resolution Status Admit Date Acute bronchitis acute August 14, 2024 11:55am [facility] Work Phone: 1(432) 325-529203-20-2023 History and physical note Author Dr. Danielle [facility] October 10, 2022 8:02am Note Date/Time October 10, 2022 7:3 0am [facility] Medical Records Department [address] [place] [address] History & Physical Exam 10/10/22 0730 MR#: [id number] Acct: [id number] Name: MARIAH BECK Rep #:[id number] : 1975 47 From: Breanna Danielle MD PCP: Dr. Jean Keys MD Status:R [facility] Location: [place] [address] HPI - General General Date of Admission: 10/10/22 HPI Narrative MARIAH BECK, is a 47 F who presents for: B. Patient never had previous colonoscopy. Patient has bowel movements daily denies any blood. Patient's daddid have multiple polyps in his 60s patient's not stated they are larger in size. Denies any family history of colon cancer. Patient has reflux only when eating certain foods otherwise not on any medication for this and does not have this regularly. Patient denies any chronic abdominal pain/nausea/vomiting. [facility] Medical History Alcohol use Carpal tunnel syndrome Colon cancer screening Fatigue Gestational hypertension Health care maintenance Hearing problem Heartburn History of gestational diabetes Hypertension Left shoulder pain Non-smoker Seasonal allergies Wears hearing aid Home Medications hydrochlorothiazide 25 mg tablet 25 mg PO QAM #90 tabs 08/22/22 [Rx Last Taken Unknown] Allergy/AdvReac Type Severity Reaction Status Date / Time labetalol Allergy Severe Rash Verified 10/10/22 07:17 Sulfa (Sulfonamide Allergy Severe Rash Verified 10/10/22 07:17 Antibiotics) adhesive AdvReac Rash Verified 10/10/22 07:17 Family History (Updated 08/15/22 @ 08:21 by Jany Banks) Mother Alcoholism Bladder cancer Depression Colon polyps Father Diabetes Myocardial infarction Hypertension Colon polyps Grandfather Diabetes High cholesterol Grandfather Diabetes High cholesterol Grandmother Myocardial infarction High cholesterol Other Heart disease Surgical History delivery delivered Hx of wisdom tooth extraction uterine ablation Social History Smoking Status: Never smoker alcohol intake: current alcohol intake frequency: a few times a month substance use type: does not use caffeine: Yes frequency: 3-4 times per week seatbelt use: always do you feel safe at home: Yes additional social history: Bill- Self Employed Patient is the employee health nurse at [employer] Past Medical/Surgical History Planned Operation Planned Operative Procedure/s: CSCOPE OA Previous Hospitalizations/Surgeries HX Hospitalizations: No Any Problems With Anesthesia: No You/Your Family Experience Fever (Hyperthermia) With Anes: No Cholinesterase deficiency: No Cardiovascular Hx of Irregular Heartbeat and/or Afib: No Hx Heart Attack: No Hx Congestive Heart Failure: No Hx Hypertension: Yes (CONTROLLED WITH MED) Hx Internal Defibrillator: No Hx Pacemaker: No Respiratory Hx Chronic Obstructive Pulmonary Disease (COPD): No Hx Asthma: No Hx Emphysema: No Hx Sleep Apnea: No Hx Respiratory Tract Infection/Cold (presently): No Do You Snore Loudly (louder than talking or can be heard): Yes Do You Often Feel Tired/ Fatigued/ Sleepy Dring Daytime?: Yes Has Anyone Observed You Stop Breathing During Sleep?: No Result (for STOP score): Positive Smoking Status: Never smoker Gastrointestinal Hx Gastroesophageal Reflux: No Hx Ulcer: No Special diet followed at home: No Neurological Hx Seizures: No Hx Multiple Sclerosis: No Hx Parkinson's Disease: No Hx Head/Neck Injury: No Hx Headaches: No Hx Back Injury/Pain: No Does patient have nerve stimulator: No Reproduction : No Endocrine Hx Diabetes: No (Hx GDM 1 st preg) Psycho/Social Hx Anxiety: No Hx Depression: No Miscellaneous Recent Exposure to Contagious Disease: No Allergies labetalol Allergy (Severe, Verified 10/10/22 07:17) Rash Sulfa (Sulfonamide Antibiotics) Allergy (Severe, Verified 10/10/22 07:17) Rash adhesive Adverse Reaction (Verified 10/10/22 07:17) Rash Discharge Is Pt Admitted From a Retirement, or a Alf: No After D/C, Where Do you Plan to Go: Return Home Vital Signs Vital Signs Vital Signs: 10/10/22 07:25 10/10/22 07:25 Temperature 98.6 F Temperature Source Temporal Pulse Rate 92 Respiratory Rate 16 Respiratory Pattern Normal Blood Pressure 145/97 H Blood Pressure Mean 113 Blood Pressure Source Monitor Blood Pressure Position Semi-Fowlers Blood Pressure Location Right Arm Pulse Ox 100 Oxygen Delivery Method Room Air Weight Weight: 181 lb 10.574 oz Body Mass Index (BMI) 30.2 Physical Exam Const alert, oriented x3 and no apparent distress HEENT normocephalic and head/scalp atraumatic Resp normal respiratory effort Cardio regular rate GI soft to palpation and non-tender; Negative for non-distended Palpation: Negative for guarding Extremity no clubbing, cyanosis or edema Neuro CN's II-XII intact bilaterally Psych mental status grossly normal Assessment & Plan Assessment/Plan (1) Colon cancer screening: Surgery Risks - Colonoscopy Risks Include but are not Limited To: Risks include but are not limited to: Bleeding, perforation requiring further surgery, inability to complete colonoscopy requiring barium enema. 10/10/22 0802 <Electronically signed by Breanna Danielle MD> Cosigner Signature (if applicable): CC: Dr. Jean Keys MD; Dr. Breanna Danielle MD~ Signed [facility] Work Phone: 1([phone]) 618-778803-20-2023 [facility]WM[facility] CenterEvaluation note* Diagnosis Onset Date Resolution Status Segmental and somatic dysfunction of cervical region acute Segmental and somatic dysfunction of lumbar region acute Segmental and somatic dysfunction of pelvic region acute Segmental and somatic dysfunction of thoracic region acute Segmental and somatic dysfunction of cervical region acute Segmental and somatic dysfunction of lumbar region acute Segmental and somatic dysfunction of pelvic region acute Segmental and somatic dysfunction of thoracic region acute Fatigue chronic [facility] Work Phone: Evaluation note* Diagnosis Onset Date Resolution Status Segmental and somatic dysfunction of cervical region acute Segmental and somatic dysfunction of lumbar region acute Segmental and somatic dysfunction of pelvic region acute Segmental and somatic dysfunction of thoracic region acute Segmental and somatic dysfunction of cervical region acute Segmental and somatic dysfunction of lumbar region acute Segmental and somatic dysfunction of pelvic region acute Segmental and somatic dysfunction of thoracic region acute Fatigue chronic Health care maintenance acut e Hypertension chronic [facility] Work Phone: Evaluation note* Diagnosis Onset Date Resolution Status Colon cancer screening acute [facility] Work Phone: Evaluation note* Diagnosis Onset Date Resolution Status Neck pain acute Segmental and somatic dysfunction of cervical region acute Segmental and somatic dysfunction of lumbar region acute Segmental and somatic dysfunction of pelvic region acute Segmental and somatic dysfunction of thoracic region acute Back pain noneactive Encounter for routine gynecological examination noneactive Sleep disturbance noneactive [facility] Work Phone: Evaluation note* Diagnosis Onset Date Resolution Status Encounter for routine gynecological examination noneactive Sleep disturbance noneactive Health care maintenance acut e Hypertension chronic Right shoulder pain chronic [facility] Work Phone: Hospital Discharge instructionsAmbulatory Orders* Dermatology Location: None Selected [facility] Work Phone: Hospital Discharge instructionsAmbulatory Orders* General Surgery Location: None Selected [facility] Work Phone: Reason for referral (narrative)No reason for referral information availableWMercy [facility] Work Phone: Summary Purpose Family History Relationship Condition Age at Onset Recorded Date/T cody Not Specified Cardiac disease Unknown mother Alcoholism Unknown Malignant neoplasm of urinary bladder Unk nown Depression Unknown father Diabetes mellitus Unknown Myocardial infarction Unknown Hypertension Unknown grandfather Diabetes mellitus Unknown High blood cholesterol Unknown grandmother Myocardial infarction Unknown Relationship Condition Age at Onset Recorded Date/T cody Not Specified Cardiac disease Unknown mother Alcoholism Unknown Malignant neoplasm of urinary bladder Unk nown Depression Unknown Polyp of colon Unknown father Diabetes mellitus Unknown Myocardial infarction Unknown Hypertension Unknown grandfather Diabetes mellitus Unknown High blood cholesterol Unknown grandmother Myocardial infarction Unknown Advance Directives Advance Directive Response Recorded Date/ Time Living Will No October 06, 2022 3:49pm Power of Rn Community No October 06 3:49pm Advance Directive Response Recorded Date/ Time Living Will No December 26, 2022 2 :31pm Power of Rn Community No December 26, 2022 2:31pm Chief Complaint and Reason for Visit Chief Complaint Adjustment NECK PAIN Annual ([employer]) E ORDERS/2 [employer] SCREENING Reason for Visit Segmental and somati c dysfunction of cervical region Segmental and somatic dysfunction of lumbar region Segmental and somatic dysfunction of pelvic region Segmental and somatic dysfunction of thoracic region Segmental and somatic dysfunction of cervical region Segmental and somatic dysfunction of lumbar region Segmental and somatic dysfunction of pelvic region Segmental and somatic dysfunction of thoracic region Fatigue Chief Complaint Adjustment NECK PAIN Annual ([employer]) E ORDERS/2 [employer] SCREENING 1 month f/u BP Reason for Visit Segmental and somati c dysfunction of cervical region Segmental and somatic dysfunction of lumbar region Segmental and somatic dysfunction of pelvic region Segmental and somatic dysfunction of thoracic region Segmental and somatic dysfunction of cervical region Segmental and somatic dysfunction of lumbar region Segmental and somatic dysfunction of pelvic region Segmental and somatic dysfunction of thoracic region Fatigue Health care maintenance Hypertension Chief Complaint Amb Documentation Reason for Visit Colon cancer screeni ng Chief Complaint Back pain Annual ([employer]) Reason for Visit Neck pain Segmental and somatic dysfunction of cervical region Segmental and somatic dysfunction of lumbar region Segmental and somatic dysfunction of pelvic region Segmental and somatic dysfunction of thoracic region Back pain Encounter for routine gynecological examination Sleep disturbance Chief Complaint Annual ([employer]) SCREENING YEARLY Reason for Visit Encounter for routin e gynecological examination Sleep disturbance Health care maintenance Hypertension Right shoulder pain Chief Complaint Admit Date CHEST CONGESTION/COUGH August 14 11:55am INT LABS September 23, 2024 7:22 am [employer] EM[employer] September 23, 2024 7:24 am Reason for Visit Admit Date Acute bronchitis August 14, 2024 1 1:55am Chief Complaint Admit Date INT LABS September 23, 2024 7:22 am [employer] September 23, 2024 7:24 am EARACHE November 11, 2024 2:2 2pm REEVAL November 11, 2024 3:5 3pm Hormone Replacement Therapy *co-pay $20 November 14, 2024 8:39am Annual ([employer]) December 25, 2024 9:11a m ACUTE MED REFILL December 26, 2024 3:39p m Reason for Visit Admit Date Left acute otitis media November 11, 2024 2:22pm Left ear impacted cerumen November 11 2:22pm Left otitis externa November 11, 2024 2:2 2pm Segmental and somatic dysfunction of cer vical region November 11, 2024 3:53pm Segmental and somatic dysfunction of lum bar region November 11, 2024 3:53pm Segmental and somatic dysfunction of pel hernesto region November 11, 2024 3:53pm Segmental and somatic dysfunction of tho racic region November 11, 2024 3:53pm Climacteric November 14, 2024 8:3 9am Climacteric December 25, 2024 9:11a m Postmenopausal HRT (hormone replacement therapy) December 25, 2024 9:11am Encounter for routine gynecological exam ination December 25, 2024 9:11am Chief Complaint Admit Date INT LABS September 23, 2024 7:22 am [employer] September 23, 2024 7:24 am EARACHE November 11, 2024 2:2 2pm REEVAL November 11, 2024 3:5 3pm Hormone Replacement Therapy *co-pay $20 November 14, 2024 8:39am Annual ([employer]) December 25, 2024 9:11a m Reason for Visit Admit Date Left acute otitis media November 11, 2024 2:22pm Left ear impacted cerumen November 11 2:22pm Left otitis externa November 11, 2024 2:2 2pm Segmental and somatic dysfunction of cer vical region November 11, 2024 3:53pm Segmental and somatic dysfunction of lum bar region November 11, 2024 3:53pm Segmental and somatic dysfunction of pel hernesto region November 11, 2024 3:53pm Segmental and somatic dysfunction of tho racic region November 11, 2024 3:53pm Climacteric November 14, 2024 8:3 9am Encounter for routine gynecological exam ination December 25, 2024 9:11am Chief Complaint Admit Date INT LABS September 23, 2024 7:22 am [employer] September 23, 2024 7:24 am EARACHE November 11, 2024 2:2 2pm REEVAL November 11, 2024 3:5 3pm Hormone Replacement Therapy *co-pay $20 November 14, 2024 8:39am Annual ([employer]) December 25, 2024 9:11a m ACUTE MED REFILL December 26, 2024 3:39p m Screening for breast cancer January 06 2:23pm Reason for Visit Admit Date Left acute otitis media November 11, 2024 2:22pm Left ear impacted cerumen November 11 2:22pm Left otitis externa November 11, 2024 2:2 2pm Segmental and somatic dysfunction of cer vical region November 11, 2024 3:53pm Segmental and somatic dysfunction of lum bar region November 11, 2024 3:53pm Segmental and somatic dysfunction of pel hernesto region November 11, 2024 3:53pm Segmental and somatic dysfunction of tho racic region November 11, 2024 3:53pm Climacteric November 14, 2024 8:3 9am Climacteric December 25, 2024 9:11a m Postmenopausal HRT (hormone replacement therapy) December 25, 2024 9:11am Encounter for routine gynecological exam ination December 25, 2024 9:11am Routine adult health maintenance December 3:39pm Hypertension December 26, 2024 3:39p m Chief Complaint Admit Date EARACHE November 11, 2024 2:2 2pm REEVAL November 11, 2024 3:5 3pm Hormone Replacement Therapy *co-pay $20 November 14, 2024 8:39am Annual ([employer]) December 25, 2024 9:11a m ACUTE MED REFILL December 26, 2024 3:39p m Screening for breast cancer January 06 2:23pm lump right breast February 05, 2025 11:2 4am Additional Source Comments INFORMATION SOURCE (unrecogn ized section and content) DATE CREATED AUTHOR 08/14/2019 [facility] DATE CREATED AUTHOR AUTHOR'S ORGANIZ ATION 01/12/2025 [facility] Care Teams (unrecognized sec tion and content) Team Status: Active Member Role Status Dates Dr. Jean Keys MD Family Provider Active Dr. Jean Keys MD Primary Care Provider Active Team Status: Active Member Role Status Dates Dr. Jean Keys MD Primary Care Provider Active Jany Banks Attending Provider Active Team Status: Active Member Role Status Dates Dr. Jean Keys MD Primary Care Provider, Refer ring Provider Active Dr. Breanna Danielle MD Attending Provider, Other Pro vider Active Team Status: Inactive Member Role Status Dates Dr. Jean Keys MD Primary Care Provider, Refer ring Provider Active Dr. Breanna Danielle MD Attending Provider Active Team Status: Inactive Member Role Status Dates Dr. Jean Keys MD Primary Care Provider, Refer ring Provider Active Dr. Lizz Hawkins DC Attending Provider Active Team Status: Inactive Member Role Status Dates Dr. Jean Keys MD Primary Care Provider, Refer ring Provider Active Eden Murray RECORD LABEL INTERN, RECORD LABEL INTERN-C Attending Provider Active Team Status: Active Member Role Status Dates Dr. Jean Keys MD Primary Care Provider Active Health Risk Assessment Attending Provider Active Team Status: Inactive Member Role Status Dates Dr. Jean Keys MD Primary Care Provider Active Eden Murray RECORD LABEL INTERN, RECORD LABEL INTERN-C Attending Provider Active Team Status: Inactive Member Role Status Dates Dr. Jean Keys MD Primary Care Manuel rodgers, Attending Provider, Referring Provider Active Team Status: Inactive Member Role Status Dates Dr. Jean Keys MD Primary Care Provider Active Eden Murray RECORD LABEL INTERN, RECORD LABEL INTERN-C Attending Provider, Referring Provider Active Team Status: Inactive Member Role Status Dates DAWOOD Moreno Attending Provider Active Sta rt: August 14, 2024 End: August 14, 2024 Team Status: Inactive Member Role Status Dates Dr. Jean Keys MD Primary Care Provider Active Start: September 23, 2024 End: September 23, 2024 Dr. Leyla Corona DO Attending Provider Activ e Start: September 23, 2024 End: September 23, 2024 Dr. Leyla Corona DO Referring Provider Activ e Start: September 23, 2024 End: September 23, 2024 Team Status: Active Member Role Status Dates Dr. Jean Keys MD Primary Care Provider Active Start: September 23, 2024 Health Risk Assessment Attending Provider Active Start: September 23, 2024 Health Risk Assessment Referring Provider Active Start: September 23, 2024 Team Status: Active Member Role Status Dates Dr. Jean Keys MD Primary Care Provider Active Team Status: Inactive Member Role Status Dates Dr. Jean Keys MD Primary Care Provider Active Start: November 11, 2024 End: November 11, 2024 Dr. Jean Keys MD Referring Provider Active Start: November 11, 2024 End: November 11, 2024 DAWOOD Moreno Attending Provider Active Sta rt: November 11, 2024 End: November 11, 2024 Team Status: Inactive Member Role Status Dates Dr. Jean Keys MD Primary Care Provider Active Start: November 11, 2024 End: November 11, 2024 Dr. Jean Keys MD Referring Provider Active Start: November 11, 2024 End: November 11, 2024 Dr. Lizz Hawkins DC Attending Provider Active S tart: November 11, 2024 End: November 11, 2024 Team Status: Inactive Member Role Status Dates Dr. Jean Keys MD Primary Care Provider Active Start: November 14, 2024 End: November 14, 2024 Dr. Jean Keys MD Referring Provider Active Start: November 14, 2024 End: November 14, 2024 Eden Murray RECORD LABEL INTERN, RECORD LABEL INTERN-C Attending Provider Active Start: November 14, 2024 End: November 14, 2024 Team Status: Inactive Member Role Status Dates Dr. Jean Keys MD Primary Care Provider Active Start: December 25, 2024 End: December 25, 2024 Dr. Jean Keys MD Referring Provider Active Start: December 25, 2024 End: December 25, 2024 Eden Murray RECORD LABEL INTERN, RECORD LABEL INTERN-C Attending Provider Active Start: December 25, 2024 End: December 25, 2024 Team Status: Inactive Member Role Status Dates Dr. Jean Keys MD Primary Care Provider Active Start: December 26, 2024 End: December 26, 2024 Dr. Jean Keys MD Referring Provider Active Start: December 26, 2024 End: December 26, 2024 DAWOOD Ramos Attending Provider Active St art: December 26, 2024 End: December 26, 2024 Team Status: Inactive Member Role Status Dates Dr. Jean Keys MD Primary Care Provider Active Start: January 06, 2025 End: January 06, 2025 Eden Murray RECORD LABEL INTERN, RECORD LABEL INTERN-C Attending Provider Active Start: January 06, 2025 End: January 06, 2025 Eden Murray RECORD LABEL INTERN, RECORD LABEL INTERN-C Referring Provider Active Start: January 06, 2025 End: January 06, 2025 Team Status: Active Member Role/Relationship Status Dates Dr. Jean Keys MD Primary Care Provider Active Team Status: Inactive Member Role/Relationship Status Dates Dr. Jean Keys MD Primary Care Provider Active Start: November 11, 2024 End: November 11, 2024 Dr. Jean Keys MD Referring Provider Active Start: November 11, 2024 End: November 11, 2024 DAWOOD Moreno Attending Provider Active Sta rt: November 11, 2024 End: November 11, 2024 Team Status: Inactive Member Role/Relationship Status Dates Dr. Jean Keys MD Primary Care Provider Active Start: November 11, 2024 End: November 11, 2024 Dr. Jean Keys MD Referring Provider Active Start: November 11, 2024 End: November 11, 2024 Dr. Lizz Hawkins DC Attending Provider Active S tart: November 11, 2024 End: November 11, 2024 Team Status: Inactive Member Role/Relationship Status Dates Dr. Jean Keys MD Primary Care Provider Active Start: November 14, 2024 End: November 14, 2024 Dr. Jean Keys MD Referring Provider Active Start: November 14, 2024 End: November 14, 2024 Eden Murray NP, RECORD LABEL INTERN-C Attending Provider Active Start: November 14, 2024 End: November 14, 2024 Team Status: Inactive Member Role/Relationship Status Dates Dr. Jean Keys MD Primary Care Provider Active Start: December 25, 2024 End: December 25, 2024 Dr. Jean Keys MD Referring Provider Active Start: December 25, 2024 End: December 25, 2024 Eden Murray NP RECORD LABEL INTERN-C Attending Provider Active Start: December 25, 2024 End: December 25, 2024 Team Status: Inactive Member Role/Relationship Status Dates Dr. Jean Keys MD Primary Care Provider Active Start: December 26, 2024 End: December 26, 2024 Dr. Jean Keys MD Referring Provider Active Start: December 26, 2024 End: December 26, 2024 DAWOOD Ramos Attending Provider Active St art: December 26, 2024 End: December 26, 2024 Team Status: Inactive Member Role/Relationship Status Dates Dr. Jean Keys MD Primary Care Provider Active Start: January 06, 2025 End: January 06, 2025 Eden Murray NP, RECORD LABEL INTERN-C Attending Provider Active Start: January 06, 2025 End: January 06, 2025 Eden Murray NP RECORD LABEL INTERN-C Referring Provider Active Start: January 06, 2025 End: January 06, 2025 Team Status: Inactive Member Role/Relationship Status Dates Dr. Jean Keys MD Primary Care Provider Active Start: February 05, 2025 End: February 05, 2025 Dr. Jean Keys MD Referring Provider Active Start: February 05, 2025 End: February 05, 2025 BREE Perez Attending Provider Active Start: February 05, 2025 End: February 05, 2025 FOR RECORDS PERTAINING TO PATIENTS WHO ARE OR HAVE BEEN ENROLLED IN A CHEMICAL DEPENDENCY/SUBSTANCEABUSE PROGRAM, SOME INFORMATION MAY BE OMITTED. This clinical summary was aggregated from multiple sources. Caution should be exercised in using it in the provision of clinical care. This summary normalizes information from multiple sources, and as a consequence, information in this document may materially change the coding, format and clinical context of patient data. In addition, data may be omitted in some cases. CLINICAL DECISIONS SHOULD BE BASED ON THE PRIMARY CLINICAL RECORDS. [email or web address] provides no warranty or guarantee of the accuracy or completeness of information in this document.
== END | disposition home or self-care (01) ==
LOC: OPUS 13:26
PROVIDERS: PCP Internal Medicine; Referring Provider Nurse Practitioner Family; Visit Provider Nurse Practitioner Family
DX: N63.14 Unspecified lump in the right breast, lower inner quadrant (principal)
CPT/HCPCS: 76642

== ENCOUNTER → 2025-07-14 | Outpatient (CLI) | payer OTHER, SELFPAY | END | disposition home or self-care (01) | LOC: LABSPEC 16:24 | PROVIDERS: PCP Internal Medicine; Visit Provider Nurse Practitioner Family | DX: N89.8 Other specified noninflammatory disorders of vagina (principal) | CPT/HCPCS: 87070; 87205 ==